=== PATIENT | male | born 1960 | race Two or more races ===

== ENCOUNTER 2019-12-29 08:04 | Outpatient (REF) | payer OTHER, MEDICAID, SELFPAY | END 2019-12-29 08:05 | disposition home or self-care (01) | LOC: HO.LAB 08:04 | PROVIDERS: Visit Provider Internal Medicine | DX: Z20.828 Contact with and (suspected) exposure to other viral communicable diseases (principal) | CPT/HCPCS: C9803; U0003 ==

== ENCOUNTER 2020-02-09 08:56 | Outpatient (REF) | payer OTHER, MEDICAID, SELFPAY | END 2020-02-09 08:57 | disposition home or self-care (01) | LOC: HO.LAB 08:56 | PROVIDERS: Visit Provider Internal Medicine | DX: Z20.822 Contact with and (suspected) exposure to COVID-19 (principal) | CPT/HCPCS: 36415; C9803; U0003 ==

== ENCOUNTER 2020-02-26 07:03 | Outpatient (REF) | payer OTHER, MEDICAID, SELFPAY ==
[2020-02-26 07:58] LABS: MANUAL DIFF FLAG NO
[2020-02-26 08:13] LABS: Basophils Percent Auto 0.6 % (0-2); Eosinophils Absolute Auto 0.6 X10*3/uL (0.0-0.4); Eosinophils Percent Auto 8.8 % (0-4); Hematocrit 42.7 % (42-52); Hemoglobin 13.8 g/dl (14.0-18.0); Imm Gran Abs Auto 0.03 X10*3/uL (0.00-0.03); Imm Gran Pct Auto 0.4 % (0.0-0.4); Lymphocytes Absolute Auto 0.9 X10*3/uL (1.2-4.9); Lymphocytes Percent Auto 12.9 % (20-40); Mean Corpuscular HGB Conc 32.3 g/dl (31.0-36.0); Mean Corpuscular Hemoglobin 30.5 pg (27.0-33.0); Mean Corpuscular Volume 94.3 fL (80-98); Mean Platelet Volume 9.9 fL (9.4-12.4); Monocytes Absolute Auto 0.7 X10*3/uL (0.1-1.2); Monocytes Percent Auto 10.3 % (2-11); Neutrophils Absolute Auto 4.8 X10*3/uL (2.0-8.3); Platelet Count 272 X10*3/uL (160-400); Red Blood Count 4.53 X10*6/uL (4.60-5.80); Red Cell Distribution Width 12.8 % (11.0-16.0); White Blood Count 7.1 X10*3/uL (4.8-10.8)
[2020-02-26 08:38] LABS: Alanine Aminotransferase 14 U/L (0-40); Albumin Level 4.3 g/dL (3.5-5.0); Alkaline Phosphatase 63 U/L (39-117); Anion Gap 13 (12-20); Aspartate Amino Transferase 15 U/L (5-37); Bilirubin Total 0.3 mg/dL (0.0-1.0); Blood Urea Nitrogen 30 mg/dL (9-16); Calcium 9.4 mg/dL (8.4-10.2); Carbon Dioxide 26 mmol/L (22-29); Chloride 105 mmol/L (96-108); Estimated Glomerular Filt Rate 59; Glucose Random 171 mg/dL (60-115); Potassium 4.9 mmol/l (3.3-5.1); Sodium 139 mmol/L (135-145); Total Protein 7.1 g/dL (6.5-8.0)
[2020-02-26 08:42] LABS: Estimated Average Glucose 214 mg/dL; Hemoglobin A1c % 9.1 %
== END 2020-02-26 07:04 | disposition home or self-care (01) ==
LOC: HO.LAB 07:03
PROVIDERS: PCP Internal Medicine; Visit Provider Internal Medicine
DX: I10 Essential (primary) hypertension (principal); E11.9 Type 2 diabetes mellitus without complications
CPT/HCPCS: 36415; 80053; 83036; 85025

== ENCOUNTER 2020-09-16 09:00 | Outpatient (REF) | payer MEDICARE, MEDICAID, SELFPAY ==
[2020-09-16 09:52] LABS: MANUAL DIFF FLAG NO
[2020-09-16 10:01] LABS: Basophils Absolute Auto 0.1 X10*3/uL (0.0-0.2); Basophils Percent Auto 0.7 % (0-2); Eosinophils Absolute Auto 0.9 X10*3/uL (0.0-0.4); Eosinophils Percent Auto 10.6 % (0-4); Hematocrit 42.9 % (42-52); Hemoglobin 14.1 g/dl (14.0-18.0); Imm Gran Abs Auto 0.03 X10*3/uL (0.00-0.03); Imm Gran Pct Auto 0.3 % (0.0-0.4); Lymphocytes Absolute Auto 2.4 X10*3/uL (1.2-4.9); Mean Corpuscular HGB Conc 32.9 g/dl (31.0-36.0); Mean Corpuscular Hemoglobin 30.5 pg (27.0-33.0); Mean Corpuscular Volume 92.9 fL (80-98); Mean Platelet Volume 10.3 fL (9.4-12.4); Monocytes Absolute Auto 0.7 X10*3/uL (0.1-1.2); Monocytes Percent Auto 7.8 % (2-11); Neutrophils Absolute Auto 4.7 X10*3/uL (2.0-8.3); Neutrophils Percent Auto 53.6 % (45-73); Platelet Count 282 X10*3/uL (160-400); Red Blood Count 4.62 X10*6/uL (4.60-5.80); Red Cell Distribution Width 12.9 % (11.0-16.0); White Blood Count 8.8 X10*3/uL (4.8-10.8)
[2020-09-16 10:24] LABS: Estimated Average Glucose 154 mg/dL
[2020-09-16 10:27] LABS: Alanine Aminotransferase 15 U/L (0-40); Albumin Level 4.1 g/dL (3.5-5.0); Alkaline Phosphatase 54 U/L (39-117); Anion Gap 12 (12-20); Aspartate Amino Transferase 18 U/L (5-37); Bilirubin Total 0.4 mg/dL (0.0-1.0); Blood Urea Nitrogen 31 mg/dL (9-16); Carbon Dioxide 23 mmol/L (22-29); Chloride 106 mmol/L (96-108); Estimated Glomerular Filt Rate 56; Glucose Random 109 mg/dL (60-115); Sodium 136 mmol/L (135-145); Total Protein 6.9 g/dL (6.5-8.0)
== END 2020-09-16 09:01 | disposition home or self-care (01) ==
LOC: HO.LAB 09:00
PROVIDERS: PCP Internal Medicine; Visit Provider Internal Medicine
DX: Z01.818 Encounter for other preprocedural examination (principal); E11.9 Type 2 diabetes mellitus without complications; I10 Essential (primary) hypertension
CPT/HCPCS: 36415; 80053; 83036; 85025

== ENCOUNTER 2021-04-05 15:00 | Outpatient (RCR) | payer MEDICARE, MEDICAID, SELFPAY | END 2021-04-05 15:57 | disposition home or self-care (01) | LOC: HO.PT 15:00 | PROVIDERS: PCP Internal Medicine; Visit Provider Orthopaedic Surgery | DX: Z98.890 Other specified postprocedural states (principal) | CPT/HCPCS: 97035; 97110; 97112; 97140; 97162; 97530 ==

== ENCOUNTER 2021-04-06 05:58 | Outpatient (REF) | payer MEDICARE, MEDICAID, SELFPAY ==
[2021-04-06 06:13] LABS: MANUAL DIFF FLAG NO
[2021-04-06 07:19] LABS: Basophils Absolute Auto 0.1 X10*3/uL (0.0-0.2); Basophils Percent Auto 0.5 % (0-2); Eosinophils Percent Auto 11.4 % (0-4); Hematocrit 44.3 % (42.0-52.0); Hemoglobin 14.6 g/dl (14.0-18.0); Imm Gran Abs Auto 0.04 X10*3/uL (0.00-0.03); Imm Gran Pct Auto 0.4 % (0.0-0.4); Lymphocytes Absolute Auto 2.4 X10*3/uL (1.2-4.9); Lymphocytes Percent Auto 26.2 % (20-40); Mean Corpuscular Hemoglobin 30.7 pg (27.0-33.0); Mean Corpuscular Volume 93.3 fL (80.0-98.0); Monocytes Absolute Auto 0.7 X10*3/uL (0.1-1.2); Monocytes Percent Auto 7.7 % (2-11); Neutrophils Absolute Auto 4.9 x10*3/uL (2.0-8.3); Neutrophils Percent Auto 53.8 % (45-73); Platelet Count 281 X10*3/uL (160-400); Red Blood Count 4.75 X10*6/uL (4.60-5.80); Red Cell Distribution Width 13.2 % (11.0-16.0); White Blood Count 9.2 X10*3/uL (4.8-10.8)
[2021-04-06 07:36] LABS: Estimated Average Glucose 148 mg/dL; Hemoglobin A1c % 6.8 %
[2021-04-06 07:46] LABS: Alanine Aminotransferase 13 U/L (0-40); Albumin Level 4.3 g/dL (3.5-5.0); Alkaline Phosphatase 70 U/L (39-117); Anion Gap 12 (12-20); Aspartate Amino Transferase 16 U/L (5-37); Bilirubin Total 0.3 mg/dL (0.0-1.0); Blood Urea Nitrogen 35 mg/dL (9-16); Calcium 10.4 mg/dL (8.4-10.2); Carbon Dioxide 24 mmol/L (22-29); Chloride 108 mmol/L (96-108); Cholesterol 134 mg/dL; Estimated Glomerular Filt Rate 53; Glucose Fasting 135 mg/dL (60-99); HDL Cholesterol 33 mg/dL; LDL Cholesterol Calculated 72 mg/dl; Potassium 5.2 mmol/L (3.3-5.1); Sodium 139 mmol/L (135-145); Total Protein 7.5 g/dL (6.5-8.0); Triglycerides 146 mg/dL
[2021-04-06 08:09] LABS: Prostate Specific Antigen Scr 0.24 ng/mL (<0.05-4.0)
[2021-04-06 08:23] LABS: Appearance Urine CLEAR; Color Urine YELLOW; Glucose Urine UA NEG (NEG); Leukocyte Esterase Urine NEG (NEG); Nitrite Urine NEG (NEG); PH 5.5 (5.0-8.0); Specific Gravity - Urine >= 1.030 (1.005-1.025); Urine Blood NEG (NEG); Urine Ketones NEG (NEG); Urine Protein 2+ MG/DL (NEG-TRACE)
[2021-04-06 08:44] LABS: RBC Urine 0 /HPF (0); Squamous Epithelial Cell Urine TRACE /LPF; WBC Urine 0 /HPF (0-4)
[2021-04-06 08:46] LABS: Creatinine Urine 81.64 mg/dL
[2021-04-06 09:03] LABS: Microalbum/Creatinine Ratio Ur 805.9 ug/mg cr
== END 2021-04-06 05:59 | disposition home or self-care (01) ==
LOC: HO.LAB 05:58
PROVIDERS: PCP Internal Medicine; Visit Provider Internal Medicine
DX: I12.9 Hypertensive chronic kidney disease with stage 1 through stage 4 chronic kidney disease, or unspecified chronic kidney disease (principal); E11.22 Type 2 diabetes mellitus with diabetic chronic kidney disease; E78.00 Pure hypercholesterolemia, unspecified; N40.0 Benign prostatic hyperplasia without lower urinary tract symptoms; N18.9 Chronic kidney disease, unspecified; Z12.5 Encounter for screening for malignant neoplasm of prostate
CPT/HCPCS: 36415; 80053; 80061; 81001; 82043; 83036; 84153; 85025

== ENCOUNTER 2021-05-12 09:53 | Outpatient (REF) | payer OTHER, MEDICAID, SELFPAY ==
--- NOTE | ~2021-05-12 | US_ITS ---
EXAMINATION: US EXTRACRANIAL CAROTID DUPLEX, BILATERAL CLINICAL INFORMATION: Carotid stenosis COMPARISON: Carotid duplex on 07/31/2018 TECHNIQUE: Real-time ultrasound and Doppler techniques (integrating B-mode 2-D vascular images, Doppler spectral analysis and color-flow Doppler imaging) were utilized to interrogate the extracranial carotid arteries, the vertebral arteries and proximal subclavian arteries bilaterally. The degree of stenosis is determined by criteria similar to NASCET. FINDINGS: Right Side: 1. There is calcified atherosclerotic plaque seen in the bifurcation/proximal ICA region. 2. The common carotid artery PSV proximally is 103 cm/s and distally 175 cm/s. 3. The proximal internal carotid artery velocities are 224 cm/s systolic and 49 cm/s diastolic. 4. The proximal external carotid artery PSV is 177 cm/s. 5. The vertebral artery shows antegrade flow. 6. The subclavian artery waveforms are normal. Left Side: 1. There is calcified atherosclerotic plaque seen in the bifurcation/proximal ICA region. 2. The common carotid artery PSV proximally is 120 cm/s and distally 240 cm/s. 3. The proximal internal carotid artery velocities are 159 cm/s systolic and 28 cm/s diastolic. 4. The proximal external carotid artery PSV is 168 cm/s. 5. The vertebral artery shows antegrade flow. 6. The subclavian artery waveforms are normal. US/US carotid duplex BI IMPRESSION: 1. RIGHT: Moderate, hemodynamically significant stenosis of the proximal right internal carotid artery corresponding to a 50-79% stenosis by velocity criteria. 2. LEFT: Moderate, hemodynamically significant stenosis of the proximal left internal carotid artery corresponding to a 50-79% stenosis by velocity criteria. 3. Progression of disease on the left compared to 07/31/2018.
== END 2021-05-12 09:54 | disposition home or self-care (01) ==
LOC: HO.US 09:53
PROVIDERS: Visit Provider Internal Medicine
DX: I65.23 Occlusion and stenosis of bilateral carotid arteries (principal)
CPT/HCPCS: 93880

== ENCOUNTER → 2021-06-28 12:53 | Outpatient (BNVA) | payer OTHER, SELFPAY | PROVIDERS: PCP Internal Medicine; Visit Provider Surgery Vascular Surgery | DX: I65.23 Occlusion and stenosis of bilateral carotid arteries (principal) | CPT/HCPCS: 99202 ==

== ENCOUNTER 2021-07-12 13:58 | Outpatient (REF) | payer OTHER, SELFPAY ==
[2021-07-12 15:03] LABS: Blood Urea Nitrogen 35 mg/dL (9-16); Estimated Glomerular Filt Rate 49
== END 2021-07-12 13:59 | disposition home or self-care (01) ==
LOC: HO.LAB 13:58
PROVIDERS: PCP Internal Medicine; Visit Provider Surgery Vascular Surgery
DX: Z01.810 Encounter for preprocedural cardiovascular examination (principal); I65.23 Occlusion and stenosis of bilateral carotid arteries
CPT/HCPCS: 36415; 82565; 84520

== ENCOUNTER → 2021-07-19 13:15 | Outpatient (BNVA) | payer OTHER, SELFPAY | PROVIDERS: PCP Internal Medicine; Visit Provider Surgery Vascular Surgery | DX: I65.21 Occlusion and stenosis of right carotid artery (principal) | CPT/HCPCS: 99212 ==

== ENCOUNTER → 2021-07-20 13:03 | Outpatient (BNVA) | payer OTHER, SELFPAY | PROVIDERS: PCP Internal Medicine; Referring Provider Surgery Vascular Surgery; Visit Provider Internal Medicine | DX: Z01.810 Encounter for preprocedural cardiovascular examination (principal); I65.21 Occlusion and stenosis of right carotid artery; E11.9 Type 2 diabetes mellitus without complications; I10 Essential (primary) hypertension; E78.5 Hyperlipidemia, unspecified | CPT/HCPCS: 93005; 99202 ==

== ENCOUNTER 2021-07-26 | Outpatient (REF) | payer OTHER, SELFPAY ==
[2021-07-26 11:57] VITALS: BP 141/77; PULSE 84; RESP 16; O2SAT 96; BMI 30.7
--- NOTE | 2021-07-26 12:52 | P.CONAN_ITS ---
HPI - Anesthesia Eval Consult details Narrative: Postive stress. Needs cath per Dr Talha Elizabethyo M for Right Carotid Endarterectomy Cardiac clearance pending ECHO/Stress Chronic left eye irritation d/t welding Critically high Ca reviewed with Dr Meade. OK to proceed with urgent CEA. [facility] Active Problems Active Problems: All Active Problems (Updated 07/26/21 @ 12:35 by Rachel Hernandez, RN) Bilateral carotid artery stenosis (Acute) Right cavernous carotid stenosis (Acute) Preoperative cardiovascular examination (Acute) Carotid stenosis, right (Acute) Type 2 diabetes mellitus with unspecified complications (Acute) Essential hypertension (Acute) Other and unspecified hyperlipidemia (Acute) Past Medical History Medical History Carotid stenosis Diabetes Elevated cholesterol Gout History of CVA (cerebrovascular accident) HTN (hypertension) Left eye symptoms Migraines Peripheral neuropathy Family History Family History Father No problems noted. Mother Heart disease Family history of problems with anesthesia: No Surgical History Surgical History History of ankle surgery Hx of bilateral hip replacements Hx of colonoscopy History of Problems with Anesthesia: No Social History Social History Household Members: Spouse Housing: Apartment Are you a primary wound care rn to a significant other at home: No Do you presently have visiting nurse or other home services: No Alcohol intake: never Patient Tobacco Use Status: Former Tobacco user Quit Date: 2016 Tobacco use type: Cigarette Narrative Narrative: URI 3 weeks ago, mostly resolved, mild cough now 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, welding Meds Allergies Allergy/AdvReac Type Severity Reaction Status Date / Time No Known Allergies Allergy Verified 08/02/21 13:22 Home Medications Medication Instructions Recorded Confirmed Last Taken Type albuterol sulfate 90 mcg/actuation 2 puff PO QID PRN Shortness Of 06/28/21 08/02/21 Unknown History aerosol inhaler Breath Or Wheezing allopurinol 100 mg tablet 100 mg PO DAILY 06/28/21 08/02/21 Unknown History atorvastatin 20 mg tablet 20 mg PO DAILY 06/28/21 08/02/21 Unknown History bromfenac 0.07 % eye drops 1 drp ophthalmic-Left QAM 06/28/21 08/02/21 Unknown History (Prolensa) gabapentin 300 mg capsule 600 mg PO BID 06/28/21 08/02/21 Unknown History glipizide 5 mg tablet 10 mg PO BID 06/28/21 08/02/21 Unknown History hydrochlorothiazide 25 mg tablet 25 mg PO DAILY 06/28/21 08/02/21 Unknown History metformin 500 mg tablet 1,000 mg PO BID 06/28/21 08/02/21 Unknown History sitagliptin 100 mg tablet (Januvia) 100 mg PO DAILY 06/28/21 08/02/21 Unknown History Exam Exam Date and Time: July 26, 2021 125 Height,Weight and Vital Signs: Height 5 ft 6 in Weight 86.183 kg Last Vital Signs Pulse 84 07/26/21 11:57 Resp 16 07/26/21 11:57 BP 141/77 H 07/26/21 11:57 Pulse Ox 96 07/26/21 11:57 O2 Del Method 07/26/21 11:57 Pertinent Lab Results Pertinent Lab Results: Lab Results 07/26/21 07/26/21 07/26/21 Range/Units 13:17 13:25 13:25 WBC 11.0 H (4.8-10.8) X10*3/uL RBC 4.69 (4.60-5.80) X10*6/uL Hgb 14.1 (14.0-18.0) g/dl Hct 43.6 (42.0-52.0) % MCV 93.0 (80.0-98.0) fL MCH 30.1 (27.0-33.0) pg MCHC 32.3 (31.0-36.0) g/dl RDW 13.0 (11.0-16.0) % Plt Count 347 (160-400) X10*3/uL MPV 9.6 (9.4-12.4) fL Absolute Nucleated RBC 0.000 (0.0-0.012) X10*3/uL Nucleated RBC % (auto) 0.0 (0.0-0.2) /100WBC PT 10.8 (9.9-13.0) SEC INR 1.0 (0.9-1.1) APTT 34.3 (24.1-38.0) SEC Sodium (135-145) mmol/L Potassium (3.3-5.1) mmol/L Chloride (96-108) mmol/L Carbon Dioxide (22-29) mmol/L Anion Gap (12-20) BUN (9-16) mg/dL Creatinine (0.5-1.4) mg/dL Estim Creat Clear Calc Estimated GFR Random Glucose (60-115) mg/dL Calcium (8.4-10.2) mg/dL Blood Type A Positive Antibody Screen NEGATIVE 07/26/21 Range/Units 13:25 WBC (4.8-10.8) X10*3/uL RBC (4.60-5.80) X10*6/uL Hgb (14.0-18.0) g/dl Hct (42.0-52.0) % MCV (80.0-98.0) fL MCH (27.0-33.0) pg MCHC (31.0-36.0) g/dl RDW (11.0-16.0) % Plt Count (160-400) X10*3/uL MPV (9.4-12.4) fL Absolute Nucleated RBC (0.0-0.012) X10*3/uL Nucleated RBC % (auto) (0.0-0.2) /100WBC PT (9.9-13.0) SEC INR (0.9-1.1) APTT (24.1-38.0) SEC Sodium 137 (135-145) mmol/L Potassium 5.4 H (3.3-5.1) mmol/L Chloride 105 (96-108) mmol/L Carbon Dioxide 24 (22-29) mmol/L Anion Gap 13 (12-20) BUN 37 H (9-16) mg/dL Creatinine 1.39 (0.5-1.4) mg/dL Estim Creat Clear Calc 55.9 Estimated GFR 52 Random Glucose 78 (60-115) mg/dL Calcium 12.8 H* D (8.4-10.2) mg/dL Blood Type Antibody Screen Narrative Narrative: EKG 07/2021 sinus rhythm at 81/Min; right bundle-branch block pattern; left anterior fascicular block, bifascicular block. US carotid duplex BI 07/2021 IMPRESSION: 1. RIGHT: Moderate, hemodynamically significant stenosis of the proximal right internal carotid artery corresponding to a 50-79% stenosis by velocity criteria. ? 2. LEFT: Moderate, hemodynamically significant stenosis of the proximal left internal carotid artery corresponding to a 50-79% stenosis by velocity criteria. ? 3. Progression of disease on the left compared to 07/31/2018. Airway Mallampati Class: II TM Dist: >3cm Neck ROM: Full Loose/Missing/Broken Teeth: Yes (Missing fillings from molars, missing molars) Heart: RRR Lungs: CTAB Assessment and Plan Assessment Anesthesia Assessment: Anesthesia Plan Discussed and PAT Visit Final Anesthetic Review Family History of Problems with Anesthesia: No History of Problems with Anesthesia: No
[2021-07-26 13:53] LABS: Hematocrit 43.6 % (42.0-52.0); Hemoglobin 14.1 g/dl (14.0-18.0); Mean Corpuscular HGB Conc 32.3 g/dl (31.0-36.0); Mean Corpuscular Hemoglobin 30.1 pg (27.0-33.0); Mean Platelet Volume 9.6 fL (9.4-12.4); Platelet Count 347 X10*3/uL (160-400); Red Blood Count 4.69 X10*6/uL (4.60-5.80)
[2021-07-26 14:05] LABS: Prothrombin Time 10.8 SEC (9.9-13.0)
[2021-07-26 14:07] LABS: Partial Thromboplastin Time 34.3 SEC (24.1-38.0)
[2021-07-26 15:54] LABS: Anion Gap 13 (12-20); Blood Urea Nitrogen 37 mg/dL (9-16); Carbon Dioxide 24 mmol/L (22-29); Chloride 105 mmol/L (96-108); Creatinine Clr Calc Pharmacy 55.9; Estimated Glomerular Filt Rate 52; Glucose Random 78 mg/dL (60-115); Potassium 5.4 mmol/L (3.3-5.1); Sodium 137 mmol/L (135-145)
[2021-07-26 16:07] LABS: Calcium 12.8 mg/dL (8.4-10.2)
== END 2021-07-26 00:01 | disposition home or self-care (01) ==
LOC: HO.PAT
PROVIDERS: Nurse Practitioner; PCP Internal Medicine; Visit Provider Surgery Vascular Surgery
DX: Z01.818 Encounter for other preprocedural examination (principal); I65.21 Occlusion and stenosis of right carotid artery
CPT/HCPCS: 36415; 80048; 85027; 85610; 85730; 86850; 86900; 86901

== ENCOUNTER → 2021-07-28 09:46 | Outpatient (REF) | payer OTHER, SELFPAY ==
--- NOTE | ~2021-07-28 | NM_ITS ---
Exercise Myocardial perfusion study Indication: Preoperative cardiovascular stratification Technique: The patient was brought in for an exercise perfusion study on 07/28/2021. Patient performed exercise as per Erasto protocol and was injected 30 mCi of sestamibi was given intravenously one target HR was achieved. Images were obtained using the SPECT gamma camera interlaced with the gating device. Images were obtained in supine position. Resting perfusion study was performed on 07/29/2021. Patient was administered 30 mCi of sestamibi intravenously at rest. Images were then obtained in supine position. Images obtained with and without CT attenuation. Total DLP 85 mGy-cm. Images were processed with the software and compared side to side in short axis, horizontal long axis and vertical long axis views. Findings: The stress perfusion study showed non attenuated images show moderately reduced uptake in the inferior and severely reduced uptake in the mid and apical inferolateral as well as mildly reduced uptake in the inferoseptal wall of the LV myocardium. Remainder of the LV myocardium is normally perfused. Attenuation corrected images show mildly to moderately reduced uptake in the inferolateral wall of the LV myocardium.. The gated study could not be performed during stress testing due to irregular heart beat. LV cavity is mildly dilated in size. . There is presence of transient ischemic dilation on visual evaluation. Resting study shows nontender images show improved uptake in the inferior wall of the LV myocardium as well as the inferolateral wall of the LV myocardium. Attenuated corrected images also show inferolateral segment.. Gating at rest reveals normal systolic wall motion with ejection fraction at 68%. The findings are consistent with there is evidence of moderate intensity inferolateral ischemia, ischemia cannot be ruled out on this study. NM/NM cardiolite stress test Impression: 1. Inferolateral ischemia with possibility of inferior ischemia as well 2. Gated LVEF is 68% at rest 3. Transient ischemic dilatation present on visually evaluation Stress EKG is positive for ischemia
--- NOTE | 2021-07-28 09:55 | CA_ITS ---
Acquisition Time: 2021-07-28 10:13:19 Total Exercise Time: 00:08:00 Test Indications: PREOP Medications: Protocol: MICHELE Max HR: 136 BPM 86% of Pred: 157 BPM Max BP: 150/080 mmHG Max Work Load: 10.1 METS Exercise stress test with exercise 8 min of Michele protocol, achieving 86% MPHR, 10.1 METs with mild sob, 3/10 mid chest pressure, with isolated PVC, with normotensive response to exercise, without EKG changes of ischemia at peak exercise with upsloiping ST segments, then in recovery there is horizontal ST depressions inferiorly adn V3-V6 which become downsloping depression with slow gradual improvement back to baseline. In recoveyr his chest pressure resolved. Nuclear images pending. Test rev iewed with Dr Zamora. Referred By: Chapito Palencia Overread By: ALISE CORRAL
== END ==
LOC: HO.CARD 09:46
PROVIDERS: PCP Internal Medicine; Visit Provider Internal Medicine
DX: Z01.810 Encounter for preprocedural cardiovascular examination (principal)
CPT/HCPCS: 78452; 93017; A9500

== ENCOUNTER 2021-08-02 14:08 | Outpatient (REF) | payer OTHER, SELFPAY ==
[2021-08-02 14:17] LABS: MANUAL DIFF FLAG NO
[2021-08-02 14:54] LABS: Basophils Absolute Auto 0.1 X10*3/uL (0.0-0.2); Basophils Percent Auto 0.5 % (0-2); Eosinophils Percent Auto 10.1 % (0-4); Hematocrit 39.8 % (42.0-52.0); Hemoglobin 12.8 g/dl (14.0-18.0); Imm Gran Abs Auto 0.05 X10*3/uL (0.00-0.03); Imm Gran Pct Auto 0.5 % (0.0-0.4); Lymphocytes Percent Auto 20.9 % (20-40); Mean Corpuscular HGB Conc 32.2 g/dl (31.0-36.0); Mean Corpuscular Hemoglobin 30.1 pg (27.0-33.0); Mean Corpuscular Volume 93.6 fL (80.0-98.0); Mean Platelet Volume 9.9 fL (9.4-12.4); Monocytes Absolute Auto 0.7 X10*3/uL (0.1-1.2); Monocytes Percent Auto 7.3 % (2-11); Neutrophils Absolute Auto 5.9 x10*3/uL (2.0-8.3); Neutrophils Percent Auto 60.7 % (45-73); Platelet Count 284 X10*3/uL (160-400); Red Blood Count 4.25 X10*6/uL (4.60-5.80); Red Cell Distribution Width 13.1 % (11.0-16.0); White Blood Count 9.7 X10*3/uL (4.8-10.8)
[2021-08-02 15:03] LABS: INTERNATIONAL NORM RATIO 0.9 (0.9-1.1); Prothrombin Time 10.8 SEC (10.0-13.1)
[2021-08-02 15:21] LABS: Anion Gap 11 (12-20); Blood Urea Nitrogen 24 mg/dL (9-16); Calcium 9.2 mg/dL (8.4-10.2); Carbon Dioxide 27 mmol/L (22-29); Chloride 104 mmol/L (96-108); Estimated Glomerular Filt Rate 50; Glucose Random 202 mg/dL (60-115); Potassium 5.4 mmol/L (3.3-5.1); Sodium 137 mmol/L (135-145)
== END 2021-08-02 14:09 | disposition home or self-care (01) ==
LOC: HO.LAB 14:08
PROVIDERS: PCP Internal Medicine; Visit Provider Nurse Practitioner Family
DX: Z01.810 Encounter for preprocedural cardiovascular examination (principal); R94.39 Abnormal result of other cardiovascular function study; R07.89 Other chest pain; I65.23 Occlusion and stenosis of bilateral carotid arteries; I10 Essential (primary) hypertension; E78.5 Hyperlipidemia, unspecified; Z86.73 Personal history of transient ischemic attack (TIA), and cerebral infarction without residual deficits
CPT/HCPCS: 36415; 80048; 85025; 85610; 99212

== ENCOUNTER 2021-08-09 05:54 | Outpatient (REF) | payer OTHER, SELFPAY ==
[2021-08-09 07:43] LABS: Anion Gap 13 (12-20); Blood Urea Nitrogen 32 mg/dL (9-16); Carbon Dioxide 25 mmol/L (22-29); Chloride 106 mmol/L (96-108); Estimated Glomerular Filt Rate 49; Glucose Random 93 mg/dL (60-115); Potassium 4.7 mmol/L (3.3-5.1); Sodium 139 mmol/L (135-145)
== END 2021-08-09 05:55 | disposition home or self-care (01) ==
LOC: HO.LAB 05:54
PROVIDERS: PCP Internal Medicine; Visit Provider Nurse Practitioner Family
DX: I10 Essential (primary) hypertension (principal)
CPT/HCPCS: 36415; 80048

== ENCOUNTER → 2021-08-26 12:41 | Outpatient (BNVA) | payer OTHER, SELFPAY | PROVIDERS: PCP Internal Medicine; Visit Provider Nurse Practitioner Family | DX: Z01.810 Encounter for preprocedural cardiovascular examination (principal); I25.10 Atherosclerotic heart disease of native coronary artery without angina pectoris; R94.39 Abnormal result of other cardiovascular function study; R07.89 Other chest pain; I65.23 Occlusion and stenosis of bilateral carotid arteries; I10 Essential (primary) hypertension; E78.5 Hyperlipidemia, unspecified; Z86.73 Personal history of transient ischemic attack (TIA), and cerebral infarction without residual deficits; Z79.82 Long term (current) use of aspirin; Z79.899 Other long term (current) drug therapy; Z98.890 Other specified postprocedural states | CPT/HCPCS: 99212 ==

== ENCOUNTER → 2021-08-30 15:10 | Outpatient (BNVA) | payer OTHER, SELFPAY | PROVIDERS: PCP Internal Medicine; Visit Provider Surgery Vascular Surgery | DX: I65.21 Occlusion and stenosis of right carotid artery (principal); Z98.890 Other specified postprocedural states | CPT/HCPCS: 99212 ==

== ENCOUNTER 2021-09-05 06:09 | Inpatient (IN) | payer OTHER, SELFPAY ==
[2021-08-31 08:47] VITALS: BMI 30.7
--- NOTE | 2021-09-01 15:06 | HO.ANESPROP2 ---
Documented by User: Deepali Oseguera NP 09/01/21 15:12 HPI - Anesthesia Eval Consult details Narrative: 61yo M for Right Carotid Endarterectomy Cardiac cleared Preop for carotid endarterectomy. May proceed with intermediate cardiac risk. Continue cardiac medications including BB and statin. Aspirin could be held if needed, then restarted as soon as clear by surgeon to do so. Call/ consult cardiology if needed Chronic left eye irritation d/t welding [facility] Active Problems Active Problems: All Active Problems (Updated 08/31/21 @ 08:54 by Rosanna Rao RN) Bilateral carotid artery stenosis (Acute) Right cavernous carotid stenosis (Acute) Preoperative cardiovascular examination (Acute) Carotid stenosis, right (Acute) Type 2 diabetes mellitus with unspecified complications (Acute) Essential hypertension (Acute) Other and unspecified hyperlipidemia (Acute) Abnormal nuclear stress test (Acute) Chest discomfort (Acute) S/P cardiac cath (Acute) CAD (coronary artery disease) (Acute) Past Medical History Medical History (Updated 08/31/21 @ 08:54 by Rosanna Rao RN) Carotid stenosis Diabetes Elevated cholesterol Gout History of CVA (cerebrovascular accident) HTN (hypertension) Left eye symptoms Migraines Peripheral neuropathy Positive cardiac stress test Family History Family History Father No problems noted. Mother Heart disease Family history of problems with anesthesia: No Surgical History Surgical History History of ankle surgery Hx of bilateral hip replacements Hx of colonoscopy History of Problems with Anesthesia: No Social History Social History Household Members: Spouse Housing: Apartment Are you a primary primary health care nurse to a significant other at home: No Do you presently have visiting nurse or other home services: No Alcohol intake: never Patient Tobacco Use Status: Former Tobacco user Quit Date: 2016 Tobacco use type: Cigarette Use of substances other than those prescribed or required for medical reasons: No Have you been hit, kicked, punched, or otherwise hurt by someone within the past year? If so, by whom?: No Are you DNR?: No Advance Directives: No Advance Directives Information Provided: Yes (brochure mailed) Advance Directives on File: No Recently lost weight without trying: No Eating poorly because of decreased appetite: No Nutrition Risks: No Nutritional Risk Poor oral hygiene: No Meds Allergies Allergy/AdvReac Type Severity Reaction Status Date / Time No Known Allergies Allergy Verified 08/30/21 15:18 Home Medications Medication Instructions Recorded Confirmed Last Taken Type albuterol sulfate 90 mcg/actuation 2 puff PO QID PRN Shortness Of 06/28/21 08/31/21 Unknown History aerosol inhaler Breath Or Wheezing allopurinol 100 mg tablet 100 mg PO DAILY 06/28/21 08/31/21 Unknown History bromfenac 0.07 % eye drops 1 drp ophthalmic-Left QAM 06/28/21 08/31/21 Unknown History (Prolensa) gabapentin 300 mg capsule 600 mg PO BID 06/28/21 08/31/21 09/05/21 History glipizide 5 mg tablet 10 mg PO BID 06/28/21 08/31/21 Unknown History hydrochlorothiazide 25 mg tablet 25 mg PO DAILY 06/28/21 08/31/21 Unknown History metformin 500 mg tablet 1,000 mg PO BID 06/28/21 08/31/21 Unknown History sitagliptin 100 mg tablet (Januvia) 100 mg PO DAILY 06/28/21 08/31/21 Unknown History aspirin 81 mg tablet,delayed 81 mg PO DAILY 08/26/21 08/31/21 09/05/21 History release insulin detemir U-100 100 unit/mL 14 unit subcut DAILY 08/30/21 08/31/21 Unknown History (3 mL) subcutaneous pen (Levemir FlexTouch U-100 Insulin) Exam Exam Date and Time: September 01, 2021 1506 Height,Weight and Vital Signs: Height 5 ft 6 in Weight 86.183 kg Pertinent Lab Results Pertinent Lab Results: Laboratory Tests 08/02/21 08/09/21 14:14 06:02 WBC 9.7 Hgb 12.8 L Hct 39.8 L Plt Count 284 Sodium 139 Potassium 4.7 Chloride 106 Carbon Dioxide 25 BUN 32 H Creatinine 1.45 H Narrative Narrative: Cardiac cath 08/12/2021 showing significant stenosis in the OM1 branch, moderate stenosis of the OM 2 branch and mid LAD, mild stenosis of the RCA.? He was managed medically EKG 07/2021 sinus rhythm at 81/Min; right bundle-branch block pattern; left anterior fascicular block, bifascicular block NM cardiolite stress test 07/2021 Impression: ? 1.? Inferolateral ischemia with possibility of inferior ischemia as well 2.? Gated LVEF is 68% at rest 3. Transient ischemic dilatation present on visually evaluation ? Stress EKG is positive for ischemia Airway Mallampati Class: II TM Dist: >3cm Neck ROM: Full Loose/Missing/Broken Teeth: Yes (Missing fillings from molars, missing molars) Heart: RRR Lungs: CTAB Assessment and Plan Assessment Anesthesia Assessment: Anesthesia Plan Discussed (GA and A-line discussed) and PAT Visit (Seen in PAT prior to stress/cath.) Final Anesthetic Review Family History of Problems with Anesthesia: No History of Problems with Anesthesia: No Documented by User: Stevan Tyler MD 09/05/21 09:48 HPI - Anesthesia Eval Consult details Narrative: 61yo M for Right Carotid Endarterectomy Cardiac cleared Preop for carotid endarterectomy. May proceed with intermediate cardiac risk. Continue cardiac medications including BB and statin. Aspirin could be held if needed, then restarted as soon as clear by surgeon to do so. 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 [facility] Past Medical History Medical History (Updated 08/31/21 @ 08:54 by Rosanna Rao RN) Carotid stenosis Diabetes Elevated cholesterol Gout History of CVA (cerebrovascular accident) HTN (hypertension) Left eye symptoms Migraines Peripheral neuropathy Positive cardiac stress test Family History Family History Father No problems noted. Mother Heart disease Surgical History Surgical History History of ankle surgery Hx of bilateral hip replacements Hx of colonoscopy Social History Social History Household Members: Spouse Housing: Apartment Are you a primary primary health care nurse to a significant other at home: No Do you presently have visiting nurse or other home services: No Alcohol intake: never Patient Tobacco Use Status: Former Tobacco user Quit Date: 2016 Tobacco use type: Cigarette Use of substances other than those prescribed or required for medical reasons: No Have you been hit, kicked, punched, or otherwise hurt by someone within the past year? If so, by whom?: No Are you DNR?: No Advance Directives: No Advance Directives Information Provided: Yes (brochure mailed) Advance Directives on File: No Recently lost weight without trying: No Eating poorly because of decreased appetite: No Nutrition Risks: No Nutritional Risk Poor oral hygiene: No Meds Allergies Allergy/AdvReac Type Severity Reaction Status Date / Time No Known Allergies Allergy Verified 08/30/21 15:18 Home Medications Medication Instructions Recorded Confirmed Last Taken Type albuterol sulfate 90 mcg/actuation 2 puff PO QID PRN Shortness Of 06/28/21 08/31/21 Unknown History aerosol inhaler Breath Or Wheezing allopurinol 100 mg tablet 100 mg PO DAILY 06/28/21 08/31/21 Unknown History bromfenac 0.07 % eye drops 1 drp ophthalmic-Left QAM 06/28/21 08/31/21 Unknown History (Prolensa) gabapentin 300 mg capsule 600 mg PO BID 06/28/21 08/31/21 09/05/21 History glipizide 5 mg tablet 10 mg PO BID 06/28/21 08/31/21 Unknown History hydrochlorothiazide 25 mg tablet 25 mg PO DAILY 06/28/21 08/31/21 Unknown History metformin 500 mg tablet 1,000 mg PO BID 06/28/21 08/31/21 Unknown History sitagliptin 100 mg tablet (Januvia) 100 mg PO DAILY 06/28/21 08/31/21 Unknown History aspirin 81 mg tablet,delayed 81 mg PO DAILY 08/26/21 08/31/21 09/05/21 History release insulin detemir U-100 100 unit/mL 14 unit subcut DAILY 08/30/21 08/31/21 Unknown History (3 mL) subcutaneous pen (Levemir FlexTouch U-100 Insulin) Exam Airway Loose/Missing/Broken Teeth: Yes (Missing fillings from molars, chipped teeth , poor dentition globally ) Assessment and Plan Assessment Anesthesia Assessment: Chart Reviewed Final Anesthetic Review NPO: Yes ASA Class: III Final Preanesthetic Review: Meds/Allgs Chart Reviewed, Consent Obtained/Reviewed and Anes Risks/Benef Reviewed Patient Risk: High Procedure Risk: Intermediate Anesthetic Plan Anesthetic Plan: GA Disposition: Inp. Admit - ICU
[2021-09-05] VITALS (28 sets, daily range): BP systolic 117–157; BP diastolic 47–65; PULSE 54–71; RESP 12–18; TEMP 36.1–37.1; O2SAT 92–99
[2021-09-05 06:40] LABS: COVID-19 Test Negative (Negative); IDNOW Serial# 55D5AD1C
[2021-09-05] MEDS: Lactated Ringers 1,000 ML 100 ML IVCONT (06:52)
--- NOTE | 2021-09-05 07:08 | PHA.MEDREC ---
Pharmacy Consult ? Medication Reconciliation Pharmacy has reviewed the medication reconciliation done by Rosanna.
[2021-09-05 07:10] LABS: Hematocrit 40.5 % (42.0-52.0); Hemoglobin 13.3 g/dl (14.0-18.0); Mean Corpuscular HGB Conc 32.8 g/dl (31.0-36.0); Mean Corpuscular Hemoglobin 30.9 pg (27.0-33.0); Mean Platelet Volume 9.7 fL (9.4-12.4); Platelet Count 283 X10*3/uL (160-400); Red Blood Count 4.31 X10*6/uL (4.60-5.80)
[2021-09-05 07:17] LABS: INTERNATIONAL NORM RATIO 0.9 (0.9-1.1); Prothrombin Time 9.8 SEC (10.0-13.1)
[2021-09-05 07:19] LABS: Partial Thromboplastin Time 30.5 SEC (26.0-36.4)
[2021-09-05 07:24] LABS: Anion Gap 13 (12-20); Blood Urea Nitrogen 29 mg/dL (9-16); Calcium 9.1 mg/dL (8.4-10.2); Carbon Dioxide 22 mmol/L (22-29); Chloride 111 mmol/L (96-108); Creatinine Clr Calc Pharmacy 62.2; Estimated Glomerular Filt Rate 58; Glucose Random 131 mg/dL (60-115); Potassium 5.3 mmol/L (3.3-5.1); Sodium 141 mmol/L (135-145)
--- NOTE | 2021-09-05 07:35 | MHC.SHP ---
Pre-Procedural Eval Section A Date of Service: 09/05/21 The patient is an INPATIENT: No Changes since office visit: Yes Patient answered all questions The History & Physical has been completed within 30 days and I have reviewed it.: Yes Section B Chief Complaint: POSTOP Allergies: Allergies Allergy/AdvReac Type Severity Reaction Status Date / Time No Known Allergies Allergy Verified 08/30/21 15:18 Plan I have reviewed the history and physical and performed a pertinent physical examination on my patient. No changes have occurred unless specified.
[2021-09-05 09:48] LABS: Glucose, Whole Blood 115 mg/dL (60-115)
--- NOTE | 2021-09-05 10:28 | P.OP_ITS ---
Operative Note Operative Note Date of Service: 09/05/21 Narrative: Operative note by [facility] Preoperative diagnosis: Right carotid stenosis with stroke Postoperative diagnosis: Same Procedure: Right carotid endarterectomy Surgeon:Srikanth Zaidi M.D. Geological Engineering Teacher: Dr. Stahl Anesthesia: General Specimens: 1 Drains: 1 Estimated blood loss: 100 mL Indications: 61-year-old gentleman with right carotid stenosis and history of stroke presents for right carotid endarterectomy prior to the procedure he underwent cardiac risk stratification with cardiac catheterization. He now presents for right carotid endarterectomy The patient has signed the informed consent after reviewing risks, complications, benefits, and alternatives previously discussed with the patient. The patient was given the opportunity to ask any additional questions or voice any concerns. All questions were answered to the patient's satisfaction. Procedure in detail: Patient was brought to the operating room prior to which a time-out was called for patient identification site verification. Right neck was prepped and draped in standard surgical fashion. Incision was carried out over the anterior border of the sternocleidomastoid. We were a easily able to identify the carotid sheath. Prior to entering we ligated the facial branch the internal jugular vein. Once this was done we were able to easily identify the bifurcation and we subsequently continued I dissection. Around the common carotid we placed a room L tourniquet external and internal carotids were isolated with silastic loops. Once this was accomplished 5000 units of systemic heparin was administered. After 5 minutes of circulation time we clamped the internal common and external carotids in that order. Once this was done 11 blade was used to create an arteriotomy from the common carotid to the internal carotid. Once this was opened we dissected this clear. And we were able to place an 8 [place] Torres shunt. Once in position we confirmed its patency through flow from the side port. We then undertook the endarterectomy. There was an extensive endarterectomy that went proximally and was very friable necrotic atherosclerotic plaque. It was quite thickened and went far distally as well. We had to further our dissection distally. Once this was accomplished we then cleared out all loose debris. It was irrigated out thoroughly. We then anastomosed a xenosure patch with a 6 0 Prolene. This was done in a circumferential manner. Of note we nearly had to use the entire length of the patch. Once this was accomplished we flushed clear. Prior to closure shunt was removed. We then closed off the opening with a 6 0 Prolene. Once this was all done adequate hemostasis was achieved flow was reestablished external common and internal carotid arteries in that order. Once adequate hemostasis was achieved we placed a 7 flat [place] drain. Platysma layer was closed with a 2 0 Polysorb superficial layer with a 3-0 poly Sorb and finally skin with a running 4-0 Monocryl in a subcuticular manner. Once this was all accomplished sterile dressing was applied. Patient awoke neurologically intact and was returned to recovery with stable vitals. This note is constructed using voice recognition software. While every effort has been made to ensure accuracy, [employer] school assistant principal errors may have been included. Thank you for allowing me to participate in the care of your patient. Yours sincerely, Srikanth Zaidi MD, FACS, R.P.V.I.
[2021-09-05] MEDS: Acetaminophen 325 MG TABLET 650 MG PO (11:52)
[2021-09-05] MEDS: oxyCODONE HCl Immed Release 5 MG TABLET PO ×2 (11:52→19:52)
[2021-09-05] MEDS: 0.9 % Sodium Chloride 1,000 ML 80 ML IVCONT (14:52)
[2021-09-05] MEDS: ceFAZolin Sodium/Dextrose,Iso 2 GM/50 ML PIGGYBACK IV (14:54)
[2021-09-05] MEDS: 0.9 % Sodium Chloride Flush 3 ML SYRINGE IVFLUSH (17:03)
--- NOTE | 2021-09-05 17:03 | PM.CCHP ---
History of Present Illness Date of Service: 09/05/21 Attending physician on admission: Srikanth Zaidi Chief Complaint: Right carotid endarterectomy Mr. Alejandre is admitted to the ICU this afternoon after elective right carotid endarterectomy in the OR this morning by Dr. Zaidi. The patient is a 61-year-old male with past medical history of diabetes, hypertension, hyperlipidemia and former tobacco use.? He had a prior right-sided stroke with some residual left-sided weakness.? Workup showed 80% right carotid stenosis. Risk stratification workup included an exercise stress test.? He had some chest pressure with some ST segment depression during recovery, which resolved to baseline.? Exercise nuclear study was positive with inferolateral ischemia and possible inferior ischemia, with an ejection fraction of 68%.? He therefore underwent cardiac catheterization which showed a 70% mid LAD lesion, a 95% mid OM1 lesion, a 70% mid OM2 lesion, and a 40% mid RCA lesion.? No interventions were performed.? The patient has no limiting anginal symptoms.? Normal thermic.? No cranial nerve or peripheral motor deficits.? Minimal blood staining on his right neck dressing.? Normal speech, able to say clear ?E?. Intraop surgical and anesthetic course were unremarkable. ?At the end of surgery, the patient was extubated and taken to PACU.? PACU course was unremarkable and the patient was admitted to ICU for postop monitoring. On my exam, the patient is fully awake and alert, with no complaints.? Heart rate 57, sinus rhythm.? Blood pressure 152/65.? He is breathing easy with sat of 98%. LABORATORY DATA from preop this morning is notable for BUN/creatinine 29/1.2 (baseline about 32/1.4). IMPRESSION:? 61-year-old male with past medical history of DM, HTN, HLD and smoking.? S/P uncomplicated right carotid endarterectomy.? Admitted to ICU for postop vascular, hemodynamic, and respiratory monitoring. Now doing well.? Follow-up per Dr. Zaidi. [facility] Past Medical History Medical History Carotid stenosis Diabetes Elevated cholesterol Gout History of CVA (cerebrovascular accident) HTN (hypertension) Left eye symptoms Migraines Peripheral neuropathy Positive cardiac stress test Family History Family History Father No problems noted. Mother Heart disease Surgical History Surgical History History of ankle surgery Hx of bilateral hip replacements Hx of colonoscopy Social History Social History Household Members: Spouse Housing: Other Housing Other:: mobil home Are you a primary career technical supervisor to a significant other at home: No Do you presently have visiting nurse or other home services: No 75 years or older and lives alone: No Alcohol intake: never Patient Tobacco Use Status: Former Tobacco user Quit Date: 6 years ago Tobacco use type: Cigarette Cigarette Packs Per Day: 3 Cigarettes Per Day: 60.0 Years Smoked: 45 e-Cigarette/Vaping Use: Former Use Second Hand Smoke Exposure: Yes Substance Use Type: Marijuana Meds Allergies Allergy/AdvReac Type Severity Reaction Status Date / Time No Known Allergies Allergy Verified 09/05/21 16:52 Active Medications: Current Medications Acetaminophen (Acetaminophen 325 Mg Tablet) 650 mg PO Q6H PRN PRN Reason: Pain, Mild (Pain Scale 1-3) Last Admin: 09/05/21 11:52 Dose: 650 mg Allopurinol (Allopurinol 100 Mg Tablet) 100 mg PO DAILY [facility] Amlodipine Besylate (Amlodipine Besylate 5 Mg Tablet) 5 mg PO DAILY [facility]; Protocol Aspirin (Aspirin Enteric Coated 81 Mg Tablet.Dr) 81 mg PO DAILY [facility] Atorvastatin Calcium (Atorvastatin Calcium 40 Mg Tablet) 40 mg PO BEDTIME [facility] Fentanyl (Fentanyl Citrate/Pf 100 Mcg/2 Ml Vial) 25 mcg IVPUSH Q5M PRN; Protocol PRN Reason: Pain, Moderate (Pain Scale 4-6 Gabapentin (Gabapentin 300 Mg Capsule) 600 mg PO BID [facility] Glipizide (Glipizide 10 Mg Tablet) 10 mg PO BID [facility] Hydrochlorothiazide (Hydrochlorothiazide 25 Mg Tablet) 25 mg PO DAILY [facility]; Protocol Hydromorphone HCl (Hydromorphone Hcl 0.5 Mg/0.5 Ml Syringe) 0.25 mg IVPUSH Q5M PRN; Protocol PRN Reason: Pain, Severe (Pain Scale 7-10) Lactated Ringer's (Lr) 1,000 mls @ 100 mls/hr IVCONT .Q10H LISA Last Admin: 09/05/21 06:52 Dose: 100 mls/hr Sodium Chloride (Ns) 1,000 mls @ 80 mls/hr IVCONT .[id number] [facility] Last Admin: 09/05/21 16:55 Dose: Not Given Lisinopril (Lisinopril 5 Mg Tablet) 5 mg PO DAILY [facility]; Protocol Metformin HCl (Metformin Hcl 1,000 Mg Tablet) 1,000 mg PO BID [facility] Metoprolol Succinate (Metoprolol Succinate Er 25 Mg Tab.Er.24h) 25 mg PO DAILY [facility]; Protocol Morphine Sulfate (Morphine Sulfate 2 Mg/Ml Cartridge) 2 mg IVPUSH Q4H PRN; Protocol PRN Reason: Pain, Severe (Pain Scale 7-10) Ondansetron HCl (Ondansetron Hcl 4 Mg/2 Ml Vial) 4 mg IVPUSH ONCE PRN PRN Reason: Nausea and Vomiting Ondansetron HCl (Ondansetron Hcl 4 Mg/2 Ml Vial) 4 mg IVPUSH Q8H PRN PRN Reason: Nausea and Vomiting Oxycodone HCl (Oxycodone Hcl Immed Release 5 Mg Tablet) 5 mg PO Q4H PRN PRN Reason: Pain, Moderate (Pain Scale 4-6 Last Admin: 09/05/21 11:52 Dose: 5 mg Sitagliptin Phosphate (Sitagliptin Phosphate 100 Mg Tablet) 100 mg PO DAILY [facility] Sodium Chloride (0.9 % Sodium Chloride Flush 3 Ml Syringe) 3 ml IVFLUSH QSHIFT [facility] Home Medications Medication Instructions Recorded Confirmed Last Taken Type albuterol sulfate 90 mcg/actuation 2 puff PO QID PRN Shortness Of 06/28/21 08/31/21 Unknown History aerosol inhaler Breath Or Wheezing allopurinol 100 mg tablet 100 mg PO DAILY 06/28/21 08/31/21 Unknown History bromfenac 0.07 % eye drops 1 drp ophthalmic-Left QAM 06/28/21 08/31/21 Unknown History (Prolensa) gabapentin 300 mg capsule 600 mg PO BID 06/28/21 08/31/21 09/05/21 History glipizide 5 mg tablet 10 mg PO BID 06/28/21 08/31/21 Unknown History hydrochlorothiazide 25 mg tablet 25 mg PO DAILY 06/28/21 08/31/21 Unknown History metformin 500 mg tablet 1,000 mg PO BID 06/28/21 08/31/21 Unknown History sitagliptin 100 mg tablet (Januvia) 100 mg PO DAILY 06/28/21 08/31/21 Unknown History aspirin 81 mg tablet,delayed 81 mg PO DAILY 08/26/21 08/31/21 09/05/21 History release insulin detemir U-100 100 unit/mL 14 unit subcut DAILY 08/30/21 08/31/21 Unknown History (3 mL) subcutaneous pen (Levemir FlexTouch U-100 Insulin) Physical Exam Vital Signs: Vital Signs: Last Vital Signs Temp 98.8 F 09/05/21 16:00 Pulse 60 09/05/21 16:00 Resp 17 09/05/21 16:00 BP 138/55 L 09/05/21 16:00 Pulse Ox 98 09/05/21 16:00 O2 Del Method 09/05/21 16:00 O2 Flow Rate 2 09/05/21 16:00 BMI result Body Mass Index 30.7 Results Labs CBC and Chem 7: 09/05/21 06:56 09/05/21 06:56 Labs: Laboratory Results - last 24 hr 09/05/21 09/05/21 09/05/21 06:14 06:47 06:56 MCV 94.0 MCH 30.9 MCHC 32.8 RDW 13.0 Plt Count 283 MPV 9.7 Absolute Nucleated RBC 0.000 Nucleated RBC % (auto) 0.0 PT INR APTT Anion Gap Estim Creat Clear Calc Estimated GFR POC Glucose 115 Random Glucose Calcium COVID-19 (MIRIAM) Negative COVID-19 Clin Com See Note Blood Type Antibody Screen 09/05/21 09/05/21 09/05/21 06:56 06:56 06:56 MCV MCH MCHC RDW Plt Count MPV Absolute Nucleated RBC Nucleated RBC % (auto) PT 9.8 L INR 0.9 APTT 30.5 Anion Gap 13 Estim Creat Clear Calc 62.2 Estimated GFR 58 POC Glucose Random Glucose 131 H D Calcium 9.1 COVID-19 (MIRIAM) COVID-19 Clin Com Blood Type A Positive Antibody Screen NEGATIVE
[2021-09-05] MEDS: Morphine Sulfate 2 MG/ML CARTRIDGE IVPUSH (17:10)
--- NOTE | 2021-09-05 18:59 | PC.NURSE ---
1700-updated and discussed medications with dr. freeman in regards to blood pressure. Dr was going to review medications.
[2021-09-05] MEDS: Atorvastatin Calcium 40 MG TABLET PO (21:00)
[2021-09-05] MEDS: metFORMIN HCl 1,000 MG TABLET 1000 MG PO (21:00)
[2021-09-05] MEDS: Gabapentin 300 MG CAPSULE 600 MG PO (21:00)
[2021-09-05] MEDS: glipiZIDE 10 MG TABLET PO (21:00)
[2021-09-06] VITALS (13 sets, daily range): BP systolic 142–162; BP diastolic 61–82; PULSE 54–73; RESP 11–19; TEMP 36.6; O2SAT 93–100; BMI 33.3
[2021-09-06] MEDS: 0.9 % Sodium Chloride Flush 3 ML SYRINGE IVFLUSH ×2 (00:35→08:08)
[2021-09-06] MEDS: Lactated Ringers 1,000 ML 100 ML IVCONT (02:00)
[2021-09-06] MEDS: 0.9 % Sodium Chloride 1,000 ML 80 ML IVCONT (02:14)
[2021-09-06] MEDS: oxyCODONE HCl Immed Release 5 MG TABLET PO (05:03)
[2021-09-06 05:48] LABS: MANUAL DIFF FLAG NO
[2021-09-06 05:50] LABS: Basophils Percent Auto 0.2 % (0-2); Eosinophils Absolute Auto 0.2 X10*3/uL (0.0-0.4); Eosinophils Percent Auto 1.2 % (0-4); Hematocrit 36.3 % (42.0-52.0); Hemoglobin 11.9 g/dl (14.0-18.0); Imm Gran Abs Auto 0.07 X10*3/uL (0.00-0.03); Imm Gran Pct Auto 0.5 % (0.0-0.4); Lymphocytes Absolute Auto 2.1 X10*3/uL (1.2-4.9); Lymphocytes Percent Auto 14.4 % (20-40); Mean Corpuscular HGB Conc 32.8 g/dl (31.0-36.0); Mean Corpuscular Hemoglobin 30.7 pg (27.0-33.0); Mean Corpuscular Volume 93.6 fL (80.0-98.0); Mean Platelet Volume 9.9 fL (9.4-12.4); Monocytes Absolute Auto 1.1 X10*3/uL (0.1-1.2); Monocytes Percent Auto 7.5 % (2-11); Neutrophils Absolute Auto 11.1 x10*3/uL (2.0-8.3); Neutrophils Percent Auto 76.2 % (45-73); Platelet Count 287 X10*3/uL (160-400); Red Blood Count 3.88 X10*6/uL (4.60-5.80); Red Cell Distribution Width 13.2 % (11.0-16.0); White Blood Count 14.6 X10*3/uL (4.8-10.8)
[2021-09-06 06:12] LABS: Anion Gap 12 (12-20); Blood Urea Nitrogen 21 mg/dL (9-16); Calcium 8.3 mg/dL (8.4-10.2); Carbon Dioxide 20 mmol/L (22-29); Chloride 110 mmol/L (96-108); Creatinine Clr Calc Pharmacy 91.5; Estimated Glomerular Filt Rate > 60; Glucose Random 98 mg/dL (60-115); Potassium 4.8 mmol/L (3.3-5.1); Sodium 137 mmol/L (135-145)
[2021-09-06] MEDS: Morphine Sulfate 2 MG/ML CARTRIDGE IVPUSH (06:27)
--- NOTE | 2021-09-06 07:50 | PC.NURSE ---
0730-art line removed per order. catheter intact, and pressure held for 5 min. No bleeding noted.
[2021-09-06 07:53] LABS: Glucose, Whole Blood 91 mg/dL (60-115)
--- NOTE | 2021-09-06 07:58 | PC.NURSE ---
0755-loaiza cath removed per order.
[2021-09-06] MEDS: Gabapentin 300 MG CAPSULE 600 MG PO (08:07)
[2021-09-06] MEDS: SITagliptin Phosphate 100 MG TABLET PO (08:07)
[2021-09-06] MEDS: lisinopriL 5 MG TABLET PO (08:07)
[2021-09-06] MEDS: Aspirin Enteric Coated 81 MG TABLET.DR PO (08:07)
[2021-09-06] MEDS: Metoprolol Succinate ER 25 MG TAB.ER.24H PO (08:08)
[2021-09-06] MEDS: allopurinoL 100 MG TABLET PO (08:08)
[2021-09-06] MEDS: hydroCHLOROthiazide 25 MG TABLET PO (08:08)
[2021-09-06] MEDS: amLODIPine Besylate 5 MG TABLET PO (08:08)
[2021-09-06] MEDS: glipiZIDE 10 MG TABLET PO (08:08)
[2021-09-06] MEDS: metFORMIN HCl 1,000 MG TABLET 1000 MG PO (08:08)
--- NOTE | 2021-09-06 10:02 | HO.POSTANES ---
Post Anesthesia Evaluation Post Anesthesia Evaluation Vital Signs: Vital Signs Temp Pulse Resp BP Pulse Ox O2 Del Method O2 Flow Rate 09/06/21 08:07 14 09/06/21 08:06 Room Air 09/06/21 09:00 73 16 149/64 H 96 Nasal Cannula 2 09/06/21 08:00 67 16 93 Nasal Cannula 3 09/06/21 07:00 60 15 150/61 H 100 Nasal Cannula 2 09/06/21 06:00 56 11 L 159/66 H 98 Room Air 09/06/21 04:57 97.8 F 58 15 143/62 H 100 Room Air 09/06/21 03:53 54 15 159/66 H 99 Room Air 09/06/21 03:00 61 14 157/69 H 100 Room Air 09/06/21 02:00 54 13 150/82 H 99 Room Air 09/06/21 00:59 68 13 162/74 H 100 Room Air 09/05/21 23:55 97.7 F 57 14 122/50 L 97 Room Air 09/05/21 23:00 60 13 125/50 L 98 Room Air Anesthesia: General Endotracheal-GETA Mental Status: Awake Pain Control: Satisfactory Nausea/Vomiting: None Hydration: Adequate Anesthesia-Related Issues: No Anes. Related Issues
--- NOTE | 2021-09-06 11:50 | MHC.CM.PN ---
Met with pt to discuss d/c planning needs; pt is independent with all care needs, works, drives and has no DME or services. HCP is at home listing his and son: copy requested. Vax booster: No services anticipated: pt's spouse to transport home.
--- NOTE | 2021-09-06 11:54 | PM.DS ---
DS: Providers Provider Date of Service: 09/06/21 Date of admission: 09/05/21 06:09 Primary care physician: Domo Molina MD DS: Diagnosis Discharge Diagnosis (1) Carotid stenosis, right: Status: Acute DS: Summary Hospital Course Hospital Course: 61-year-old gentleman with a prior history of right carotid stenosis and stroke. He had undergone preoperative cardiac risk stratification including cardiac catheterization. He now presented for elective carotid endarterectomy. He underwent right carotid endarterectomy on 09/05/2021. He had no events or issues postoperatively. He was observed in our ICU overnight. Postop day 1 his A-line, Escalera, and JEFFREY drain were removed. Blood pressure appear to be stable and was subsequently discharged home. Time Spent with Patient Time attestation: Total time spent providing and/or coordinating discharge services: Discharge coordination time: Greater than 30 minutes Quality: Safe Use of Opioids Does Pt have an Active Cancer Diagnosis on the Problem List?: No Quality: Stroke Does the patient have a stroke diagnosis?: No Physical Exam Vital Signs: Vital Signs: Last Vital Signs Temp 97.8 F 09/06/21 04:57 Pulse 65 09/06/21 11:00 Resp 13 09/06/21 11:00 BP 147/66 H 09/06/21 11:00 Pulse Ox 96 09/06/21 11:00 O2 Del Method 09/06/21 11:00 O2 Flow Rate 2 09/06/21 11:00 BMI result Body Mass Index 33.3 Const: General: cooperative, healthy appearing and no acute distress Orientation/consciousness: oriented to person, oriented to place and oriented to time HEENT: Head: Yes normal to inspection Neck: Other: Right neck incision healing well. Minimal hematoma Carotids: no bruits Chest: Chest palpation & inspection: normal inspection of the chest Resp: Effort & Inspection: normal respiratory effort and able to speak in complete sentences Auscultation: clear to auscultation bilaterally Cardio: Rate: regular rate Heart sounds: S1 normal heart sound present and S2 normal heart sound present GI: Inspection: Yes normal to inspection Skin: General skin exam: no rashes or lesions noted Wounds: no wounds Neuro: General: oriented to person, oriented to place, oriented to time and CN's II-XI intact bilaterally Extrem: General: Yes normal to inspection, Yes full ROM and Yes no clubbing, cyanosis or edema Psych: Appearance: grossly normal and well kempt Speech and movement: Normal speech and movement present Affect: normal affect DS: Data Data Completed and Pending Pending studies at discharge: Pending at discharge 09/05/21 09:07 Surgical [PTH] Routine Labs on day of discharge: Laboratory Results - last 24 hr 09/06/21 09/06/21 09/06/21 05:21 05:36 07:49 WBC 14.6 H RBC 3.88 L Hgb 11.9 L Hct 36.3 L MCV 93.6 MCH 30.7 MCHC 32.8 RDW 13.2 Plt Count 287 MPV 9.9 Immature Gran % (Auto) 0.5 H Neut % (Auto) 76.2 H Lymph % (Auto) 14.4 L [place] % (Auto) 7.5 Eos % (Auto) 1.2 Baso % (Auto) 0.2 Lymph # (Auto) 2.1 [place] # (Auto) 1.1 Eos # (Auto) 0.2 Baso # (Auto) 0.0 Abs Immat Gran (auto) 0.07 H Absolute Neuts (auto) 11.1 H Absolute Nucleated RBC 0.000 Nucleated RBC % (auto) 0.0 Sodium 137 Potassium 4.8 Chloride 110 H Carbon Dioxide 20 L Anion Gap 12 BUN 21 H Creatinine 0.85 Estim Creat Clear Calc 91.5 Estimated GFR > 60 POC Glucose 91 Random Glucose 98 Calcium 8.3 L D Discharge Plan Discharge Patient Disposition: Home, Self-Care Discharge Diagnosis: Status post right carotid endarterectomy Referrals: Domo Molina MD [Primary Care Provider] - 1 Week Discharge Medications: New oxycodone-acetaminophen [Percocet] 5-325 mg tablet 1 tab PO Q8H PRN (Reason: pain) Qty: 10 0RF Rx Instructions: Partial Fill upon patient request. Continued amlodipine 5 mg tablet 5 mg PO DAILY Qty: 30 5RF lisinopril 5 mg tablet 5 mg PO DAILY Qty: 90 3RF aspirin 81 mg tablet,delayed release (DR/EC) 81 mg PO DAILY atorvastatin 40 mg tablet 40 mg PO BEDTIME Qty: 90 1RF metoprolol succinate 25 mg tablet extended release 24 hr 25 mg PO DAILY Qty: 90 1RF Levemir FlexTouch U-100 Insuln 100 unit/mL (3 mL) insulin pen 14 unit subcut DAILY glipizide 5 mg tablet 10 mg PO BID metformin 500 mg tablet 1,000 mg PO BID gabapentin 300 mg capsule 600 mg PO BID allopurinol 100 mg tablet 100 mg PO DAILY Prolensa 0.07 % drops 1 drp ophthalmic-Left QAM albuterol sulfate 90 mcg/actuation HFA aerosol inhaler 2 puff PO QID PRN (Reason: Shortness Of Breath Or Wheezing) Januvia 100 mg tablet 100 mg PO DAILY hydrochlorothiazide 25 mg tablet 25 mg PO DAILY Discharge Orders: Discharge Order (Routine); Ordered 09/06/21 Ordered By: Srikanth Zaidi Diet: Advance to usual diet Activity on Discharge: As tolerated Stand Alone Forms: Patient Portal Discharge page Care Plan Goals: return to prior function. Surveillance follow-up of carotids Health Concerns: carotid stenosis Plan of Treatment: surveillance follow-up of carotids Assessment: status post carotid surgery
--- NOTE | 2021-09-06 12:40 | PC.NURSE ---
3283-Dr. Zaidi removed surgical drsg and JEFFREY drain. Pt tolerated well. 2x2 applied over where Jeffrey site
--- NOTE | 2021-09-06 12:52 | PC.NURSE ---
1245-IV x2 removed. catheters intact. site asymptomatic. pt tolerated well
--- NOTE | 2021-09-06 12:57 | PC.NURSE ---
1250-discharge information discussed with patient. instructions given to patient and questions answered.
--- NOTE | 2021-09-06 13:10 | PC.NURSE ---
1306-pt discharged via wheelchair. pt's daughter at hospital to potato picker pt
== END 2021-09-06 13:12 | disposition home or self-care (01) | DRG 39 ==
LOC: HO.SSSA 14:45 → HO.EDOVER 14:49 → HO.ICU 14:51
PROVIDERS: Admitting Provider Surgery Vascular Surgery; PCP Internal Medicine; Visit Provider Surgery Vascular Surgery
PROC: 03CM0ZZ Extirpation of Matter from Right External Carotid Artery, Open Approach (ICD-10-PCS; CPT 35301; principal; 2021-09-05 07:30)
DX: I65.21 Occlusion and stenosis of right carotid artery (principal); M10.9 Gout, unspecified; E11.9 Type 2 diabetes mellitus without complications; G43.909 Migraine, unspecified, not intractable, without status migrainosus; Z86.73 Personal history of transient ischemic attack (TIA), and cerebral infarction without residual deficits; Z96.643 Presence of artificial hip joint, bilateral; Z87.891 Personal history of nicotine dependence; Z79.82 Long term (current) use of aspirin; Z79.4 Long term (current) use of insulin; Z79.84 Long term (current) use of oral hypoglycemic drugs; Z79.899 Other long term (current) drug therapy
CPT/HCPCS: 36415; 80048; 82947; 85025; 85027; 85610; 85730; 86850; 86900; 86901; 87635; 88304; 88311; C1768; J0690; J1170; J2250; J2270; J2370; J2405; J2795; J3010

== ENCOUNTER → 2021-09-20 10:13 | Outpatient (BNVA) | payer OTHER, SELFPAY | PROVIDERS: PCP Internal Medicine; Visit Provider Surgery Vascular Surgery | DX: I65.21 Occlusion and stenosis of right carotid artery (principal); I25.10 Atherosclerotic heart disease of native coronary artery without angina pectoris; Z98.890 Other specified postprocedural states | CPT/HCPCS: 99212 ==

== ENCOUNTER 2021-12-15 09:53 | Outpatient (REF) | payer OTHER, SELFPAY ==
--- NOTE | ~2021-12-15 | US_ITS ---
EXAMINATION: US EXTRACRANIAL CAROTID DUPLEX, BILATERAL CLINICAL INFORMATION: Right carotid stenosis COMPARISON: 05/12/2021 TECHNIQUE: Real-time ultrasound and Doppler techniques (integrating B-mode 2-D vascular images, Doppler spectral analysis and color-flow Doppler imaging) were utilized to interrogate the extracranial carotid arteries, the vertebral arteries and proximal subclavian arteries bilaterally. The degree of stenosis is determined by criteria similar to NASCET. FINDINGS: Right Side: 1. There is mild atherosclerotic plaque seen in the bifurcation/proximal ICA region. 2. The common carotid artery PSV proximally is 119 cm/s and distally 146 cm/s. 3. The proximal internal carotid artery velocities are 85 cm/s systolic and 9 cm/s diastolic. These velocities have normalized when compared to the prior study when they were previously 224/49 cm/s. 4. The proximal external carotid artery PSV is 138 cm/s. 5. The vertebral artery shows antegrade flow. 6. The subclavian artery waveforms are normal. Left Side: 1. There is mild atherosclerotic plaque seen in the bifurcation/proximal ICA region. 2. The common carotid artery appears to contain echogenic thrombus. The PSV proximally is 126 cm/s and distally 322 cm/s. 3. The proximal internal carotid artery velocities are 135 cm/s systolic and 29 cm/s diastolic. Velocities have normalized since the prior study when they were 159/28 cm/s 4. The proximal external carotid artery PSV is 218 cm/s. 5. The vertebral artery shows antegrade flow. 6. The subclavian artery waveforms are normal. US/US carotid duplex BI IMPRESSION: 1. RIGHT: Minimal, non-hemodynamically significant stenosis of the proximal right internal carotid artery corresponding to a 0-49% stenosis by velocity criteria. This appears improved since prior. 2. LEFT: Thrombus is present in the left common carotid artery with increased velocities consistent with stenosis in this region. There is no evidence of a hemodynamically significant left ICA stenosis with a 0-49% stenosis present here by velocity criteria. The ICA findings appear improved since the prior study. This critical result was discussed with Dr. Terri Stahl at 12:15 PM on the day of the exam and it was ascertained that the content and urgency of the report was understood at the time of direct communication.
== END 2021-12-15 09:54 | disposition home or self-care (01) ==
LOC: HO.US 09:53
PROVIDERS: Visit Provider Surgery Vascular Surgery
DX: I65.21 Occlusion and stenosis of right carotid artery (principal)
CPT/HCPCS: 93880

== ENCOUNTER 2021-12-21 08:00 | Outpatient (REF) | payer OTHER, MEDICAID, SELFPAY ==
--- NOTE | ~2021-12-21 | CT_ITS ---
EXAMINATION: CT ANGIOGRAM NECK CLINICAL INFORMATION: Bilateral carotid artery stenosis. COMPARISON: Carotid ultrasound from 12/15/2021. TECHNIQUE: Initial noncontrast binder stripper hand imaging of the neck was performed. Test bolus sequences followed by intravenous administration 70 mL of Omnipaque 350. Helical imaging was performed in the axial plane from the aortic arch to the skull base. The data was processed at the medical technologist generalist's workstation for generation of MIP sequences. Angled MIPs and volume rendered reformatted images were also generated at an offline 3D workstation. Stenoses are assessed in accordance with NASCET criteria unless otherwise indicated. This CT examination was performed using dose optimization techniques as appropriate, variously including the following: *Automated exposure control. *Adjustment of mA and/or kV according to patient size (this includes techniques or standardized protocols for targeted exams where dose is matched to indication/reason for exam; i.e. extremities or head). *Use of iterative reconstruction technique. DLP: 468 mGy-cm FINDINGS: CT Neck: The thyroid gland and remaining cervical soft tissues are within normal limits. Congenital fusion of the C2-C3 vertebrae. Straightening of the normal cervical lordosis. Moderate degenerative disc disease from C3-C7. Moderate mucosal thickening of the paranasal sinuses. Chronic appearing depression of the left lamina papyracea. Multifocal odontogenic enamel erosions. Periapical lucencies associated with the maxillary right sided premolars/molars and and mandibular left-sided canine. CT Upper Chest: Mild right apical pleural scarring. Otherwise, the visualized lung apices and upper mediastinum are within normal limits. Neck CTA: Aortic Arch: Normal contour and caliber with moderate calcific atherosclerotic disease. Classic 3 vessel branching pattern of the aortic arch. Great Vessel Origins: No significant stenosis of the branch origins. Eccentric lipid rich atheromatous disease causes less than 50% stenosis of the proximal left subclavian artery. Right Common Carotid Artery: Circumferential lipid rich atheromatous disease leads to 40% stenosis of the mid right common carotid artery. No additional focal stenosis or occlusion. Cervical Right Internal Carotid Artery: Mild calcific atherosclerotic disease of the carotid bulb and proximal internal carotid artery without flow-limiting stenosis. Left Common Carotid Artery: Eccentric lipid rich atheromatous disease leads leads to 70% stenosis of the mid left common carotid artery. No additional focal stenosis or occlusion. Cervical Left Internal Carotid Artery: Heavy calcific atherosclerotic disease of the carotid bulb and proximal internal carotid artery causing less than 50% stenosis. Cervical Right Vertebral Artery: Co-dominant. Calcific atherosclerotic disease causes mild stenosis of the origin. Otherwise, normal opacification without focal stenosis or occlusion. Cervical Left Vertebral Artery: Co-dominant. Normal opacification without focal stenosis or occlusion. CT/CT angio neck IMPRESSION: 1. Eccentric lipid rich atheromatous disease leads to 70% stenosis of the mid left common carotid artery. Heavy calcific atherosclerotic disease of the left carotid bulb and proximal left ICA causes less than 50% stenosis. 2. Concentric lipid rich atheromatous disease leads to 40% stenosis of the mid right common carotid artery. 3. Calcific atherosclerotic disease causes less than 50% stenosis of the proximal left subclavian artery. 4. Moderate multilevel degenerative spondyloarthropathy of the cervical spine. 5. Moderate multifocal odontogenic disease.
[2021-12-21] MEDS: iohexoL 350 MG/ML 100 ML INFUS..BTL IV (08:54)
[2021-12-21 13:47] LABS: Creatinine POC 1.1 mg/dL (0.5-1.4); GFR POC > 60
== END 2021-12-21 08:01 | disposition home or self-care (01) ==
LOC: HO.CT 08:00
PROVIDERS: Visit Provider Surgery Vascular Surgery
DX: I65.23 Occlusion and stenosis of bilateral carotid arteries (principal)
CPT/HCPCS: 70498; 82565; Q9967

== ENCOUNTER → 2021-12-22 14:41 | Outpatient (BNVA) | payer OTHER, SELFPAY | PROVIDERS: PCP Internal Medicine; Visit Provider Surgery Vascular Surgery | DX: I65.21 Occlusion and stenosis of right carotid artery (principal); E11.42 Type 2 diabetes mellitus with diabetic polyneuropathy; Z87.891 Personal history of nicotine dependence; Z77.22 Contact with and (suspected) exposure to environmental tobacco smoke (acute) (chronic); Z79.82 Long term (current) use of aspirin; Z79.899 Other long term (current) drug therapy | CPT/HCPCS: 99212 ==

== ENCOUNTER 2022-02-04 16:53 | Inpatient (IN) | payer OTHER, MEDICAID, SELFPAY ==
--- NOTE | ~2022-02-04 | CT_ITS ---
EXAMINATION: CT CHEST WITHOUT CONTRAST CLINICAL INFORMATION: Pneumonia COMPARISON: Chest x-ray 02/04/2022 TECHNIQUE: Multidetector volumetric CT imaging of the chest was done. Axial MIP volume rendering provided. Sagittal and coronal reformatted images were obtained. This CT examination was performed using dose optimization techniques as appropriate, variously including the following: *Automated exposure control *Adjustment of mA and/or kV according to patient size (this includes techniques or standardized protocols for targeted exams where dose is matched to indication/reason for exam; i.e. extremities or head) *Use of iterative reconstruction technique DLP: 296 mGy-cm FINDINGS: SOLAR MAINTENANCE TECHNICIAN: Well-inflated lungs. LUNGS: The lungs are expanded with patchy airspace opacity seen in the right upper lobe left upper lobe bilateral lower lobes consistent multi lobar infiltrates MEDIASTINUM: The thyroid lobes are symmetric and normal. The central trachea and bronchi are widely patent. The heart size and the great vessels are normal caliber. There is no pericardial effusion. There is a small hiatal hernia. A benign-appearing precarinal lymph node is seen measuring 7 mm. CORONARY ARTERY CALCIFICATION: There is mild coronary artery calcifications. PLEURA: There is no pleural effusion. No pleural mass or thickening. AXILLA: No abnormal axillary lymph nodes. The chest wall is unremarkable. UPPER ABDOMEN: Visualized liver, spleen, pancreas and bilateral adrenal glands are unremarkable. OSSEOUS STRUCTURES: No aggressive lytic or sclerotic process seen. There is moderate ventral spondylosis mid and lower dorsal spine. CT/CT chest wo IV con IMPRESSION: 1. Multi lobar bilateral infiltrates. 2. Reactive mediastinal lymph nodes. 3. Small hiatal hernia. Fleischner guidelines were followed.
--- NOTE | ~2022-02-04 | XR_ITS ---
EXAMINATION: XR chest 2V CLINICAL INFORMATION: Shortness of breath COMPARISON: 2013 TECHNIQUE: XR chest 2V Lungs and Kassandra: Newly developed mild interstitial opacification right upper lobe and left parahilar region concerning for interstitial pneumonitis, no dense lobar consolidation lobar pneumonia. Pleura: Normal. Costophrenic angles are sharp. No pneumothorax. Heart: The heart is normal in size. Mediastinum: The mediastinum is within normal limits.. Bones: Skeletal structures included are normal for patient's age. XR/XR chest 2V IMPRESSION: Newly developed mild interstitial opacification right upper lobe and left parahilar region concerning for interstitial pneumonitis. No dense lobar consolidation or pleural effusion.
[2022-02-04 17:07] VITALS: BP 146/75; PULSE 110; RESP 18; TEMP 37.7; O2SAT 94; BMI 31.6
--- NOTE | 2022-02-04 17:07 | ED.GENADULT ---
HPI - General Adult General Chief complaint: Dyspnea Stated complaint: Diff breathing Time Seen by Provider: 02/04/22 18:47 Source: patient Mode of arrival: ambulatory Limitations: no limitations Related Data Home Medications Medication Instructions Recorded Confirmed albuterol sulfate 90 mcg/actuation 2 puff PO QID PRN Shortness Of 06/28/21 02/05/22 aerosol inhaler Breath Or Wheezing bromfenac 0.07 % eye drops 1 drp ophthalmic (eye) DAILY 06/28/21 02/05/22 (Prolensa) gabapentin 300 mg capsule 300 mg PO QID 06/28/21 02/05/22 hydrochlorothiazide 25 mg tablet 25 mg PO DAILY 06/28/21 02/05/22 metformin 500 mg tablet 1,000 mg PO BID 06/28/21 02/05/22 sitagliptin phosphate 100 mg 100 mg PO DAILY 06/28/21 02/05/22 tablet (Januvia) insulin detemir U-100 100 unit/mL 14 unit subcut BEDTIME 08/30/21 02/05/22 (3 mL) subcutaneous pen (Levemir FlexTouch U-100 Insulin) atorvastatin 20 mg tablet 20 mg PO BEDTIME 12/22/21 02/05/22 cholecalciferol (vitamin D3) 50 50 mcg PO DAILY 02/05/22 02/05/22 mcg (2,000 unit) tablet (Vitamin D3) glipizide 10 mg tablet 10 mg PO BID 02/05/22 02/05/22 Previous Rx's Medication Instructions Recorded amlodipine 5 mg tablet 5 mg PO DAILY #30 tabs 08/03/21 metoprolol succinate 25 mg 25 mg PO DAILY #90 tabs 08/26/21 tablet,extended release 24 hr lisinopril 5 mg tablet 5 mg PO DAILY #90 tabs 08/31/21 Allergies Allergy/AdvReac Type Severity Reaction Status Date / Time No Known Allergies Allergy Verified 02/04/22 17:07 [facility] Past Medical History Medical History Carotid stenosis Diabetes Elevated cholesterol Gout History of CVA (cerebrovascular accident) HTN (hypertension) Left eye symptoms Migraines Peripheral neuropathy Positive cardiac stress test Surgical History H/O endarterectomy History of ankle surgery Hx of bilateral hip replacements Hx of colonoscopy Family History Family History Father No problems noted. Mother Heart disease Social History Social History Household Members: Spouse Housing: Other Housing Other:: mobil home Are you a primary foster care therapist to a significant other at home: No Do you presently have visiting nurse or other home services: No Alcohol intake: never Patient Tobacco Use Status: Former Tobacco user Quit Date: 6 years ago Tobacco use type: Cigarette Cigarette Packs Per Day: 3 Cigarettes Per Day: 60.0 Years Smoked: 45 Smoked in Last 30 Days: No e-Cigarette/Vaping Use: Former Use Second Hand Smoke Exposure: Yes Substance Use Type: Marijuana Advance Directives: No Advance Directives Information Provided: Yes service: No Current occupational status: employed Physical Exam ED Vital Signs: Vital Signs - 24 hr 02/04/22 17:07 Temperature 99.9 F Pulse Rate 110 H Respiratory Rate 18 Blood Pressure 146/75 H Pulse Oximetry 94 Oxygen Delivery Method Room Air BMI result Body Mass Index 31.6 Course Course Course Narrative: RME performed by Alie Munoz PA-C. Patient is a 61 year old male presenting to the emergency department with shortness of breath. Patient states that everyone around him was sick with the flu. Patient states that he went to an urgent care and was sent into the ER for low oxygen . Labs, COVID/Influenza/RSV and a chest XR ordered. Patinet placed back in the waiting room pending results and room availability. Patient was seen and admitted by Dr. Covarrubias who created and signed his own note. Medications Administered Generic Name Dose Route Start Last Admin Trade Name Freq PRN Reason Stop Dose Admin Acetaminophen 650 mg 02/04/22 20:37 02/05/22 13:06 Acetaminophen 325 Mg Tablet PO 650 mg Q6H PRN Administration Pain, Mild (Pain Scale 1-3) Doxycycline Monohydrate 100 mg 02/05/22 09:00 02/05/22 09:24 Doxycycline Monohydrate 100 Mg Capsule PO 100 mg Q12H LSIA Administration Enoxaparin Sodium 40 mg 02/04/22 22:00 02/04/22 23:19 Enoxaparin Sodium 40 Mg/0.4 Ml Syringe SUBCUT 40 mg Q24H LISA Administration Gabapentin 300 mg 02/05/22 13:00 02/05/22 13:01 Gabapentin 300 Mg Capsule PO 300 mg QID LISA Administration Sodium Chloride 1,000 mls @ 125 mls/hr 02/05/22 09:00 02/05/22 09:24 Ns IVCONT 125 mls/hr .Q8H LISA Administration Insulin Human Lispro 0 unit 02/05/22 07:30 02/05/22 13:41 Insulin Lispro 100 Unit/Ml 3 Ml Vial SUBCUT 2 unit QIDACHS LISA Administration Protocol Prednisone 40 mg 02/05/22 11:05 02/05/22 13:01 Prednisone 20 Mg Tablet PO 02/09/22 09:01 40 mg DAILY LISA Administration Sodium Chloride 3 ml 02/05/22 00:00 02/05/22 13:45 0.9 % Sodium Chloride Flush 3 Ml Syringe IVFLUSH Not Given QSHIFT LISA Discontinued Medications Generic Name Dose Route Start Last Admin Trade Name Freq PRN Reason Stop Dose Admin Sodium Chloride 1,000 mls @ 999 mls/hr 02/04/22 18:59 02/04/22 22:59 Ns IV 02/04/22 19:59 Infused .Q1H1M ONE Infusion Ceftriaxone Sodium 1 gm/ 50 mls @ 100 mls/hr 02/04/22 18:59 02/04/22 20:33 Sodium Chloride IV 02/04/22 19:28 Infused ONCE ONE Infusion Azithromycin 500 mg/ Sodium 250 mls @ 125 mls/hr 02/04/22 18:59 02/04/22 22:59 Chloride IV 02/04/22 20:58 Infused ONCE ONE Infusion Lactated Ringer's 1,000 mls @ 100 mls/hr 02/04/22 20:45 02/05/22 10:08 Lr IVCONT Infused .Q10H LISA Infusion Magnesium Sulfate 2 gm in 50 mls @ 25 mls/hr 02/04/22 22:16 02/05/22 00:15 Magnesium Sulfate/H2o IV 02/05/22 00:15 Infused ONCE ONE Infusion Medical Decision Making Lab Data Result Diagrams: 02/05/22 06:29 02/05/22 06:29 Labs: Lab Results 02/04/22 02/04/22 02/04/22 Range/Units 17:22 17:22 17:22 WBC 20.2 H (4.8-10.8) X10*3/uL RBC 4.33 L (4.60-5.80) X10*6/uL Hgb 13.2 L (14.0-18.0) g/dl Hct 40.4 L (42.0-52.0) % MCV 93.3 (80.0-98.0) fL MCH 30.5 (27.0-33.0) pg MCHC 32.7 (31.0-36.0) g/dl RDW 12.7 (11.0-16.0) % Plt Count 301 (160-400) X10*3/uL MPV 9.3 L (9.4-12.4) fL Immature Gran % (Auto) 1.1 H (0.0-0.4) % Neut % (Auto) 86.5 H (45-73) % Lymph % (Auto) 5.1 L (20-40) % [place] % (Auto) 7.1 (2-11) % Eos % (Auto) 0.0 (0-4) % Baso % (Auto) 0.2 (0-2) % Lymph # (Auto) 1.0 L (1.2-4.9) X10*3/uL [place] # (Auto) 1.4 H (0.1-1.2) X10*3/uL Eos # (Auto) 0.0 (0.0-0.4) X10*3/uL Baso # (Auto) 0.1 (0.0-0.2) X10*3/uL Abs Immat Gran (auto) 0.22 H (0.00-0.03) X10*3/uL Absolute Neuts (auto) 17.5 H (2.0-8.3) x10*3/uL Absolute Nucleated RBC 0.000 (0.0-0.012) X10*3/uL Nucleated RBC % (auto) 0.0 (0.0-0.2) /100WBC Sodium 133 L (135-145) mmol/L Potassium 4.6 (3.3-5.1) mmol/L Chloride 100 (96-108) mmol/L Carbon Dioxide 21 L (22-29) mmol/L Anion Gap 17 (12-20) BUN 41 H (9-16) mg/dL Creatinine 2.48 H (0.5-1.4) mg/dL Estim Creat Clear Calc 30.7 Estimated GFR 26 Random Glucose 276 H (60-115) mg/dL Lactic Acid (0.5-2.0) mmol/L Calcium 8.6 (8.4-10.2) mg/dL Magnesium 1.5 L (1.6-2.6) mg/dL Total Bilirubin 0.8 (0.0-1.0) mg/dL AST 16 (5-37) U/L ALT 15 (0-40) U/L Alkaline Phosphatase 65 (39-117) U/L Total Protein 7.2 (6.5-8.0) g/dL Albumin 3.9 (3.5-5.0) g/dL Influenza Type A (PCR) POSITIVE A (Negative) Influenza Type B (PCR) NEGATIVE (Negative) RSV RNA Qual (PCR) NEGATIVE (Negative) SARS-CoV-2 RNA (RT-PCR) NEGATIVE (Negative) 02/04/22 Range/Units 19:19 WBC (4.8-10.8) X10*3/uL RBC (4.60-5.80) X10*6/uL Hgb (14.0-18.0) g/dl Hct (42.0-52.0) % MCV (80.0-98.0) fL MCH (27.0-33.0) pg MCHC (31.0-36.0) g/dl RDW (11.0-16.0) % Plt Count (160-400) X10*3/uL MPV (9.4-12.4) fL Immature Gran % (Auto) (0.0-0.4) % Neut % (Auto) (45-73) % Lymph % (Auto) (20-40) % [place] % (Auto) (2-11) % Eos % (Auto) (0-4) % Baso % (Auto) (0-2) % Lymph # (Auto) (1.2-4.9) X10*3/uL [place] # (Auto) (0.1-1.2) X10*3/uL Eos # (Auto) (0.0-0.4) X10*3/uL Baso # (Auto) (0.0-0.2) X10*3/uL Abs Immat Gran (auto) (0.00-0.03) X10*3/uL Absolute Neuts (auto) (2.0-8.3) x10*3/uL Absolute Nucleated RBC (0.0-0.012) X10*3/uL Nucleated RBC % (auto) (0.0-0.2) /100WBC Sodium (135-145) mmol/L Potassium (3.3-5.1) mmol/L Chloride (96-108) mmol/L Carbon Dioxide (22-29) mmol/L Anion Gap (12-20) BUN (9-16) mg/dL Creatinine (0.5-1.4) mg/dL Estim Creat Clear Calc Estimated GFR Random Glucose (60-115) mg/dL Lactic Acid 2.0 (0.5-2.0) mmol/L Calcium (8.4-10.2) mg/dL Magnesium (1.6-2.6) mg/dL Total Bilirubin (0.0-1.0) mg/dL AST (5-37) U/L ALT (0-40) U/L Alkaline Phosphatase (39-117) U/L Total Protein (6.5-8.0) g/dL Albumin (3.5-5.0) g/dL Influenza Type A (PCR) (Negative) Influenza Type B (PCR) (Negative) RSV RNA Qual (PCR) (Negative) SARS-CoV-2 RNA (RT-PCR) (Negative) Discharge Plan Discharge Clinical Impression: Influenza A, Pneumonia Patient Disposition: Admitted As Inpatient
[2022-02-04 17:28] LABS: MANUAL DIFF FLAG NO
[2022-02-04 17:29] LABS: Basophils Absolute Auto 0.1 X10*3/uL (0.0-0.2); Basophils Percent Auto 0.2 % (0-2); Hematocrit 40.4 % (42.0-52.0); Hemoglobin 13.2 g/dl (14.0-18.0); Imm Gran Abs Auto 0.22 X10*3/uL (0.00-0.03); Imm Gran Pct Auto 1.1 % (0.0-0.4); Lymphocytes Percent Auto 5.1 % (20-40); Mean Corpuscular HGB Conc 32.7 g/dl (31.0-36.0); Mean Corpuscular Hemoglobin 30.5 pg (27.0-33.0); Mean Corpuscular Volume 93.3 fL (80.0-98.0); Mean Platelet Volume 9.3 fL (9.4-12.4); Monocytes Absolute Auto 1.4 X10*3/uL (0.1-1.2); Monocytes Percent Auto 7.1 % (2-11); Neutrophils Absolute Auto 17.5 x10*3/uL (2.0-8.3); Neutrophils Percent Auto 86.5 % (45-73); Platelet Count 301 X10*3/uL (160-400); Red Blood Count 4.33 X10*6/uL (4.60-5.80); Red Cell Distribution Width 12.7 % (11.0-16.0); White Blood Count 20.2 X10*3/uL (4.8-10.8)
[2022-02-04 17:45] LABS: Alanine Aminotransferase 15 U/L (0-40); Albumin Level 3.9 g/dL (3.5-5.0); Alkaline Phosphatase 65 U/L (39-117); Anion Gap 17 (12-20); Aspartate Amino Transferase 16 U/L (5-37); Bilirubin Total 0.8 mg/dL (0.0-1.0); Blood Urea Nitrogen 41 mg/dL (9-16); Calcium 8.6 mg/dL (8.4-10.2); Carbon Dioxide 21 mmol/L (22-29); Chloride 100 mmol/L (96-108); Creatinine Clr Calc Pharmacy 30.7; Estimated Glomerular Filt Rate 26; Glucose Random 276 mg/dL (60-115); Magnesium 1.5 mg/dL (1.6-2.6); Potassium 4.6 mmol/L (3.3-5.1); Sodium 133 mmol/L (135-145); Total Protein 7.2 g/dL (6.5-8.0)
[2022-02-04 18:04] LABS: Influenza A PCR POSITIVE (Negative); Influenza B PCR NEGATIVE (Negative); Resp Syncy Virus RNA Qual PCR NEGATIVE (Negative); SARS COV2 PCR INHOUSE NEGATIVE (Negative)
--- NOTE | 2022-02-04 19:01 | ED.URI ---
HPI - URI/Sore Throat General Chief Complaint: Dyspnea Stated Complaint: Diff breathing Time Seen by Provider: 02/04/22 18:47 Source: patient Mode of arrival: ambulatory Limitations: no limitations History of Present Illness HPI Narrative: Patient is 61 years old diabetic, hypertension came for cold symptoms cough congestion for last 3- 4 days. Patient's mother had influenza a last week and since then patient has been having cold symptoms which are getting worse now coughing lot of mucopurulent phlegm body aches especially for last 2 days feels short of breath and tired was saturating 89% at room air improved to 94% on 4 L Related Data Home Medications Medication Instructions Recorded Confirmed albuterol sulfate 90 mcg/actuation 2 puff PO QID PRN Shortness Of 06/28/21 09/05/21 aerosol inhaler Breath Or Wheezing allopurinol 100 mg tablet 100 mg PO DAILY 06/28/21 09/05/21 bromfenac 0.07 % eye drops 1 drp ophthalmic-Left QAM 06/28/21 09/05/21 (Prolensa) gabapentin 300 mg capsule 600 mg PO BID 06/28/21 09/05/21 glipizide 5 mg tablet 10 mg PO BID 06/28/21 09/05/21 hydrochlorothiazide 25 mg tablet 25 mg PO DAILY 06/28/21 08/31/21 metformin 500 mg tablet 1,000 mg PO BID 06/28/21 08/31/21 sitagliptin phosphate 100 mg 100 mg PO DAILY 06/28/21 08/31/21 tablet (Januvia) aspirin 81 mg tablet,delayed 81 mg PO DAILY 08/26/21 09/05/21 release insulin detemir U-100 100 unit/mL 14 unit subcut DAILY 08/30/21 08/31/21 (3 mL) subcutaneous pen (Levemir FlexTouch U-100 Insulin) atorvastatin 20 mg tablet 20 mg PO DAILY 12/22/21 Previous Rx's Medication Instructions Recorded amlodipine 5 mg tablet 5 mg PO DAILY #30 tabs 08/03/21 atorvastatin 40 mg tablet 40 mg PO BEDTIME #90 tabs 08/26/21 metoprolol succinate 25 mg 25 mg PO DAILY #90 tabs 08/26/21 tablet,extended release 24 hr lisinopril 5 mg tablet 5 mg PO DAILY #90 tabs 08/31/21 Allergies Allergy/AdvReac Type Severity Reaction Status Date / Time No Known Allergies Allergy Verified 02/04/22 17:07 Review of Systems Review of Systems: Yes all other systems are reviewed and are negative [facility] Past Medical History Medical History Carotid stenosis Diabetes Elevated cholesterol Gout History of CVA (cerebrovascular accident) HTN (hypertension) Left eye symptoms Migraines Peripheral neuropathy Positive cardiac stress test Surgical History H/O endarterectomy History of ankle surgery Hx of bilateral hip replacements Hx of colonoscopy Family History Family History Father No problems noted. Mother Heart disease Social History Social History Household Members: Spouse Housing: Other Housing Other:: mobil home Are you a primary healthcare insurance sales agent to a significant other at home: No Do you presently have visiting nurse or other home services: No Alcohol intake: never Patient Tobacco Use Status: Former Tobacco user Quit Date: 6 years ago Tobacco use type: Cigarette Cigarette Packs Per Day: 3 Cigarettes Per Day: 60.0 Years Smoked: 45 e-Cigarette/Vaping Use: Former Use Second Hand Smoke Exposure: Yes Substance Use Type: Marijuana Advance Directives: No Advance Directives Information Provided: Yes service: No Current occupational status: employed Physical Exam Vital Signs: Vital Signs: Last Vital Signs Temp 104.6 F H 02/04/22 23:24 Pulse 107 H 02/04/22 23:24 Resp 20 02/04/22 23:24 BP 117/63 02/04/22 23:24 Pulse Ox 91 L 02/04/22 23:24 O2 Del Method 02/04/22 23:24 O2 Flow Rate 4 02/04/22 23:24 BMI result Body Mass Index 31.6 Appearance: Alert. Oriented X3. No acute distress. Eyes: PERRLA, No Nystagmus ENT: Pharynx normal. Oral Mucosa moist Neck: Normal inspection. Neck supple. CVS: Normal heart rate and rhythm. Pulses normal. Respiratory: No respiratory distress. Equal air entry bilateral, bilateral crackles especially more on the right side lower lobes Abdomen: Soft and nontender. Bowel sounds are present, no mass palpable, no CVA tenderness Skin: Skin warm and dry. Normal skin color. Normal skin turgor. Extremities: No lower extremity edema. No calf tenderness Neuro: Oriented X 3. No motor deficit. No sensory deficit.No cerebellar signs , cranial nerves II-XII intact Medications Administered Generic Name Dose Route Start Last Admin Trade Name Freq PRN Reason Stop Dose Admin Acetaminophen 650 mg 02/04/22 20:37 02/04/22 22:50 Acetaminophen 325 Mg Tablet PO 650 mg Q6H PRN Administration Pain, Mild (Pain Scale 1-3) Enoxaparin Sodium 40 mg 02/04/22 22:00 02/04/22 23:19 Enoxaparin Sodium 40 Mg/0.4 Ml Syringe SUBCUT 40 mg Q24H LISA Administration Lactated Ringer's 1,000 mls @ 100 mls/hr 02/04/22 20:45 02/04/22 22:50 Lr IVCONT 100 mls/hr .Q10H LISA Administration Discontinued Medications Generic Name Dose Route Start Last Admin Trade Name Freq PRN Reason Stop Dose Admin Sodium Chloride 1,000 mls @ 999 mls/hr 02/04/22 18:59 02/04/22 22:59 Ns IV 02/04/22 19:59 Infused .Q1H1M ONE Infusion Ceftriaxone Sodium 1 gm/ 50 mls @ 100 mls/hr 02/04/22 18:59 02/04/22 20:33 Sodium Chloride IV 02/04/22 19:28 Infused ONCE ONE Infusion Azithromycin 500 mg/ Sodium 250 mls @ 125 mls/hr 02/04/22 18:59 02/04/22 22:59 Chloride IV 02/04/22 20:58 Infused ONCE ONE Infusion Magnesium Sulfate 2 gm in 50 mls @ 25 mls/hr 02/04/22 22:16 02/04/22 23:19 Magnesium Sulfate/H2o IV 02/05/22 00:15 25 mls/hr ONCE ONE Administration Medical Decision Making Medical Decision Making [facility] Narrative: 1900: Patient with influenza a lab workup showed SHELLEY with elevated creatinine to 2.48 and leukocytosis WBC of 20.2 K. will give patient IV hydration IV antibiotics check lactic acid, blood c/s will admit Patient meets the criteria for sepsis not in septic shock was given IV fluids and antibiotics focused exam for sepsis was done at 2230 Consult Healthcare Provider Management of the patient was discussed with: Hospitalist Lab Data MDM Lab Attestation statement: I reviewed the patient's lab results. Result Diagrams: 02/04/22 17:22 02/04/22 17:22 Labs: Lab Results 02/04/22 02/04/22 02/04/22 Range/Units 17:22 17:22 17:22 WBC 20.2 H (4.8-10.8) X10*3/uL RBC 4.33 L (4.60-5.80) X10*6/uL Hgb 13.2 L (14.0-18.0) g/dl Hct 40.4 L (42.0-52.0) % MCV 93.3 (80.0-98.0) fL MCH 30.5 (27.0-33.0) pg MCHC 32.7 (31.0-36.0) g/dl RDW 12.7 (11.0-16.0) % Plt Count 301 (160-400) X10*3/uL MPV 9.3 L (9.4-12.4) fL Immature Gran % (Auto) 1.1 H (0.0-0.4) % Neut % (Auto) 86.5 H (45-73) % Lymph % (Auto) 5.1 L (20-40) % [place] % (Auto) 7.1 (2-11) % Eos % (Auto) 0.0 (0-4) % Baso % (Auto) 0.2 (0-2) % Lymph # (Auto) 1.0 L (1.2-4.9) X10*3/uL [place] # (Auto) 1.4 H (0.1-1.2) X10*3/uL Eos # (Auto) 0.0 (0.0-0.4) X10*3/uL Baso # (Auto) 0.1 (0.0-0.2) X10*3/uL Abs Immat Gran (auto) 0.22 H (0.00-0.03) X10*3/uL Absolute Neuts (auto) 17.5 H (2.0-8.3) x10*3/uL Absolute Nucleated RBC 0.000 (0.0-0.012) X10*3/uL Nucleated RBC % (auto) 0.0 (0.0-0.2) /100WBC Sodium 133 L (135-145) mmol/L Potassium 4.6 (3.3-5.1) mmol/L Chloride 100 (96-108) mmol/L Carbon Dioxide 21 L (22-29) mmol/L Anion Gap 17 (12-20) BUN 41 H (9-16) mg/dL Creatinine 2.48 H (0.5-1.4) mg/dL Estim Creat Clear Calc 30.7 Estimated GFR 26 Random Glucose 276 H (60-115) mg/dL Lactic Acid (0.5-2.0) mmol/L Calcium 8.6 (8.4-10.2) mg/dL Magnesium 1.5 L (1.6-2.6) mg/dL Total Bilirubin 0.8 (0.0-1.0) mg/dL AST 16 (5-37) U/L ALT 15 (0-40) U/L Alkaline Phosphatase 65 (39-117) U/L Total Protein 7.2 (6.5-8.0) g/dL Albumin 3.9 (3.5-5.0) g/dL Influenza Type A (PCR) POSITIVE A (Negative) Influenza Type B (PCR) NEGATIVE (Negative) RSV RNA Qual (PCR) NEGATIVE (Negative) SARS-CoV-2 RNA (RT-PCR) NEGATIVE (Negative) 02/04/22 Range/Units 19:19 WBC (4.8-10.8) X10*3/uL RBC (4.60-5.80) X10*6/uL Hgb (14.0-18.0) g/dl Hct (42.0-52.0) % MCV (80.0-98.0) fL MCH (27.0-33.0) pg MCHC (31.0-36.0) g/dl RDW (11.0-16.0) % Plt Count (160-400) X10*3/uL MPV (9.4-12.4) fL Immature Gran % (Auto) (0.0-0.4) % Neut % (Auto) (45-73) % Lymph % (Auto) (20-40) % [place] % (Auto) (2-11) % Eos % (Auto) (0-4) % Baso % (Auto) (0-2) % Lymph # (Auto) (1.2-4.9) X10*3/uL [place] # (Auto) (0.1-1.2) X10*3/uL Eos # (Auto) (0.0-0.4) X10*3/uL Baso # (Auto) (0.0-0.2) X10*3/uL Abs Immat Gran (auto) (0.00-0.03) X10*3/uL Absolute Neuts (auto) (2.0-8.3) x10*3/uL Absolute Nucleated RBC (0.0-0.012) X10*3/uL Nucleated RBC % (auto) (0.0-0.2) /100WBC Sodium (135-145) mmol/L Potassium (3.3-5.1) mmol/L Chloride (96-108) mmol/L Carbon Dioxide (22-29) mmol/L Anion Gap (12-20) BUN (9-16) mg/dL Creatinine (0.5-1.4) mg/dL Estim Creat Clear Calc Estimated GFR Random Glucose (60-115) mg/dL Lactic Acid 2.0 (0.5-2.0) mmol/L Calcium (8.4-10.2) mg/dL Magnesium (1.6-2.6) mg/dL Total Bilirubin (0.0-1.0) mg/dL AST (5-37) U/L ALT (0-40) U/L Alkaline Phosphatase (39-117) U/L Total Protein (6.5-8.0) g/dL Albumin (3.5-5.0) g/dL Influenza Type A (PCR) (Negative) Influenza Type B (PCR) (Negative) RSV RNA Qual (PCR) (Negative) SARS-CoV-2 RNA (RT-PCR) (Negative) Discharge Plan Discharge Clinical Impression: Influenza A, Pneumonia Patient Disposition: Admitted As Inpatient
[2022-02-04] MEDS: 0.9 % Sodium Chloride 1,000 ML 999 ML IV (19:50)
[2022-02-04] MEDS: cefTRIAXone sodium 1 GM in 0.9 % Sodium Chloride 50 ML IV (19:50)
[2022-02-04] MEDS: Azithromycin 500 MG in 0.9 % Sodium Chloride 250 ML 125 MG IV (20:22)
--- NOTE | 2022-02-04 20:40 | P.HPHOSP_ITS ---
History of Present Illness Date of Service: 02/04/22 Chief Complaint: dehydrated 61-year-old male with past medical history of diabetes, history of right carotid endarterectomy, hypertension, migraines, peripheral neuropathy, presents to the hospital with complaints of poor oral intake, productive cough, fatigue,chills, generalized body aches, for the past 1 week. Patient denies any nausea vomiting, no diarrhea constipation, no urinary symptoms and no lower extremity edema. No recent sick contacts. On arrival to the ED patient hemodynamically stable with a temp of 99.9 degrees, heart rate of 110, satting 94% on room air Labs are significant for WBC count of 20.2, hemoglobin 13, left shift, creatin ine of 2.48 with a baseline around 0.8, Mag of 1.5, influenza a positive Chest x-ray reviewed shows newly developed mild interstitial opacification in the right upper lobe and left perihilar region concerning for interstitial pneumonitis Review of Systems Review of Systems: Yes all other systems are reviewed and are negative [facility] Medical History (Updated 02/04/22 @ 22:22 by Lisa Jeffries MD) Carotid stenosis Diabetes Elevated cholesterol Gout History of CVA (cerebrovascular accident) HTN (hypertension) Left eye symptoms Migraines Peripheral neuropathy Positive cardiac stress test Family History Father No problems noted. Mother Heart disease Surgical History (Updated 02/04/22 @ 22:19 by Lisa Jeffries MD) H/O endarterectomy History of ankle surgery Hx of bilateral hip replacements Hx of colonoscopy Social History Household Members: Spouse Housing: Other Housing Other:: mobil home Are you a primary career development associate to a significant other at home: No Do you presently have visiting nurse or other home services: No Alcohol intake: never Patient Tobacco Use Status: Former Tobacco user Quit Date: 6 years ago Tobacco use type: Cigarette Cigarette Packs Per Day: 3 Cigarettes Per Day: 60.0 Years Smoked: 45 e-Cigarette/Vaping Use: Former Use Second Hand Smoke Exposure: Yes Substance Use Type: Marijuana Advance Directives: No Advance Directives Information Provided: Yes service: No Current occupational status: employed Meds Allergies Allergy/AdvReac Type Severity Reaction Status Date / Time No Known Allergies Allergy Verified 02/04/22 17:07 Active Medications: Current Medications Azithromycin 500 mg/ Sodium (Chloride) 250 mls @ 125 mls/hr IV ONCE ONE Stop: 02/04/22 20:58 Last Admin: 02/04/22 20:22 Dose: 125 mls/hr Home Medications Medication Instructions Recorded Confirmed Last Taken Type albuterol sulfate 90 mcg/actuation 2 puff PO QID PRN Shortness Of 06/28/21 09/05/21 Unknown History aerosol inhaler Breath Or Wheezing allopurinol 100 mg tablet 100 mg PO DAILY 06/28/21 09/05/21 Unknown History bromfenac 0.07 % eye drops 1 drp ophthalmic-Left QAM 06/28/21 09/05/21 Unknown History (Prolensa) gabapentin 300 mg capsule 600 mg PO BID 06/28/21 09/05/21 09/05/21 History glipizide 5 mg tablet 10 mg PO BID 06/28/21 09/05/21 Unknown History hydrochlorothiazide 25 mg tablet 25 mg PO DAILY 06/28/21 08/31/21 Unknown History metformin 500 mg tablet 1,000 mg PO BID 06/28/21 08/31/21 Unknown History sitagliptin phosphate 100 mg 100 mg PO DAILY 06/28/21 08/31/21 Unknown History tablet (Januvia) aspirin 81 mg tablet,delayed 81 mg PO DAILY 08/26/21 09/05/21 09/05/21 History release insulin detemir U-100 100 unit/mL 14 unit subcut DAILY 08/30/21 08/31/21 Unknown History (3 mL) subcutaneous pen (Levemir FlexTouch U-100 Insulin) atorvastatin 20 mg tablet 20 mg PO DAILY 12/22/21 Unknown History Physical Exam Vital Signs and Narrative: Vital Signs: Last Vital Signs Temp 99.9 F 02/04/22 17:07 Pulse 110 H 02/04/22 17:07 Resp 18 02/04/22 17:07 BP 146/75 H 02/04/22 17:07 Pulse Ox 94 02/04/22 17:07 O2 Del Method 02/04/22 17:07 BMI result Body Mass Index 31.6 Const: General: cooperative and no acute distress Orientation/consciousness: patient oriented x3 Eyes: General: appearance normal, both eyes and all related structures Resp: Other: diminished breath sounds Effort & Inspection: normal respiratory effort Cardio: Rate: regular rate Rhythm: regular rhythm GI: Palpation (GI): Soft to palpation Auscultation: normal bowel sounds Skin: General skin exam: no rashes or lesions noted Neuro: General: patient oriented x3 Cognition (Neuro): normal cognition Extrem: General: Yes normal to inspection and Yes no pedal edema Results Labs CBC and Chem 7: 02/04/22 17:22 02/04/22 17:22 Labs: Laboratory Results - last 24 hr 02/04/22 02/04/22 02/04/22 17:22 17:22 17:22 MCV 93.3 MCH 30.5 MCHC 32.7 RDW 12.7 Plt Count 301 MPV 9.3 L Immature Gran % (Auto) 1.1 H Neut % (Auto) 86.5 H Lymph % (Auto) 5.1 L [place] % (Auto) 7.1 Eos % (Auto) 0.0 Baso % (Auto) 0.2 Lymph # (Auto) 1.0 L [place] # (Auto) 1.4 H Eos # (Auto) 0.0 Baso # (Auto) 0.1 Abs Immat Gran (auto) 0.22 H Absolute Neuts (auto) 17.5 H Absolute Nucleated RBC 0.000 Nucleated RBC % (auto) 0.0 Anion Gap 17 Estim Creat Clear Calc 30.7 Estimated GFR 26 Random Glucose 276 H Lactic Acid Calcium 8.6 Magnesium 1.5 L Total Bilirubin 0.8 AST 16 ALT 15 Alkaline Phosphatase 65 Total Protein 7.2 Albumin 3.9 Influenza Type A (PCR) POSITIVE A Influenza Type B (PCR) NEGATIVE RSV RNA Qual (PCR) NEGATIVE SARS-CoV-2 RNA (RT-PCR) NEGATIVE 02/04/22 19:19 MCV MCH MCHC RDW Plt Count MPV Immature Gran % (Auto) Neut % (Auto) Lymph % (Auto) [place] % (Auto) Eos % (Auto) Baso % (Auto) Lymph # (Auto) [place] # (Auto) Eos # (Auto) Baso # (Auto) Abs Immat Gran (auto) Absolute Neuts (auto) Absolute Nucleated RBC Nucleated RBC % (auto) Anion Gap Estim Creat Clear Calc Estimated GFR Random Glucose Lactic Acid 2.0 Calcium Magnesium Total Bilirubin AST ALT Alkaline Phosphatase Total Protein Albumin Influenza Type A (PCR) Influenza Type B (PCR) RSV RNA Qual (PCR) SARS-CoV-2 RNA (RT-PCR) Imaging Radiologist's Impressions: Impressions Chest X-Ray 02/04/22 17:36 IMPRESSION: Newly developed mild interstitial opacification right upper lobe and left parahilar region concerning for interstitial pneumonitis. No dense lobar consolidation or pleural effusion. Assessment and Plan (1) Influenza A: Status: Acute (2) Pneumonia: Status: Acute (3) SHELLEY (acute kidney injury): Status: Acute (4) Sepsis: Status: Acute Plan 61-year-old male with past medical history of hypertension, diabetes presents to the hospital positive for the flu found to have pneumonia # sepsis - secondary to pneumonia - leukocytosis, febrile, tachycardic - normal lactic acid - IV antibiotic - follow cultures - IV fluids # pneumonia - likely bacterial this point given duration of symptoms for 1 wk - has evidence of leukocytosis, low-grade fever, tachycardia - will treat with IV antibiotics - follow cultures # influenza a - with underlying pneumonia - will treat with Tamiflu - monitor symptoms # SHELLEY - secondary to dehydration - IV fluids - follow BMP # diabetes - low-dose sliding scale insulin - diabetic diet # hypertension - stable - continue antihypertensives DVT prophylaxis: Lovenox # given pneumonia Time Spent With Patient Time: Total time managing care of this patient today ____ minutes. Quality Stroke Does the patient have a stroke diagnosis?: No VTE Prior VTE?: No VTE Risk Level:: Medical - moderate - high VTE Device Contraindication: Treatment Not Indicated VTE Drug Contraindication: N/A - Med Ordered
--- NOTE | 2022-02-04 22:11 | PC.NURSE ---
pt fell asleep with arm bend, occluding IVF infusion, reminded pt to keep arm straight. Line patent, infusing without issue.
[2022-02-04 22:30] VITALS: BP 139/62; PULSE 110; RESP 18; TEMP 38.4; O2SAT 89
[2022-02-04] MEDS: Lactated Ringers 1,000 ML 100 ML IVCONT (22:50)
[2022-02-04] MEDS: Acetaminophen 325 MG TABLET 650 MG PO (22:50)
--- NOTE | 2022-02-04 22:57 | PC.NURSE ---
called to room by windows migration technician, pt Spo2 now 88%on RA, febrile at 101. pt does not endorse CP/SOB reviewed with hospitALIST, placed pt on 2L o2 via NC, APAP given per MAR, LR infusing.
--- NOTE | 2022-02-04 23:05 | PC.NURSE ---
report given to POLO Miller, moved to ED20 spo2 92% on 2L via NC
[2022-02-04] MEDS: Enoxaparin Sodium 40 MG/0.4 ML SYRINGE SUBCUT (23:19)
[2022-02-04] MEDS: Magnesium Sulfate/H2O 2 GM/50 ML PIGGYBACK IV (23:19)
[2022-02-04 23:24] VITALS: BP 117/63; PULSE 107; PULSE 108; RESP 20; RESP 25; TEMP 40.3; O2SAT 91; BMI 31.6
[2022-02-05] VITALS (8 sets, daily range): BP systolic 93–150; BP diastolic 56–75; PULSE 84–99; RESP 16–32; TEMP 37–38.6; O2SAT 92–95
[2022-02-05 07:20] LABS: Anion Gap 14 (12-20); Blood Urea Nitrogen 45 mg/dL (9-16); Calcium 7.9 mg/dL (8.4-10.2); Carbon Dioxide 19 mmol/L (22-29); Chloride 103 mmol/L (96-108); Creatinine Clr Calc Pharmacy 39.5; Estimated Glomerular Filt Rate 35; Glucose Random 174 mg/dL (60-115); Magnesium 1.8 mg/dL (1.6-2.6); Potassium 4.4 mmol/L (3.3-5.1); Sodium 132 mmol/L (135-145)
[2022-02-05 07:26] LABS: Hematocrit 36.5 % (42.0-52.0); Mean Corpuscular HGB Conc 32.9 g/dl (31.0-36.0); Mean Corpuscular Hemoglobin 30.5 pg (27.0-33.0); Mean Corpuscular Volume 92.6 fL (80.0-98.0); Mean Platelet Volume 9.8 fL (9.4-12.4); Platelet Count 261 X10*3/uL (160-400); Red Blood Count 3.94 X10*6/uL (4.60-5.80); Red Cell Distribution Width 12.7 % (11.0-16.0); White Blood Count 20.8 X10*3/uL (4.8-10.8)
[2022-02-05 07:38] LABS: Band Neutrophils Percent 6 % (3-5); Lymphocytes Absolute Manual 0.8 X10*3/uL (1.2-4.9); Lymphocytes Percent Manual 4 % (20-40); Monocytes Absolute Manual 2.1 X10*3/uL (0.1-1.2); Monocytes Percent Manual 10 % (2-11); Neutrophils Absolute Manual 17.9 X10*3/uL (2.0-8.3); Neutrophils Percent Manual 80 % (45-73)
[2022-02-05 07:39] LABS: Glucose, Whole Blood 203 mg/dL (60-115)
[2022-02-05 07:39] LABS: Platelet Estimate NORMAL (NORMAL); Platelet Morphology Comment NORMAL; RBC Morphology NORMAL
[2022-02-05] MEDS: Insulin Lispro 100 UNIT/ML 3 ML VIAL SUBCUT ×4 (07:45→21:01)
[2022-02-05 09:15] LABS: C Reactive Protein 37.67 mg/dL (< or = 0.50)
[2022-02-05] MEDS: Doxycycline Monohydrate 100 MG CAPSULE PO ×2 (09:24→19:43)
[2022-02-05] MEDS: 0.9 % Sodium Chloride 1,000 ML 125 ML IVCONT ×3 (09:24→23:26)
[2022-02-05 09:38] LABS: Procalcitonin 5.51 ng/mL
--- NOTE | 2022-02-05 09:39 | PHA.MEDREC ---
Pharmacy Consult ? Medication Reconciliation Pharmacy has completed the medication reconciliation Patient gets levemir 14 unit bedtime insulin from [facility]. .
--- NOTE | 2022-02-05 10:21 | PC.NURSE ---
Pt denies any pain at this time, 94% at 4L. LR changed to Normal Saline.
--- NOTE | 2022-02-05 12:47 | HO.PM.IMPN ---
Subjective Subjective Date of Service: 02/05/22 Interval History: dyspnea + cough, no fever no chest pain Review of Systems Review of Systems: Yes all other systems are reviewed and are negative Physical Exam Vital Signs: Vital Signs: Last Vital Signs Temp 99.1 F 02/05/22 09:27 Pulse 97 02/05/22 09:27 Resp 32 H 02/05/22 09:27 BP 130/68 02/05/22 09:27 Pulse Ox 94 02/05/22 09:27 O2 Del Method 02/05/22 09:27 O2 Flow Rate 4 02/05/22 09:27 Oxygen Flow Rate 2 02/05/22 02:18 BMI result Body Mass Index 31.6 Gen: moderate resp distress HEENT: sclera anicteric, moist mucus membranes Neck: supple Lungs: scattered inspiratory crackles + expiratory wheezes Heart: regular rate and rhythm, no murmurs Abd: soft, non-tender, non-distended Ext: no edema Skin: warm/well-perfused Neuro: alert and oriented x3, no focal findings Psych: appropriate affect Objective Data Active Medications Acetaminophen (Acetaminophen 325 Mg Tablet) 650 mg PO Q6H PRN PRN Reason: Pain, Mild (Pain Scale 1-3) Last Admin: 02/04/22 22:50 Dose: 650 mg Documented By: WES Albuterol Sulfate (Albuterol Sulfate 90 Mcg 8 Gm Inhaler) 2 puff INHALE QID PRN PRN Reason: Shortness Of Breath Or Wheezing Amlodipine Besylate (Amlodipine Besylate 5 Mg Tablet) 5 mg PO DAILY [facility]; Protocol Atorvastatin Calcium (Atorvastatin Calcium 20 Mg Tablet) 20 mg PO BEDTIME [facility] Dextrose (Dextrose 50 % 25 Gm/50 Ml Syringe) 25 gm IVPUSH Q15M PRN; Protocol PRN Reason: per Hypoglycemia Standing Ord. Docusate Sodium (Docusate Sodium 100 Mg Capsule) 100 mg PO DAILY PRN PRN Reason: Constipation Doxycycline Monohydrate (Doxycycline Monohydrate 100 Mg Capsule) 100 mg PO Q12H [facility] Last Admin: 02/05/22 09:24 Dose: 100 mg Documented By: SHADY Enoxaparin Sodium (Enoxaparin Sodium 40 Mg/0.4 Ml Syringe) 40 mg SUBCUT Q24H [facility] Last Admin: 02/04/22 23:19 Dose: 40 mg Documented By: VISHNU Gabapentin (Gabapentin 300 Mg Capsule) 300 mg PO QID [facility] Glucose (Glucose Gel 15 Gm Gel..Gram.) 15 gm PO Q15M PRN; Protocol PRN Reason: per Hypoglycemia Standing Ord. Hydrochlorothiazide (Hydrochlorothiazide 25 Mg Tablet) 25 mg PO DAILY [facility]; Protocol Ceftriaxone Sodium 1 gm/ (Sodium Chloride) 50 mls @ 100 mls/hr IV Q24H [facility] Sodium Chloride (Ns) 1,000 mls @ 125 mls/hr IVCONT .Q8H [facility] Last Admin: 02/05/22 09:24 Dose: 125 mls/hr Documented By: SHADY Insulin Glargine (Insulin Glargine,Hum.Rec.Anlog 100 Unit/Ml 10 Ml Vial) 10 unit SUBCUT BEDTIME [facility] Insulin Human Lispro (Insulin Lispro 100 Unit/Ml 3 Ml Vial) 0 unit SUBCUT QIDACHS [facility]; Protocol Last Admin: 02/05/22 07:45 Dose: 4 unit Documented By: SINCERE Lisinopril (Lisinopril 5 Mg Tablet) 5 mg PO DAILY [facility]; Protocol Metoprolol Succinate (Metoprolol Succinate Er 25 Mg Tab.Er.24h) 25 mg PO DAILY [facility]; Protocol Non-Formulary Medication (Bromfenac [Prolensa]) 1 drop EYE-BOTH DAILY [facility] Ondansetron HCl (Ondansetron Hcl 4 Mg/2 Ml Vial) 4 mg IVPUSH Q8H PRN PRN Reason: Nausea and Vomiting Prednisone (Prednisone 20 Mg Tablet) 40 mg PO DAILY [facility] Stop: 02/09/22 09:01 Sodium Chloride (0.9 % Sodium Chloride Flush 3 Ml Syringe) 3 ml IVFLUSH QSHIFT [facility] Last Admin: 02/05/22 07:30 Dose: Not Given Documented By: SINCERE Non-Admin Reason: IV Running Vitamin D (Cholecalciferol (Vitamin D3) 25 Mcg Tablet) 50 mcg PO DAILY [facility] Labs CBC & Chem 7: 02/05/22 06:29 02/05/22 06:29 Labs: Laboratory Results - last 24 hr 02/04/22 02/04/22 02/04/22 17:22 17:22 17:22 MCV 93.3 MCH 30.5 MCHC 32.7 RDW 12.7 Plt Count 301 MPV 9.3 L Immature Gran % (Auto) 1.1 H Neut % (Auto) 86.5 H Lymph % (Auto) 5.1 L [place] % (Auto) 7.1 Eos % (Auto) 0.0 Baso % (Auto) 0.2 Lymph # (Auto) 1.0 L [place] # (Auto) 1.4 H Eos # (Auto) 0.0 Baso # (Auto) 0.1 Abs Immat Gran (auto) 0.22 H Absolute Neuts (auto) 17.5 H Absolute Nucleated RBC 0.000 Nucleated RBC % (auto) 0.0 Neutrophils % (Manual) Band Neutrophils % Lymphocytes % (Manual) Monocytes % (Manual) Abs Neuts (Manual) Lymphocytes # (Manual) Monocytes # (Manual) Platelet Estimate Plt Morphology Comment RBC Morphology Anion Gap 17 Estim Creat Clear Calc 30.7 Estimated GFR 26 POC Glucose Random Glucose 276 H Lactic Acid Calcium 8.6 Magnesium 1.5 L Total Bilirubin 0.8 AST 16 ALT 15 Alkaline Phosphatase 65 C-Reactive Protein Total Protein 7.2 Albumin 3.9 Procalcitonin Influenza Type A (PCR) POSITIVE A Influenza Type B (PCR) NEGATIVE RSV RNA Qual (PCR) NEGATIVE SARS-CoV-2 RNA (RT-PCR) NEGATIVE 02/04/22 02/05/22 02/05/22 19:19 06:29 06:29 MCV 92.6 MCH 30.5 MCHC 32.9 RDW 12.7 Plt Count 261 MPV 9.8 Immature Gran % (Auto) Cancelled Neut % (Auto) Cancelled Lymph % (Auto) Cancelled [place] % (Auto) Cancelled Eos % (Auto) Cancelled Baso % (Auto) Cancelled Lymph # (Auto) Cancelled [place] # (Auto) Cancelled Eos # (Auto) Cancelled Baso # (Auto) Cancelled Abs Immat Gran (auto) Cancelled Absolute Neuts (auto) Cancelled Absolute Nucleated RBC 0.000 Nucleated RBC % (auto) 0.0 Neutrophils % (Manual) 80 H Band Neutrophils % 6 H Lymphocytes % (Manual) 4 L Monocytes % (Manual) 10 Abs Neuts (Manual) 17.9 H Lymphocytes # (Manual) 0.8 L Monocytes # (Manual) 2.1 H Platelet Estimate NORMAL Plt Morphology Comment NORMAL RBC Morphology NORMAL Anion Gap 14 Estim Creat Clear Calc 39.5 Estimated GFR 35 POC Glucose Random Glucose 174 H Lactic Acid 2.0 Calcium 7.9 L D Magnesium 1.8 Total Bilirubin AST ALT Alkaline Phosphatase C-Reactive Protein 37.67 H Total Protein Albumin Procalcitonin Influenza Type A (PCR) Influenza Type B (PCR) RSV RNA Qual (PCR) SARS-CoV-2 RNA (RT-PCR) 02/05/22 02/05/22 06:29 07:34 MCV MCH MCHC RDW Plt Count MPV Immature Gran % (Auto) Neut % (Auto) Lymph % (Auto) [place] % (Auto) Eos % (Auto) Baso % (Auto) Lymph # (Auto) [place] # (Auto) Eos # (Auto) Baso # (Auto) Abs Immat Gran (auto) Absolute Neuts (auto) Absolute Nucleated RBC Nucleated RBC % (auto) Neutrophils % (Manual) Band Neutrophils % Lymphocytes % (Manual) Monocytes % (Manual) Abs Neuts (Manual) Lymphocytes # (Manual) Monocytes # (Manual) Platelet Estimate Plt Morphology Comment RBC Morphology Anion Gap Estim Creat Clear Calc Estimated GFR POC Glucose 203 H Random Glucose Lactic Acid Calcium Magnesium Total Bilirubin AST ALT Alkaline Phosphatase C-Reactive Protein Total Protein Albumin Procalcitonin 5.51 Influenza Type A (PCR) Influenza Type B (PCR) RSV RNA Qual (PCR) SARS-CoV-2 RNA (RT-PCR) Assessment and Plan (1) Sepsis: Status: Acute [facility] hospital d#2 61yo M with HTN, DM2, and asthma presenting with sepsis and hypoxia due to influenza with likely post-influenza bacterial PNA with SHELLEY # pneumonia - doxycycline + ceftriaxone d#2, trend PCT, follow BCx, check Legionella + pneumococcal antigens, CT chest pending # influenza A - oseltamivir d#2 # mild intermittent asthma with acute exac - prednisone d#1, prn albuterol # SHELLEY - likely prerenal, continue IV fluids, avoid nephrotoxins, hold lisinopril + HCTZ, recheck BMP in AM # AHRF - wean O2 as tolerated- on 4L via NC # HTN - continue metoprolol succinate, hold lisinopril + HCTZ # DM2 - hold MTF, give basal-bolus insulin # neuropathy - gabapentin # VTE ppx: LMWH # dispo: TBD In my clinical judgment, the patient requires continued inpatient hospitalization for the following reasons: hypoxia, IV ABX Time Spent With Patient Time: Total time managing care of this patient today _35___ minutes. Quality Stroke Does the patient have a stroke diagnosis?: No VTE Prior VTE?: No VTE Risk Level:: Medical - moderate - high VTE Device Contraindication: Treatment Not Indicated VTE Drug Contraindication: N/A - Med Ordered
[2022-02-05] MEDS: predniSONE 20 MG TABLET 40 MG PO (13:01)
[2022-02-05] MEDS: Gabapentin 300 MG CAPSULE PO ×3 (13:01→19:44)
[2022-02-05] MEDS: Acetaminophen 325 MG TABLET 650 MG PO (13:06)
[2022-02-05 13:41] LABS: Glucose, Whole Blood 172 mg/dL (60-115)
--- NOTE | 2022-02-05 13:43 | PC.NURSE ---
Pt medicated with tylenol for fever, eating lunch at this time
[2022-02-05 17:59] LABS: Glucose, Whole Blood 339 mg/dL (60-115)
[2022-02-05] MEDS: cefTRIAXone sodium 1 GM in 0.9 % Sodium Chloride 50 ML IV (19:38)
[2022-02-05] MEDS: Atorvastatin Calcium 20 MG TABLET PO (19:44)
[2022-02-05] MEDS: 0.9 % Sodium Chloride Flush 3 ML SYRINGE IVFLUSH (19:46)
[2022-02-05 20:38] LABS: Glucose, Whole Blood 373 mg/dL (60-115)
[2022-02-05] MEDS: Enoxaparin Sodium 40 MG/0.4 ML SYRINGE SUBCUT (20:59)
[2022-02-05] MEDS: Insulin Glargine,Hum.rec.anlog 100 UNIT/ML 10 ML VIAL 10 UNIT SUBCUT (21:01)
[2022-02-06 03:51] VITALS: BP 154/69; PULSE 87; RESP 17; TEMP 36.9; O2SAT 95
[2022-02-06 06:15] LABS: Hematocrit 33.3 % (42.0-52.0); Hemoglobin 11.2 g/dl (14.0-18.0); Mean Corpuscular HGB Conc 33.6 g/dl (31.0-36.0); Mean Corpuscular Hemoglobin 31.2 pg (27.0-33.0); Mean Corpuscular Volume 92.8 fL (80.0-98.0); Platelet Count 276 X10*3/uL (160-400); Red Blood Count 3.59 X10*6/uL (4.60-5.80); Red Cell Distribution Width 12.5 % (11.0-16.0); White Blood Count 24.5 X10*3/uL (4.8-10.8)
[2022-02-06] MEDS: 0.9 % Sodium Chloride 1,000 ML 125 ML IVCONT (06:24)
[2022-02-06 06:43] LABS: Anion Gap 16 (12-20); Blood Urea Nitrogen 42 mg/dL (9-16); Calcium 7.5 mg/dL (8.4-10.2); Carbon Dioxide 17 mmol/L (22-29); Chloride 104 mmol/L (96-108); Creatinine Clr Calc Pharmacy 56.9; Estimated Glomerular Filt Rate 54; Potassium 4.3 mmol/L (3.3-5.1); Sodium 133 mmol/L (135-145)
[2022-02-06 06:48] LABS: Glucose Random 353 mg/dL (60-115)
[2022-02-06 07:32] LABS: Glucose, Whole Blood 313 mg/dL (60-115)
[2022-02-06 08:00] VITALS: BP 129/75; PULSE 94; RESP 18; TEMP 37.1; O2SAT 94
[2022-02-06] MEDS: Gabapentin 300 MG CAPSULE PO ×4 (08:08→20:15)
[2022-02-06] MEDS: predniSONE 20 MG TABLET 40 MG PO (08:08)
[2022-02-06] MEDS: amLODIPine Besylate 5 MG TABLET PO (08:08)
[2022-02-06] MEDS: Doxycycline Monohydrate 100 MG CAPSULE PO ×2 (08:08→20:14)
[2022-02-06] MEDS: Cholecalciferol (Vitamin D3) 25 MCG TABLET 50 MCG PO (08:09)
[2022-02-06] MEDS: Insulin Lispro 100 UNIT/ML 3 ML VIAL SUBCUT ×4 (08:09→20:15)
[2022-02-06] MEDS: Metoprolol Succinate ER 25 MG TAB.ER.24H PO (08:09)
[2022-02-06] MEDS: Lactated Ringers 1,000 ML 125 ML IVCONT ×3 (08:10→23:32)
[2022-02-06] MEDS: 0.9 % Sodium Chloride Flush 3 ML SYRINGE IVFLUSH (08:10)
--- NOTE | 2022-02-06 09:37 | P.PNIM_ITS ---
Subjective Subjective Date of Service: 02/06/22 Interval History: febrile to 101.5 yesterday afternoon; no fever since dyspnea/cough slightly improved feels tired and c/o myalgias no chest pain Review of Systems Review of Systems: Yes all other systems are reviewed and are negative Physical Exam Vital Signs: Vital Signs: Last Vital Signs Temp 98.7 F 02/06/22 08:00 Pulse 94 02/06/22 08:00 Resp 18 02/06/22 08:00 BP 129/75 02/06/22 08:00 Pulse Ox 94 02/06/22 08:00 O2 Del Method 02/06/22 08:00 O2 Flow Rate 3 02/06/22 08:00 Oxygen Flow Rate 2 02/05/22 02:18 BMI result Body Mass Index 31.6 Gen: NAD HEENT: sclera anicteric, moist mucus membranes Neck: supple Lungs: scattered inspiratory crackles Heart: regular rate and rhythm, no murmurs Abd: soft, non-tender, non-distended Ext: no edema Skin: warm/well-perfused Neuro: alert and oriented x3, no focal findings Psych: appropriate affect Objective Data Active Medications Acetaminophen (Acetaminophen 325 Mg Tablet) 650 mg PO Q6H PRN PRN Reason: Pain, Mild (Pain Scale 1-3) Last Admin: 02/05/22 13:06 Dose: 650 mg Documented By: SHADY Albuterol Sulfate (Albuterol Sulfate 90 Mcg 8 Gm Inhaler) 2 puff INHALE QID PRN PRN Reason: Shortness Of Breath Or Wheezing Amlodipine Besylate (Amlodipine Besylate 5 Mg Tablet) 5 mg PO DAILY [facility]; Protocol Last Admin: 02/06/22 08:08 Dose: 5 mg Documented By: SHANTEL Atorvastatin Calcium (Atorvastatin Calcium 20 Mg Tablet) 20 mg PO BEDTIME [facility] Last Admin: 02/05/22 19:44 Dose: 20 mg Documented By: JEDRINJostin Dextrose (Dextrose 50 % 25 Gm/50 Ml Syringe) 25 gm IVPUSH Q15M PRN; Protocol PRN Reason: per Hypoglycemia Standing Ord. Docusate Sodium (Docusate Sodium 100 Mg Capsule) 100 mg PO DAILY PRN PRN Reason: Constipation Doxycycline Monohydrate (Doxycycline Monohydrate 100 Mg Capsule) 100 mg PO Q12H [facility] Last Admin: 02/06/22 08:08 Dose: 100 mg Documented By: SHANTEL Enoxaparin Sodium (Enoxaparin Sodium 40 Mg/0.4 Ml Syringe) 40 mg SUBCUT Q24H [facility] Last Admin: 02/05/22 20:59 Dose: 40 mg Documented By: HAILEE Gabapentin (Gabapentin 300 Mg Capsule) 300 mg PO QID [facility] Last Admin: 02/06/22 08:08 Dose: 300 mg Documented By: SHANTEL Glucose (Glucose Gel 15 Gm Gel..Gram.) 15 gm PO Q15M PRN; Protocol PRN Reason: per Hypoglycemia Standing Ord. Ceftriaxone Sodium 1 gm/ (Sodium Chloride) 50 mls @ 100 mls/hr IV Q24H [facility] Last Infusion: 02/05/22 20:14 Dose: 0 mls/hr Documented By: HAILEE Lactated Ringer's (Lr) 1,000 mls @ 125 mls/hr IVCONT .Q8H [facility] Last Admin: 02/06/22 08:10 Dose: 125 mls/hr Documented By: SHANTEL Insulin Glargine (Insulin Glargine,Hum.Rec.Anlog 100 Unit/Ml 10 Ml Vial) 14 unit SUBCUT BEDTIME [facility] Insulin Human Lispro (Insulin Lispro 100 Unit/Ml 3 Ml Vial) 0 unit SUBCUT QIDACHS [facility]; Protocol Last Admin: 02/06/22 08:09 Dose: 10 unit Documented By: SHANTEL Metoprolol Succinate (Metoprolol Succinate Er 25 Mg Tab.Er.24h) 25 mg PO DAILY [facility]; Protocol Last Admin: 02/06/22 08:09 Dose: 25 mg Documented By: SHANTEL Non-Formulary Medication (Bromfenac [Prolensa]) 1 drop EYE-BOTH DAILY [facility] Ondansetron HCl (Ondansetron Hcl 4 Mg/2 Ml Vial) 4 mg IVPUSH Q8H PRN PRN Reason: Nausea and Vomiting Prednisone (Prednisone 20 Mg Tablet) 40 mg PO DAILY [facility] Stop: 02/09/22 09:01 Last Admin: 02/06/22 08:08 Dose: 40 mg Documented By: SHANTEL Sodium Chloride (0.9 % Sodium Chloride Flush 3 Ml Syringe) 3 ml IVFLUSH QSHIFT [facility] Last Admin: 01/02/23 08:10 Dose: 3 ml Documented By: SHANTEL Vitamin D (Cholecalciferol (Vitamin D3) 25 Mcg Tablet) 50 mcg PO DAILY [facility] Last Admin: 02/06/22 08:09 Dose: 50 mcg Documented By: SHANTEL Labs CBC & Chem 7: 02/06/22 05:27 02/06/22 05:27 Labs: Laboratory Results - last 24 hr 02/05/22 02/05/22 02/05/22 06:29 13:37 17:55 MCV MCH MCHC RDW Plt Count MPV Absolute Nucleated RBC Nucleated RBC % (auto) Anion Gap Estim Creat Clear Calc Estimated GFR POC Glucose 172 H 339 H Random Glucose Calcium Magnesium Procalcitonin 5.51 02/05/22 02/06/22 02/06/22 19:29 05:27 05:27 MCV 92.8 MCH 31.2 MCHC 33.6 RDW 12.5 Plt Count 276 MPV 10.0 Absolute Nucleated RBC 0.000 Nucleated RBC % (auto) 0.0 Anion Gap 16 Estim Creat Clear Calc 56.9 Estimated GFR 54 POC Glucose 373 H* Random Glucose 353 H* Calcium 7.5 L Magnesium 2.0 Procalcitonin 02/06/22 07:22 MCV MCH MCHC RDW Plt Count MPV Absolute Nucleated RBC Nucleated RBC % (auto) Anion Gap Estim Creat Clear Calc Estimated GFR POC Glucose 313 H Random Glucose Calcium Magnesium Procalcitonin Microbiology Microbiology Results: Microbiology 02/04/22 19:19 Blood Culture - Preliminary Blood - Venous No growth after 24 hours. 02/04/22 19:19 Blood Culture - Preliminary Blood - Venous No growth after 24 hours. Assessment and Plan (1) Sepsis: Status: Acute [facility] hospital d#3 61yo M with HTN, DM2, and asthma presenting with sepsis and hypoxia due to influenza with likely post-influenza bacterial PNA with SHELLEY # pneumonia - doxycycline + ceftriaxone d#3, trend PCT, follow BCx, check Legionella + pneumococcal antigens + MRSA swab, CT chest pending # influenza A - oseltamivir d#3/5 # mild intermittent asthma with acute exac - prednisone d#2/5, prn albuterol # SHELLEY - likely prerenal, continue IV fluids, avoid nephrotoxins, hold lisinopril + HCTZ; improving; recheck BMP in AM and may restart lisinopril tomorrow # AHRF - wean O2 as tolerated- 4L->3L via NC # HTN - continue metoprolol succinate, hold lisinopril + HCTZ # DM2 with hyperglycemia - hold MTF, give basal-bolus insulin- increase doses today # neuropathy - gabapentin # VTE ppx: LMWH # dispo: TBD In my clinical judgment, the patient requires continued inpatient hospitalization for the following reasons: hypoxia, IV ABX Time Spent With Patient Time: Total time managing care of this patient today _35___ minutes. Quality Stroke Does the patient have a stroke diagnosis?: No VTE Prior VTE?: No VTE Risk Level:: Medical - moderate - high VTE Device Contraindication: Treatment Not Indicated VTE Drug Contraindication: N/A - Med Ordered
--- NOTE | 2022-02-06 09:38 | MHC.CM.PN ---
IMM 02/06/22 DELIVERED AND PLACED IN CHART, EMR REVIEWED, PT ADMITTED W/FLU/PNA, PT REPORTS HE LIVES WITH , IS INDEP W/ALL CARE, REPORTS DIABETIC SUPPLIES AND INSULIN AND REPORTS HE TAKES 14UNITS OF LONG ACTING AT BEDTIME. DME AND NO HOME SERVICES. PT VERIFIES PCP IS NISHA MARTIN, JAZIEL X3 AND HCP VERIFIED MANOJ CRUM [phone], COPY REQUESTED. ANTIC D/C HOME NO SERVICES ONCE MEDICALLY CLEARED, PT WILL ARRANGE TRANSPORT
[2022-02-06 11:40] LABS: Glucose, Whole Blood 280 mg/dL (60-115)
[2022-02-06 12:36] LABS: MRSA Nasal PCR POSITIVE (Negative); SA Nasal PCR POSITIVE (Negative)
[2022-02-06 15:26] VITALS: BP 156/72; PULSE 81; RESP 18; TEMP 37.1; O2SAT 95
[2022-02-06 15:33] LABS: Glucose, Whole Blood 408 mg/dL (60-115)
[2022-02-06] MEDS: cefTRIAXone sodium 1 GM in 0.9 % Sodium Chloride 50 ML IV (18:26)
[2022-02-06 19:28] VITALS: BP 179/81; PULSE 78; RESP 18; TEMP 36.8; O2SAT 96
[2022-02-06 19:36] LABS: Glucose, Whole Blood 368 mg/dL (60-115)
[2022-02-06] MEDS: Atorvastatin Calcium 20 MG TABLET PO (20:14)
[2022-02-06] MEDS: Insulin Glargine,Hum.rec.anlog 100 UNIT/ML 10 ML VIAL 18 UNIT SUBCUT (20:16)
[2022-02-06] MEDS: Enoxaparin Sodium 40 MG/0.4 ML SYRINGE SUBCUT (23:30)
[2022-02-07 04:00] VITALS: BP 171/77; PULSE 80; RESP 15; TEMP 37; O2SAT 95
[2022-02-07 06:19] LABS: Hematocrit 33.4 % (42.0-52.0); Hemoglobin 11.2 g/dl (14.0-18.0); Mean Corpuscular HGB Conc 33.5 g/dl (31.0-36.0); Mean Corpuscular Hemoglobin 30.7 pg (27.0-33.0); Mean Corpuscular Volume 91.5 fL (80.0-98.0); Platelet Count 315 X10*3/uL (160-400); Red Blood Count 3.65 X10*6/uL (4.60-5.80); Red Cell Distribution Width 12.6 % (11.0-16.0); White Blood Count 25.3 X10*3/uL (4.8-10.8)
[2022-02-07 06:26] LABS: Anion Gap 13 (12-20); Blood Urea Nitrogen 27 mg/dL (9-16); Calcium 8.6 mg/dL (8.4-10.2); Carbon Dioxide 22 mmol/L (22-29); Chloride 107 mmol/L (96-108); Creatinine Clr Calc Pharmacy 87.7; Estimated Glomerular Filt Rate > 60; Glucose Random 191 mg/dL (60-115); Potassium 4.3 mmol/L (3.3-5.1); Sodium 138 mmol/L (135-145)
[2022-02-07 06:44] LABS: Procalcitonin 1.85 ng/mL
[2022-02-07 07:35] LABS: Glucose, Whole Blood 236 mg/dL (60-115)
[2022-02-07 08:00] VITALS: BP 178/82; PULSE 89; RESP 18; TEMP 37.4; O2SAT 95
[2022-02-07 08:09] LABS: Estimated Average Glucose 154 mg/dL
[2022-02-07] MEDS: Metoprolol Succinate ER 25 MG TAB.ER.24H PO (08:40)
[2022-02-07] MEDS: Cholecalciferol (Vitamin D3) 25 MCG TABLET 50 MCG PO (08:41)
[2022-02-07] MEDS: predniSONE 20 MG TABLET 40 MG PO (08:41)
[2022-02-07] MEDS: Gabapentin 300 MG CAPSULE PO ×4 (08:41→21:10)
[2022-02-07] MEDS: Doxycycline Monohydrate 100 MG CAPSULE PO ×2 (08:41→21:10)
[2022-02-07] MEDS: amLODIPine Besylate 5 MG TABLET PO (08:42)
[2022-02-07] MEDS: 0.9 % Sodium Chloride Flush 3 ML SYRINGE IVFLUSH ×2 (08:42→21:11)
[2022-02-07] MEDS: Insulin Lispro 100 UNIT/ML 3 ML VIAL SUBCUT ×4 (08:42→21:11)
[2022-02-07] MEDS: Lactated Ringers 1,000 ML 125 ML IVCONT (08:42)
[2022-02-07] MEDS: lisinopriL 5 MG TABLET PO (09:30)
[2022-02-07 11:28] LABS: Glucose, Whole Blood 215 mg/dL (60-115)
--- NOTE | 2022-02-07 11:53 | P.PNIM_ITS ---
Subjective Subjective Date of Service: 02/07/22 Interval History: fever resolved dyspnea/cough improved Review of Systems Review of Systems: Yes all other systems are reviewed and are negative Physical Exam Vital Signs: Vital Signs: Last Vital Signs Temp 99.3 F 02/07/22 08:00 Pulse 89 02/07/22 08:00 Resp 18 02/07/22 08:00 BP 178/82 H 02/07/22 08:00 Pulse Ox 95 02/07/22 08:00 O2 Del Method 02/07/22 08:00 O2 Flow Rate 3 02/07/22 08:00 Oxygen Flow Rate 2 02/05/22 02:18 BMI result Body Mass Index 31.6 Gen: in no acute distress HEENT: sclera anicteric, moist mucus membranes Neck: supple Lungs: diminished bilaterally Heart: regular rate and rhythm, no murmurs Abd: soft, non-tender, non-distended Ext: no edema Skin: warm/well-perfused Neuro: alert and oriented x3, no focal findings Psych: appropriate affect Objective Data Active Medications Acetaminophen (Acetaminophen 325 Mg Tablet) 650 mg PO Q6H PRN PRN Reason: Pain, Mild (Pain Scale 1-3) Last Admin: 02/05/22 13:06 Dose: 650 mg Documented By: SHADY Albuterol Sulfate (Albuterol Sulfate 90 Mcg 8 Gm Inhaler) 2 puff INHALE QID PRN PRN Reason: Shortness Of Breath Or Wheezing Amlodipine Besylate (Amlodipine Besylate 5 Mg Tablet) 5 mg PO DAILY [facility]; Protocol Last Admin: 02/07/22 08:42 Dose: 5 mg Documented By: DARIO Atorvastatin Calcium (Atorvastatin Calcium 20 Mg Tablet) 20 mg PO BEDTIME [facility] Last Admin: 02/06/22 20:14 Dose: 20 mg Documented By: MAMI Dextrose (Dextrose 50 % 25 Gm/50 Ml Syringe) 25 gm IVPUSH Q15M PRN; Protocol PRN Reason: per Hypoglycemia Standing Ord. Docusate Sodium (Docusate Sodium 100 Mg Capsule) 100 mg PO DAILY PRN PRN Reason: Constipation Doxycycline Monohydrate (Doxycycline Monohydrate 100 Mg Capsule) 100 mg PO Q12H [facility] Last Admin: 02/07/22 08:41 Dose: 100 mg Documented By: DARIO Enoxaparin Sodium (Enoxaparin Sodium 40 Mg/0.4 Ml Syringe) 40 mg SUBCUT Q24H [facility] Last Admin: 02/06/22 23:30 Dose: 40 mg Documented By: MAMI Gabapentin (Gabapentin 300 Mg Capsule) 300 mg PO QID [facility] Last Admin: 02/07/22 08:41 Dose: 300 mg Documented By: DARIO Glucose (Glucose Gel 15 Gm Gel..Gram.) 15 gm PO Q15M PRN; Protocol PRN Reason: per Hypoglycemia Standing Ord. Ceftriaxone Sodium 1 gm/ (Sodium Chloride) 50 mls @ 100 mls/hr IV Q24H [facility] Last Infusion: 02/06/22 19:15 Dose: 0 mls/hr Documented By: MAMI Insulin Glargine (Insulin Glargine,Hum.Rec.Anlog 100 Unit/Ml 10 Ml Vial) 18 unit SUBCUT BEDTIME [facility] Last Admin: 02/06/22 20:16 Dose: 18 unit Documented By: MAMI Insulin Human Lispro (Insulin Lispro 100 Unit/Ml 3 Ml Vial) 0 unit SUBCUT QIDACHS [facility]; Protocol Last Admin: 02/07/22 08:42 Dose: 7 unit Documented By: DARIO Lisinopril (Lisinopril 5 Mg Tablet) 5 mg PO DAILY [facility]; Protocol Last Admin: 02/07/22 09:30 Dose: 5 mg Documented By: DARIO Metoprolol Succinate (Metoprolol Succinate Er 25 Mg Tab.Er.24h) 25 mg PO DAILY [facility]; Protocol Last Admin: 02/07/22 08:40 Dose: 25 mg Documented By: DARIO Non-Formulary Medication (Bromfenac [Prolensa]) 1 drop EYE-BOTH DAILY [facility] Ondansetron HCl (Ondansetron Hcl 4 Mg/2 Ml Vial) 4 mg IVPUSH Q8H PRN PRN Reason: Nausea and Vomiting Prednisone (Prednisone 20 Mg Tablet) 40 mg PO DAILY [facility] Stop: 02/09/22 09:01 Last Admin: 02/07/22 08:41 Dose: 40 mg Documented By: DARIO Sodium Chloride (0.9 % Sodium Chloride Flush 3 Ml Syringe) 3 ml IVFLUSH QSHIFT [facility] Last Admin: 02/07/22 08:42 Dose: 3 ml Documented By: DARIO Vitamin D (Cholecalciferol (Vitamin D3) 25 Mcg Tablet) 50 mcg PO DAILY [facility] Last Admin: 02/07/22 08:41 Dose: 50 mcg Documented By: DARIO Labs CBC & Chem 7: 02/07/22 05:22 02/07/22 05:22 Labs: Laboratory Results - last 24 hr 02/06/22 02/06/22 02/06/22 10:50 15:29 19:32 MCV MCH MCHC RDW Plt Count MPV Absolute Nucleated RBC Nucleated RBC % (auto) Anion Gap Estim Creat Clear Calc Estimated GFR POC Glucose 408 H* 368 H* Random Glucose Estimat Average Glucose Hemoglobin A1c % Calcium Procalcitonin Nasal Screen MRSA (PCR) POSITIVE A Nasal S. aureus Screen POSITIVE A Nasal MRSA/S.aureus Interp SEE NOTE 02/07/22 02/07/22 02/07/22 05:22 05:22 05:22 MCV 91.5 MCH 30.7 MCHC 33.5 RDW 12.6 Plt Count 315 MPV 10.0 Absolute Nucleated RBC 0.000 Nucleated RBC % (auto) 0.0 Anion Gap 13 Estim Creat Clear Calc 87.7 Estimated GFR > 60 POC Glucose Random Glucose 191 H Estimat Average Glucose Hemoglobin A1c % Calcium 8.6 D Procalcitonin 1.85 Nasal Screen MRSA (PCR) Nasal S. aureus Screen Nasal MRSA/S.aureus Interp 02/07/22 02/07/22 02/07/22 05:22 07:10 11:13 MCV MCH MCHC RDW Plt Count MPV Absolute Nucleated RBC Nucleated RBC % (auto) Anion Gap Estim Creat Clear Calc Estimated GFR POC Glucose 236 H 215 H Random Glucose Estimat Average Glucose 154 Hemoglobin A1c % 7.0 Calcium Procalcitonin Nasal Screen MRSA (PCR) Nasal S. aureus Screen Nasal MRSA/S.aureus Interp Microbiology Microbiology Results: Microbiology 02/04/22 19:19 Blood Culture - Preliminary Blood - Venous No growth after 48 hours. 02/04/22 19:19 Blood Culture - Preliminary Blood - Venous No growth after 48 hours. Assessment and Plan (1) Sepsis: Status: Acute Plan hospital d#4 61yo M with HTN, DM2, and asthma presenting with sepsis and hypoxia due to influenza with likely post-influenza bacterial PNA with SHELLEY # pneumonia - doxycycline + ceftriaxone d#4, PCT decreasing, BCx negative, Legionella + pneumococcal antigens pending, MRSA swab positive but clinically improving without MRSA coverage # influenza A - oseltamivir d#4/ # mild intermittent asthma with acute exac - prednisone d#3, prn albuterol # SHELLEY - prerenal, resolved with IV hydration, restart lisinopril today # AHRF - wean O2 as tolerated- 4L->2.5L via NC # HTN - continue metoprolol succinate + lisinopril # DM2 with hyperglycemia, A1c 7 - hold MTF, give basal-bolus insulin- increase dose further # neuropathy - gabapentin # VTE ppx: LMWH # dispo: PT eval tomorrow In my clinical judgment, the patient requires continued inpatient hospitalization for the following reasons: hypoxia, IV ABX Time Spent With Patient Time: Total time managing care of this patient today _40___ minutes. Quality Stroke Does the patient have a stroke diagnosis?: No VTE Prior VTE?: No VTE Risk Level:: Medical - moderate - high VTE Device Contraindication: Treatment Not Indicated VTE Drug Contraindication: N/A - Med Ordered
[2022-02-07 15:39] VITALS: BP 161/74; PULSE 76; RESP 18; TEMP 36.8; O2SAT 96
[2022-02-07 15:55] LABS: Glucose, Whole Blood 335 mg/dL (60-115)
[2022-02-07] MEDS: cefTRIAXone sodium 1 GM in 0.9 % Sodium Chloride 50 ML IV (18:12)
[2022-02-07 19:21] VITALS: BP 163/75; PULSE 77; RESP 18; TEMP 36.9; O2SAT 93
[2022-02-07 19:28] LABS: Glucose, Whole Blood 298 mg/dL (60-115)
[2022-02-07] MEDS: Enoxaparin Sodium 40 MG/0.4 ML SYRINGE SUBCUT (21:10)
[2022-02-07] MEDS: Atorvastatin Calcium 20 MG TABLET PO (21:10)
[2022-02-07] MEDS: Insulin Glargine,Hum.rec.anlog 100 UNIT/ML 10 ML VIAL 18 UNIT SUBCUT (21:11)
[2022-02-08 04:00] VITALS: BP 154/72; PULSE 77; RESP 17; TEMP 37; O2SAT 93
[2022-02-08 07:34] LABS: Glucose, Whole Blood 154 mg/dL (60-115)
[2022-02-08 07:40] VITALS: BP 168/76; PULSE 84; RESP 20; TEMP 37.8; O2SAT 93
[2022-02-08] MEDS: Cholecalciferol (Vitamin D3) 25 MCG TABLET 50 MCG PO (07:52)
[2022-02-08] MEDS: amLODIPine Besylate 5 MG TABLET PO (07:53)
[2022-02-08] MEDS: lisinopriL 5 MG TABLET PO (07:53)
[2022-02-08] MEDS: predniSONE 20 MG TABLET 40 MG PO (07:53)
[2022-02-08] MEDS: Insulin Lispro 100 UNIT/ML 3 ML VIAL SUBCUT ×2 (07:53→11:52)
[2022-02-08] MEDS: Acetaminophen 325 MG TABLET 650 MG PO (07:54)
[2022-02-08] MEDS: Gabapentin 300 MG CAPSULE PO ×2 (07:54→11:52)
[2022-02-08] MEDS: 0.9 % Sodium Chloride Flush 3 ML SYRINGE IVFLUSH (07:54)
[2022-02-08] MEDS: Metoprolol Succinate ER 25 MG TAB.ER.24H PO (07:54)
[2022-02-08] MEDS: Doxycycline Monohydrate 100 MG CAPSULE PO (07:54)
[2022-02-08 08:35] VITALS: PULSE 94; PULSE 96; O2SAT 94
[2022-02-08 10:59] LABS: Glucose, Whole Blood 265 mg/dL (60-115)
--- NOTE | 2022-02-08 13:17 | MHC.CM.PN ---
EMR REVIEWED, PER HOSPITALIST ANTIC PT WILL BE DISCHARGED HOME NO SERVICES TODAY, PT WILL CALL FAMILY FOR TRANSPORT.
--- NOTE | 2022-02-08 14:13 | PM.DS ---
DS: Providers Provider Date of Service: 02/08/22 Date of admission: 02/04/22 20:37 Date of discharge: 02/08/22 Primary care physician: Domo Molina MD DS: Diagnosis Discharge Diagnosis (1) Sepsis: Status: Acute (2) SHELLEY (acute kidney injury): Status: Acute (3) Influenza A: Status: Acute (4) Pneumonia: Status: Acute (5) Acute respiratory failure with hypoxia: Status: Acute DS: Summary Hospital Course Hospital Course: from admission History and Physical by hospitalist Lisa Jeffries MD, 02/04/22: 61-year-old male? with past medical history of diabetes, history of right carotid? endarterectomy, hypertension, migraines, peripheral neuropathy, presents to the hospital with complaints of poor oral intake, productive cough, fatigue,chills, generalized body aches, for the past 1 week.? Patient denies any nausea vomiting, no diarrhea constipation, no urinary symptoms and no lower extremity edema.? No recent sick contacts.? On arrival to the ED patient hemodynamically stable with a temp of 99.9 degrees, heart rate of 110, satting 94% on room air Labs are significant for WBC count of 20.2, hemoglobin 13, left shift, creatinine of? 2.48 with a baseline around 0.8, Mag of 1.5, influenza a positive Chest x-ray reviewed shows newly developed mild interstitial opacification in the right upper lobe and left perihilar? region concerning for interstitial pneumonitis This 61yo M with HTN, DM2, and asthma was admitted with sepsis and hypoxia due to influenza with post-influenza bacterial PNA and SHELLEY. He was placed on supplemental oxygen and weaned to room air. He was treated with doxycycline and ceftriaxone. Blood cultures were negative. MRSA swab positive but the patient clinically improved without anti-MRSA coverage. He was given 5 days of oseltamivir. He was also treated with prednisone. Prerenal SHELLEY resolved with IV fluid hydration. He was discharged home with 3 more days of antibiotic treatment with doxycycline and cefuroxime. Time Spent with Patient Time attestation: Total time managing care of this patient today _41___ minutes. Discharge coordination time: Greater than 30 minutes Quality: Safe Use of Opioids Does Pt have an Active Cancer Diagnosis on the Problem List?: No Quality: Stroke Does the patient have a stroke diagnosis?: No Physical Exam Vital Signs: Vital Signs: Last Vital Signs Temp 100.1 F 02/08/22 07:40 Pulse 84 02/08/22 07:40 Resp 20 02/08/22 07:40 BP 168/76 H 02/08/22 07:40 Pulse Ox 93 02/08/22 07:40 O2 Del Method 02/08/22 07:40 O2 Flow Rate 3 02/07/22 15:39 Oxygen Flow Rate 2 02/05/22 02:18 BMI result Body Mass Index 31.6 Gen: in no acute distress HEENT: sclera anicteric, moist mucus membranes Neck: supple Lungs: clear to auscultation bilaterally Heart: regular rate and rhythm, no murmurs Abd: soft, non-tender, non-distended Ext: no edema Skin: warm/well-perfused Neuro: alert and oriented x3, no focal findings Psych: appropriate affect DS: Data Data Completed and Pending Completed studies during hospitalization [Text1]: Laboratory Results WBC 25.3 X10*3/uL (4.8-10.8) H 02/07/22 05:22 RBC 3.65 X10*6/uL (4.60-5.80) L 02/07/22 05:22 Hgb 11.2 g/dl (14.0-18.0) L 02/07/22 05:22 Hct 33.4 % (42.0-52.0) L 02/07/22 05:22 MCV 91.5 fL (80.0-98.0) 02/07/22 05:22 MCH 30.7 pg (27.0-33.0) 02/07/22 05:22 MCHC 33.5 g/dl (31.0-36.0) 02/07/22 05:22 RDW 12.6 % (11.0-16.0) 02/07/22 05:22 Plt Count 315 X10*3/uL (160-400) 02/07/22 05:22 MPV 10.0 fL (9.4-12.4) 02/07/22 05:22 Immature Gran % (Auto) Cancelled 02/05/22 06:29 Neut % (Auto) Cancelled 02/05/22 06:29 Lymph % (Auto) Cancelled 02/05/22 06:29 Major % (Auto) Cancelled 02/05/22 06:29 Eos % (Auto) Cancelled 02/05/22 06:29 Baso % (Auto) Cancelled 02/05/22 06:29 Lymph # (Auto) Cancelled 02/05/22 06:29 Major # (Auto) Cancelled 02/05/22 06:29 Eos # (Auto) Cancelled 02/05/22 06:29 Baso # (Auto) Cancelled 02/05/22 06:29 Abs Immat Gran (auto) Cancelled 02/05/22 06:29 Absolute Neuts (auto) Cancelled 02/05/22 06:29 Absolute Nucleated RBC 0.000 X10*3/uL (0.0-0.012) 02/07/22 05:22 Nucleated RBC % (auto) 0.0 /100WBC (0.0-0.2) 02/07/22 05:22 Neutrophils % (Manual) 80 % (45-73) H 02/05/22 06:29 Band Neutrophils % 6 % (3-5) H 02/05/22 06:29 Lymphocytes % (Manual) 4 % (20-40) L 02/05/22 06:29 Monocytes % (Manual) 10 % (2-11) 02/05/22 06:29 Abs Neuts (Manual) 17.9 X10*3/uL (2.0-8.3) H 02/05/22 06:29 Lymphocytes # (Manual) 0.8 X10*3/uL (1.2-4.9) L 02/05/22 06:29 Monocytes # (Manual) 2.1 X10*3/uL (0.1-1.2) H 02/05/22 06:29 Platelet Estimate NORMAL (NORMAL) 02/05/22 06:29 Plt Morphology Comment NORMAL 02/05/22 06:29 RBC Morphology NORMAL 02/05/22 06:29 Sodium 138 mmol/L (135-145) 02/07/22 05:22 Potassium 4.3 mmol/L (3.3-5.1) 02/07/22 05:22 Chloride 107 mmol/L (96-108) 02/07/22 05:22 Carbon Dioxide 22 mmol/L (22-29) 02/07/22 05:22 Anion Gap 13 (12-20) 02/07/22 05:22 BUN 27 mg/dL (9-16) H 02/07/22 05:22 Creatinine 0.87 mg/dL (0.5-1.4) 02/07/22 05:22 Estim Creat Clear Calc 87.7 02/07/22 05:22 Estimated GFR > 60 02/07/22 05:22 POC Glucose 265 mg/dL (60-115) H 02/08/22 10:56 Random Glucose 191 mg/dL (60-115) H 02/07/22 05:22 Estimat Average Glucose 154 mg/dL 02/07/22 05:22 Hemoglobin A1c % 7.0 % 02/07/22 05:22 Lactic Acid 2.0 mmol/L (0.5-2.0) 02/04/22 19:19 Calcium 8.6 mg/dL (8.4-10.2) D 02/07/22 05:22 Magnesium 2.0 mg/dL (1.6-2.6) 02/06/22 05:27 Total Bilirubin 0.8 mg/dL (0.0-1.0) 02/04/22 17:22 AST 16 U/L (5-37) 02/04/22 17:22 ALT 15 U/L (0-40) 02/04/22 17:22 Alkaline Phosphatase 65 U/L (39-117) 02/04/22 17:22 C-Reactive Protein 37.67 mg/dL (< or = 0.50) H 02/05/22 06:29 Total Protein 7.2 g/dL (6.5-8.0) 02/04/22 17:22 Albumin 3.9 g/dL (3.5-5.0) 02/04/22 17:22 Procalcitonin 1.85 ng/mL 02/07/22 05:22 Nasal Screen MRSA (PCR) POSITIVE (Negative) A 02/06/22 10:50 Nasal S. aureus Screen POSITIVE (Negative) A 02/06/22 10:50 Nasal MRSA/S.aureus Interp SEE NOTE 02/06/22 10:50 Influenza Type A (PCR) POSITIVE (Negative) A 02/04/22 17:22 Influenza Type B (PCR) NEGATIVE (Negative) 02/04/22 17:22 RSV RNA Qual (PCR) NEGATIVE (Negative) 12/31/22 17:22 SARS-CoV-2 RNA (RT-PCR) NEGATIVE (Negative) 02/04/22 17:22 Impressions Chest X-Ray 02/04/22 17:36 IMPRESSION: Newly developed mild interstitial opacification right upper lobe and left parahilar region concerning for interstitial pneumonitis. No dense lobar consolidation or pleural effusion. Labs on day of discharge: Laboratory Results - last 24 hr 02/07/22 02/07/22 02/08/22 15:46 19:24 07:25 POC Glucose 335 H 298 H 154 H 02/08/22 10:56 POC Glucose 265 H Preliminary micro results at discharge 02/04/22 19:19 Blood Culture - Preliminary Blood - Venous No growth after 48 hours. 02/04/22 19:19 Blood Culture - Preliminary Blood - Venous No growth after 48 hours. Discharge Plan Discharge Anticipated Discharge Date/Time: 02/08/22 14:10 Patient Disposition: Home, Self-Care Discharge Diagnosis: hypoxia due to influenza with bacterial pneumonia, acute kidney injury Referrals: Domo Molina MD [Primary Care Provider] - 1 Week Discharge Medications: New prednisone 20 mg Tablet 40 mg PO DAILY Qty: 2 0RF doxycycline monohydrate 100 mg Capsule 100 mg PO Q12H Qty: 6 0RF cefuroxime axetil 500 mg tablet 500 mg PO BID Qty: 6 0RF Continued amlodipine 5 mg tablet 5 mg PO DAILY Qty: 30 5RF lisinopril 5 mg tablet 5 mg PO DAILY Qty: 90 3RF glipizide 10 mg Tablet 10 mg PO BID cholecalciferol (vitamin D3) [Vitamin D3] 50 mcg (2,000 unit) Tablet 50 mcg PO DAILY metoprolol succinate 25 mg tablet extended release 24 hr 25 mg PO DAILY Qty: 90 1RF Levemir FlexTouch U-100 Insuln 100 unit/mL (3 mL) insulin pen 14 unit subcut BEDTIME metformin 500 mg tablet 1,000 mg PO BID gabapentin 300 mg capsule 300 mg PO QID Prolensa 0.07 % drops 1 drp ophthalmic (eye) DAILY Rx Instructions: instill in both eyes albuterol sulfate 90 mcg/actuation HFA aerosol inhaler 2 puff PO QID PRN (Reason: Shortness Of Breath Or Wheezing) Januvia 100 mg tablet 100 mg PO DAILY hydrochlorothiazide 25 mg tablet 25 mg PO DAILY atorvastatin 20 mg tablet 20 mg PO BEDTIME Discharge Orders: Discharge Order (Routine); Ordered 02/08/22 Ordered By: Fadia Stokes Diet: Diabetic diet Activity on Discharge: As tolerated Stand Alone Forms: Patient Portal Discharge page Care Plan Goals: recovery from pneumonia and influenza Health Concerns: hypoxia due to influenza with bacterial pneumonia, acute kidney injury Plan of Treatment: prednisone 40 mg once daily on 02/09/22, then stop doxycycline 100 mg twice daily PLUS cefuroxime 500 mg twice daily for 3 more days SHELLEY resolved Please follow up with your primary care doctor within 1 week. Return to the hospital if you experience recurrent or worsening symptoms. Assessment: See Discharge Summary.
[2022-02-11 05:49] LABS: Legionella Ag Urine Not Detected (Not Detected)
[2022-02-12 10:13] LABS: Strep Pneumo Ag urine Not Detected (Not Detected)
== END 2022-02-08 15:40 | disposition home or self-care (01) | DRG 871 ==
LOC: HO.ED 21:14 → HO.EDOVER 21:15 → HO.S3 02-05 17:53
PROVIDERS: Physician Assistant Medical; Admitting Provider Internal Medicine; Emergency Provider Internal Medicine; PCP Internal Medicine; Visit Provider Family Medicine
DX: A41.9 Sepsis, unspecified organism (principal); J10.08 Influenza due to other identified influenza virus with other specified pneumonia; J96.01 Acute respiratory failure with hypoxia; J15.9 Unspecified bacterial pneumonia; N17.9 Acute kidney failure, unspecified; J45.21 Mild intermittent asthma with (acute) exacerbation; I69.398 Other sequelae of cerebral infarction; R20.0 Anesthesia of skin; M10.9 Gout, unspecified; E78.00 Pure hypercholesterolemia, unspecified; E11.65 Type 2 diabetes mellitus with hyperglycemia; E86.0 Dehydration; E11.42 Type 2 diabetes mellitus with diabetic polyneuropathy; G43.909 Migraine, unspecified, not intractable, without status migrainosus; Z87.891 Personal history of nicotine dependence; Z79.4 Long term (current) use of insulin; Z79.84 Long term (current) use of oral hypoglycemic drugs; Z79.899 Other long term (current) drug therapy
CPT/HCPCS: 0241U; 36415; 71046; 71250; 80048; 80053; 82947; 83036; 83605; 83735; 84145; 85007; 85025; 85027; 86140; 87040; 87449; 87640; 87641; 87899; 97161; 99285; J0456; J0696; J1650; J3475

== ENCOUNTER 2022-04-25 12:55 | Outpatient (REF) | payer OTHER, SELFPAY ==
--- NOTE | ~2022-04-25 | US_ITS ---
EXAMINATION: US EXTRACRANIAL CAROTID DUPLEX, BILATERAL CLINICAL INFORMATION: CVA. COMPARISON: 12/15/2021. TECHNIQUE: Real-time ultrasound and Doppler techniques (integrating B-mode 2-D vascular images, Doppler spectral analysis and color-flow Doppler imaging) were utilized to interrogate the extracranial carotid arteries, the vertebral arteries and proximal subclavian arteries bilaterally. The degree of stenosis is determined by criteria similar to NASCET. FINDINGS: RIGHT SIDE: 1. There is mild atherosclerotic plaque seen in the bifurcation/proximal ICA region. 2. The common carotid artery PSV proximally is 127 cm/s and distally 149 cm/s. 3. The proximal internal carotid artery velocities are 82 cm/s systolic and 19 cm/s diastolic. 4. The proximal external carotid artery PSV is 137 cm/s. 5. The vertebral artery shows antegrade flow. 6. The subclavian artery waveforms are normal. LEFT SIDE: 1. There is [id number] atherosclerotic plaque seen in the bifurcation/proximal ICA region. 2. The common carotid artery PSV proximally is 158 cm/s and distally 307 cm/s. 3. The proximal internal carotid artery velocities are 120 cm/s systolic and 26 cm/s diastolic. 4. The proximal external carotid artery PSV is 181 cm/s. 5. The vertebral artery shows antegrade flow. 6. The subclavian artery waveforms are normal. US/US carotid duplex BI IMPRESSION: 1. RIGHT: Minimal, non-hemodynamically significant stenosis of the proximal right internal carotid artery corresponding to a 0-49% stenosis by velocity criteria. No interval change in the classic disease since the prior study of 12/15/2021. 2. LEFT: There is a greater than 50% diameter reduction seen in the mid left common carotid artery with a peak systolic velocity of 325 cm/s. Moderate, hemodynamically significant stenosis of the proximal right internal carotid artery corresponding to a 50-79% stenosis by velocity criteria. Compared to the prior study from 12/15/2021, these findings are unchanged.
== END 2022-04-25 12:56 | disposition home or self-care (01) ==
LOC: HO.US 12:55
PROVIDERS: Visit Provider Surgery Vascular Surgery
DX: I65.23 Occlusion and stenosis of bilateral carotid arteries (principal)
CPT/HCPCS: 93880

== ENCOUNTER → 2022-06-06 12:49 | Outpatient (BNVA) | payer OTHER, SELFPAY | PROVIDERS: PCP Internal Medicine; Visit Provider Surgery Vascular Surgery | DX: I65.21 Occlusion and stenosis of right carotid artery (principal); I83.11 Varicose veins of right lower extremity with inflammation; E11.42 Type 2 diabetes mellitus with diabetic polyneuropathy; Z87.891 Personal history of nicotine dependence; Z79.82 Long term (current) use of aspirin; Z79.899 Other long term (current) drug therapy | CPT/HCPCS: 99212 ==

== ENCOUNTER 2022-06-14 12:35 | Outpatient (REF) | payer OTHER, SELFPAY ==
--- NOTE | ~2022-06-14 | US_ITS ---
EXAMINATION: US LOWER EXTREMITY VENOUS (REFLUX EXAM), BILATERAL CLINICAL INDICATION: Bilateral lower extremity venous insufficiency, varicose veins COMPARISON: None. TECHNIQUE: Color flow triplex imaging and compression Doppler was performed to evaluate both the deep and the superficial systems bilaterally. To evaluate the superficial system, the examination was performed in the upright position. Color-flow Doppler ultrasound and compression ultrasound were utilized. In addition, maneuvers were utilized to demonstrate reflux. FINDINGS: 1. DEEP VENOUS ULTRASOUND OF THE RIGHT LOWER EXTREMITY: Common Femoral Vein: Compressible, normal respiratory variation and augmented flow. Femoral Vein: Compressible, normal color flow and augmentation. Popliteal Vein: Compressible, normal augmentation. Deep Reflux: There is no evidence of reflux in the deep system in either the common femoral vein or the popliteal vein. There is no evidence of a Dunn's cyst. 2. SUPERFICIAL ULTRASOUND WITH DOPPLER OF RIGHT LOWER EXTREMITY: GREAT SAPHENOUS VEIN: Saphenofemoral Junction: 0.5 cm; Reflux: 0 ms Proximal Thigh: 0.6 cm; Reflux: 0 ms Mid Thigh: 0.4 cm; Reflux: 0 ms Above Knee: 0.4 cm; Reflux: 0 ms At Knee: 0.4 cm; Reflux: 1408 ms Below Knee: 0.4 cm; Reflux: 0 ms Mid Calf: 0.3 cm; Reflux: 0 ms Ankle: 0.3 cm; Reflux: 0 ms DUPLICATED MEDIAL GREAT SAPHENOUS VEIN: Diameter: None Imaged Reflux: NA DUPLICATED LATERAL GREAT SAPHENOUS VEIN: Diameter: None Imaged Reflux: NA SMALL SAPHENOUS VEIN: Proximal: 0.4 cm; Reflux: 0 ms Distal: 0.2 cm; Reflux: 0 ms VEIN OF GIACOMINI: None Imaged. PERFORATORS: Location: Proximal calf Size: 0.2 cm Reflux: NA VARICOSITIES: Location: Multiple thigh varicosities Size: 0.3-0.4 cm Reflux: [id number] 3. DEEP VENOUS ULTRASOUND OF THE LEFT LOWER EXTREMITY: Common Femoral Vein: Compressible, normal respiratory variation and augmented flow. Femoral Vein: Compressible, normal color flow and augmentation. Popliteal Vein: Compressible, normal augmentation. Deep Reflux: There is no evidence of reflux in the deep system in either the common femoral vein or the popliteal vein. There is no evidence of a Dunn's cyst. 4. SUPERFICIAL ULTRASOUND WITH DOPPLER OF LEFT LOWER EXTREMITY: GREAT SAPHENOUS VEIN: Saphenofemoral Junction: 0.5 cm; Reflux: 0 ms Proximal Thigh: 0.4 cm; Reflux: 0 ms Mid Thigh: 0.4 cm; Reflux: 0 ms Above Knee: 0.3 cm; Reflux: 0 ms At Knee: 0.3 cm; Reflux: 0 ms Below Knee: 0.2 cm; Reflux: 552 ms Mid Calf: 0.3 cm; Reflux: 0 ms Ankle: 0.3 cm; Reflux: 0 ms DUPLICATED MEDIAL GREAT SAPHENOUS VEIN: Diameter: None Imaged Reflux: NA DUPLICATED LATERAL GREAT SAPHENOUS VEIN: Diameter: None Imaged Reflux: NA SMALL SAPHENOUS VEIN: Proximal: 0.3 cm; Reflux: 0 ms Distal: 0.2 cm; Reflux: 0 ms VEIN OF GIACOMINI: None Imaged. PERFORATORS: Location: [place] Size: 0.2 cm Reflux: NA VARICOSITIES: Location: None Imaged Size: NA Reflux: NA US/US venous duplex LE BI IMPRESSION: 1. Right great saphenous venous insufficiency at the level of the knee. 2. Left great saphenous venous insufficiency below the knee. 3. Right lower extremity varicosities.
== END 2022-06-14 12:36 | disposition home or self-care (01) ==
LOC: HO.US 12:35
PROVIDERS: PCP Internal Medicine; Visit Provider Surgery Vascular Surgery
DX: I83.11 Varicose veins of right lower extremity with inflammation (principal)
CPT/HCPCS: 93970

== ENCOUNTER → 2022-07-11 14:28 | Outpatient (BNVA) | payer OTHER, MEDICAID, SELFPAY | PROVIDERS: PCP Internal Medicine; Visit Provider Surgery Vascular Surgery | DX: I83.11 Varicose veins of right lower extremity with inflammation (principal) | CPT/HCPCS: 99212 ==

== ENCOUNTER 2022-08-18 10:11 | Outpatient (AMB) | payer OTHER, SELFPAY ==
--- NOTE | 2022-08-18 10:20 | MHC.OFFVIS ---
Intake Intake Visit Reasons: Right LE Micro Intake Note: Patient is here for a right leg micro Allergies No Known Allergies Allergy (Verified 08/18/22 10:20) PFSH Medical History Carotid stenosis Diabetes Elevated cholesterol Gout History of CVA (cerebrovascular accident) HTN (hypertension) Left eye symptoms Migraines Peripheral neuropathy Positive cardiac stress test Surgical History H/O endarterectomy History of ankle surgery Hx of bilateral hip replacements Hx of colonoscopy Family History Father No problems noted. Mother Heart disease Social History Household Members: Spouse Housing: Other Housing Other:: mobile home Are you a primary health careers instructor to a significant other at home: No Do you presently have visiting nurse or other home services: No 75 years or older and lives alone: No Alcohol intake: never Patient Tobacco Use Status: Former Tobacco user Quit Date: 6 years ago Tobacco use type: Cigarette Cigarette Packs Per Day: 3 Cigarettes Per Day: 60.0 Years Smoked: 45 e-Cigarette/Vaping Use: Former Use Second Hand Smoke Exposure: Yes Substance Use Type: Marijuana service: No Current occupational status: employed Office Procedures Vascular Office Procedure Details Details: Diagnosis: Right Leg varicose veins with inflammation Procedure: Right leg Microphlebectomy Anesthesia: Local Infiltration 10 cc, Tumescent: 0 cc. Varicose veins were marked in the standing position on the right leg and the patient was then placed in the prone position. The right lower extremity was prepared and draped to allow knee flexion in the sterile field. The patient had large superficial varicose veins with significant symptoms of pain. It was therefore determined to perform microphlebectomies of the clusters of varicose veins. The patient had bulging varicose veins which were previously marked in the standing position. A small stab incision was made longitudinally directly overlying the varicose vein in the calf and the varicose vein was grasped with a hemostat aided by a vein hook. It was then dissected as far proximally and distally as possible and avulsed. A total of 22 stab incisions were made and the procedure of stab phlebectomies was repeated 22 times. Hemostasis was checked and stab incision sites were closed with steri-strips and sterile dressing was given with gauze and krilex wrap followed by an lynda bandage. There were no complications and blood loss was minimal. Post-Op instructions were given and a follow-up appointment was recommended. 13611 - Stab Phlebectomy >20 All charges added?: Procedure code (CPT) selection complete Coding Level of Care Code Procedure Only Diagnoses CPT Codes Details - Vascular 6: 58230 - Stab Phlebectomy >20 ([id number])
== END 2022-08-18 11:01 | disposition home or self-care (01) ==
PROVIDERS: PCP Internal Medicine; Visit Provider Surgery Vascular Surgery
DX: I83.11 Varicose veins of right lower extremity with inflammation (principal)
CPT/HCPCS: 37766

== ENCOUNTER → 2022-08-18 10:11 | Outpatient (BNVA) | payer OTHER, SELFPAY | PROVIDERS: PCP Internal Medicine; Visit Provider Surgery Vascular Surgery | DX: I83.11 Varicose veins of right lower extremity with inflammation (principal) | CPT/HCPCS: 37766 ==

== ENCOUNTER 2022-08-24 06:50 | Outpatient (REF) | payer OTHER, SELFPAY ==
[2022-08-24 07:02] LABS: MANUAL DIFF FLAG NO
[2022-08-24 09:12] LABS: Basophils Absolute Auto 0.1 X10*3/uL (0.0-0.2); Basophils Percent Auto 0.6 % (0-2); Eosinophils Percent Auto 10.5 % (0-4); Hematocrit 40.2 % (42.0-52.0); Imm Gran Abs Auto 0.06 X10*3/uL (0.00-0.03); Imm Gran Pct Auto 0.6 % (0.0-0.4); Lymphocytes Absolute Auto 2.2 X10*3/uL (1.2-4.9); Lymphocytes Percent Auto 22.9 % (20-40); Mean Corpuscular HGB Conc 32.3 g/dl (31.0-36.0); Mean Corpuscular Hemoglobin 30.7 pg (27.0-33.0); Mean Platelet Volume 9.9 fL (9.4-12.4); Monocytes Absolute Auto 0.8 X10*3/uL (0.1-1.2); Monocytes Percent Auto 8.7 % (2-11); Neutrophils Absolute Auto 5.4 x10*3/uL (2.0-8.3); Neutrophils Percent Auto 56.7 % (45-73); Platelet Count 272 X10*3/uL (160-400); Red Blood Count 4.23 X10*6/uL (4.60-5.80); Red Cell Distribution Width 13.2 % (11.0-16.0); White Blood Count 9.5 X10*3/uL (4.8-10.8)
[2022-08-24 10:05] LABS: Alanine Aminotransferase 16 U/L (0-40); Alkaline Phosphatase 55 U/L (39-117); Anion Gap 13 (12-20); Aspartate Amino Transferase 17 U/L (5-37); Bilirubin Total 0.2 mg/dL (0.0-1.0); Blood Urea Nitrogen 34 mg/dL (9-16); Carbon Dioxide 24 mmol/L (22-29); Chloride 106 mmol/L (96-108); Cholesterol 135 mg/dL; Estimated Glomerular Filt Rate > 60; Glucose Fasting 151 mg/dL (60-99); HDL Cholesterol 26 mg/dL; LDL Cholesterol Calculated 41 mg/dl; Potassium 4.6 mmol/L (3.3-5.1); Sodium 138 mmol/L (135-145); Total Protein 7.2 g/dL (6.5-8.0); Triglycerides 344 mg/dL
[2022-08-24 10:30] LABS: Prostate Specific Antigen 0.19 ng/mL (<0.05-4.0)
[2022-08-24 10:54] LABS: Estimated Average Glucose 146 mg/dL; Hemoglobin A1C 165.1931 umol/L; Hemoglobin A1c % 6.7 %
[2022-08-24 11:47] LABS: Creatinine Urine 63.67 mg/dL; Microalbum/Creatinine Ratio Ur 826.1 ug/mg cr
== END 2022-08-24 06:51 | disposition home or self-care (01) ==
LOC: HO.LAB 06:50
PROVIDERS: PCP Internal Medicine; Visit Provider Internal Medicine
DX: Z12.5 Encounter for screening for malignant neoplasm of prostate (principal); I10 Essential (primary) hypertension; E78.00 Pure hypercholesterolemia, unspecified; E11.9 Type 2 diabetes mellitus without complications; R35.1 Nocturia; Z86.73 Personal history of transient ischemic attack (TIA), and cerebral infarction without residual deficits
CPT/HCPCS: 36415; 80053; 80061; 82043; 83036; 84153; 85025

== ENCOUNTER 2022-12-01 07:06 | Outpatient (REF) | payer OTHER, SELFPAY ==
[2022-12-01 08:34] LABS: Estimated Average Glucose 137 mg/dL; Hemoglobin A1c % 6.4 % (<6.0)
[2022-12-01 08:50] LABS: Alanine Aminotransferase 12 U/L (0-40); Albumin Level 4.2 g/dL (3.5-5.0); Alkaline Phosphatase 45 U/L (39-117); Anion Gap 13 (12-20); Aspartate Amino Transferase 19 U/L (5-37); Bilirubin Total 0.3 mg/dL (0.0-1.0); Blood Urea Nitrogen 35 mg/dL (9-16); Carbon Dioxide 24 mmol/L (22-29); Chloride 108 mmol/L (96-108); Cholesterol 123 mg/dL (<200); Estimated Glomerular Filt Rate 48; Glucose Fasting 67 mg/dL (60-99); HDL Cholesterol 33 mg/dL (>40); LDL Cholesterol Calculated 65 mg/dL (<100); Potassium 4.7 mmol/L (3.3-5.1); Sodium 140 mmol/L (135-145); Total Protein 7.4 g/dL (6.5-8.0); Triglycerides 127 mg/dL (<150)
== END 2022-12-01 07:07 | disposition home or self-care (01) ==
LOC: HO.LAB 07:06
PROVIDERS: PCP Internal Medicine; Visit Provider Internal Medicine
DX: E11.9 Type 2 diabetes mellitus without complications (principal); E78.5 Hyperlipidemia, unspecified; N18.9 Chronic kidney disease, unspecified
CPT/HCPCS: 36415; 80053; 80061; 83036

== ENCOUNTER 2023-01-11 12:26 | Outpatient (AMB) | payer OTHER, SELFPAY ==
--- NOTE | 2023-01-11 12:54 | MHC.OFFVIS ---
Intake Intake Visit Reasons: New Pt - Left Hip Pain - HX of SALUD Intake Note: Curtis is a 62 year old male who presnets today as a new patient, to re-establish care for the left hip. He reports that he is having bilateral lower back pain. Hx of Left SALUD 07/25/2016 & Right SALUD 03/14/2016 Allergies No Known Allergies Allergy (Verified 01/11/23 13:01) HPI New Pt - Left Hip Pain - HX of SALUD HPI Details Curtis is a 62 year old man who presents with complaints of low back pain. He complains of pain in his lower back which radiates into his hips. He complains of a burning pain that radiates down his left leg. He denies any numbness or tingling, and denies any groin pain. He says his pain is preventing him from sleeping properly at night. He is concerned that something may have shifted in his hip, and he wants to make sure there is nothing wrong. He has a hx of Left SALUD 07/25/16 & Right SALUD 03/14/16. [facility] Medical History (Updated 01/13/23 @ 10:36 by aKm Franco MD) Positive cardiac stress test Left eye symptoms Gout Peripheral neuropathy Carotid stenosis History of CVA (cerebrovascular accident) Migraines Diabetes Elevated cholesterol HTN (hypertension) Surgical History (Updated 01/13/23 @ 10:36 by Kam Franco MD) History of right hip replacement (03/14/16) History of left hip replacement (07/25/16) H/O endarterectomy Hx of colonoscopy History of ankle surgery Family History Father No problems noted. Mother Heart disease Social History Household Members: Spouse Housing: Other Housing Other:: mobile home Are you a primary occasional caregiver to a significant other at home: No Do you presently have visiting nurse or other home services: No 75 years or older and lives alone: No Alcohol intake: never Patient Tobacco Use Status: Former Tobacco user Quit Date: 6 years ago Tobacco use type: Cigarette Cigarette Packs Per Day: 3 Cigarettes Per Day: 60.0 Years Smoked: 45 e-Cigarette/Vaping Use: Former Use Second Hand Smoke Exposure: Yes Substance Use Type: Marijuana service: No Current occupational status: employed Review of Systems Const All systems reviewed & are unremarkable except as noted in HPI and below Physical Exam Const General: no acute distress, alert and awake Orientation/consciousness: patient oriented x3 HEENT Head: Yes normocephalic and Yes atraumatic Eyes EOM: EOMs intact bilaterally Resp Effort & Inspection: normal respiratory effort and able to speak in complete sentences Cardio Jugular venous distension: no JVD Skin General skin exam: turgor normal Rashes: no rashes Neuro General: patient oriented x3 Extrem Other: pain localizes of lumbar spine full painless ROM bilateral hipos nl gait Psych Appearance: grossly normal Affect: normal affect Attitude: cooperative Results Reviewed Results Reviewed: I personally reviewed relevant radiographs Bileraral total hip arthroplasty in expected post operative position with no hardware complications or evidence of loosening Assessment & Plan Assessment & Plan (1) Status post total hip replacement, bilateral: Code(s): Z96.643 - Presence of artificial hip joint, bilateral Plan: Doing well clinically and radiographically (2) Low back pain: Code(s): M54.50 - Low back pain, unspecified Plan: Low back pain without radiations. No evidence of hip pathology. Discussed referral to pain. Plan Scribed for Kam Franco MD by Khanh Reece, medical transcription editor, on 01/11/23 at 1:10 PM, EST. Orders: Orders XR pelvis 1-2V 01/11/23 M25.559 - Pain in unspecified hip Referrals Pain Management Referral M54.50 - Low back pain, unspecified Coding Level of Care Code Est Pt Level 3 (97775) Diagnoses Status post total hip replacement, bilateral Z96.643 Low back pain M54.50
== END 2023-01-11 13:07 | disposition home or self-care (01) ==
PROVIDERS: PCP Internal Medicine; Visit Provider Orthopaedic Surgery
DX: M54.50 Low back pain, unspecified (principal); Z96.643 Presence of artificial hip joint, bilateral
CPT/HCPCS: 99213

== ENCOUNTER 2023-01-11 12:26 | Outpatient (REF) | payer OTHER, MEDICAID, SELFPAY ==
--- NOTE | ~2023-01-11 | XR_ITS ---
EXAMINATION: XR PELVIS CLINICAL INFORMATION: Pain in unspecified hip. COMPARISON: MRI lumbar spine 05/25/2017. Radiographs left hip 04/30/2017. TECHNIQUE: 2 AP views of the pelvis. FINDINGS: Redemonstration of bilateral total hip arthroplasties. Hardware appears intact. Alignment appears similar. Extensive vascular calcifications. Surgical clips overlie the scrotal region. XR/XR pelvis 1-2V IMPRESSION: Bilateral total hip arthroplasties appear intact. Correlation with clinical exam recommended to determine further management. If there is concern for fracture or other underlying pathology, MRI could be obtained for further evaluation.
== END 2023-01-11 12:27 | disposition home or self-care (01) ==
LOC: HO.HOSX 12:26
PROVIDERS: PCP Internal Medicine; Visit Provider Orthopaedic Surgery
DX: M25.552 Pain in left hip (principal); M79.605 Pain in left leg; M54.50 Low back pain, unspecified; Z96.643 Presence of artificial hip joint, bilateral
CPT/HCPCS: 72170; 99212

== ENCOUNTER 2023-01-18 07:10 | Outpatient (REF) | payer OTHER, SELFPAY ==
[2023-01-18 08:13] LABS: Anion Gap 13 (12-20); Blood Urea Nitrogen 46 mg/dL (9-16); Calcium 10.2 mg/dL (8.4-10.2); Carbon Dioxide 24 mmol/L (22-29); Chloride 105 mmol/L (96-108); Estimated Glomerular Filt Rate 49; Glucose Random 131 mg/dL (60-115); Potassium 5.3 mmol/L (3.3-5.1); Sodium 137 mmol/L (135-145)
== END 2023-01-18 07:11 | disposition home or self-care (01) ==
LOC: HO.LAB 07:10
PROVIDERS: PCP Internal Medicine; Visit Provider Internal Medicine
DX: I12.9 Hypertensive chronic kidney disease with stage 1 through stage 4 chronic kidney disease, or unspecified chronic kidney disease (principal); N18.9 Chronic kidney disease, unspecified; N17.9 Acute kidney failure, unspecified; I25.10 Atherosclerotic heart disease of native coronary artery without angina pectoris; M54.50 Low back pain, unspecified; M54.16 Radiculopathy, lumbar region; M47.816 Spondylosis without myelopathy or radiculopathy, lumbar region
CPT/HCPCS: 36415; 80048; 99202

== ENCOUNTER 2023-01-18 12:55 | Outpatient (AMB) | payer OTHER, SELFPAY ==
[2023-01-18 13:11] VITALS: BP 165/75; PULSE 64; RESP 18; BMI 31.2
--- NOTE | 2023-01-18 13:11 | MHC.OFFVIS ---
Intake Vital Signs 01/18/23 13:11 Height 5 ft 6 in Weight 193 lb 4 oz BMI 31.2 BP 165/75 H Blood Pressure Location Lt brachial Position Sitting Respiration 18 Pulse 64 Pulse Source Pulse Oximeter Intake Visit Reasons: Low Back Pain, Unspecified Allergies No Known Allergies Allergy (Verified 01/18/23 13:10) HPI HPI Comments History of Present Illness Details Curtis is a very pleasant 62-year-old male who presents to the office today for evaluation management of his chronic lower back pain. Patient was referred by Dr. Franco, orthopedics. Patient reports that he has been suffering with lower back pain off and on since 2016. The pain started after he had hip replacement surgery. Patient states that until recently pain was well controlled and did not bother him terribly. He thought that it was his the artificial hips that were causing the pain so he went and saw Dr. Franco. X-rays of the pelvis showed no concerns with the hardware. Patient reports pain across lower back, worse with transitioning from sit to stand, when he 1st wakes up in the morning and starts moving, when he tries to position himself for sleeping. He reports radiation of the pain down his left leg to the ankle. He denies weakness numbness or tingling of the left lower extremity. Patient is currently taking Tylenol and Motrin as needed for his pain. He last completed physical therapy many years ago, he is willing to attend physical therapy again. Patient has never attempted manual manipulation by chiropractor, acupuncture, massage or injections. Patient does report that he was previously evaluated in the Pain Management office and offered spinal cord stimulator, he was not ready for implantable device at that time. Patient denies red flag symptoms including new loss of bowel, bladder or saddle anesthesia. In terms of muscle damage condition is described as aching, spasming, hot, burning, stabbing, sharp, shooting, cramping, tingling, pins and needles. Pain is negatively impacting patient's enjoyment of life, general activity, recreational activities, sleep and walking. Patient is known diabetic, most recent A1c is 7.0 per patient report. [facility] Medical History (Updated 01/18/23 @ 13:42 by Marissa Galvan, WINDOWS SYSTEMS ARCHITECT, RESPONDER) Positive cardiac stress test Left eye symptoms Gout Peripheral neuropathy Carotid stenosis History of CVA (cerebrovascular accident) Migraines Diabetes Elevated cholesterol HTN (hypertension) Surgical History (Updated 01/13/23 @ 10:36 by Kam Franco MD) History of right hip replacement (03/14/16) History of left hip replacement (07/25/16) H/O endarterectomy Hx of colonoscopy History of ankle surgery Family History Father No problems noted. Mother Heart disease Social History Household Members: Spouse Housing: Other Housing Other:: mobile home Are you a primary workforce investment act career manager to a significant other at home: No Do you presently have visiting nurse or other home services: No Alcohol intake: never Patient Tobacco Use Status: Former Tobacco user Quit Date: 6 years ago Tobacco use type: Cigarette Cigarette Packs Per Day: 3 Cigarettes Per Day: 60.0 Years Smoked: 45 e-Cigarette/Vaping Use: Former Use Second Hand Smoke Exposure: Yes Substance Use Type: Marijuana service: No Current occupational status: employed Review of Systems Const All systems reviewed & are unremarkable except as noted in HPI and below Physical Exam Vital Signs: Last Vital Signs Pulse 64 01/18/23 13:11 Resp 18 01/18/23 13:11 BP 165/75 H 01/18/23 13:11 BMI result Body Mass Index 31.2 General: awake, alert, oriented. Answers questions appropriately. Fully engaged in examination. Skin: warm, dry, intact HEENT: Normocephalic. Hearing intact. Cardiac: External chest normal in appearance. Respiratory: No cough, audible wheezing or stridor. Abdomen: without gross distension. MS: No obvious swelling or deformities. Able to stand on bilateral tiptoes and bilateral heels.? Able to transition from sit to stand unassisted. Ambulates with bilaterally normal heel strike and toe off Tender to palpation across lower back, midline lumbar vertebrae and lumbar paraspinal muscles. Nontender over PSIS THU positive on the left Facet loading positive Lumbar range of motion preserved SLR with and without dorsiflexion positive on the left Neurological: Oriented to person, place, time and situation. Thought process intact. No gait abnormalities appreciated. Psychiatric: Appropriate mood and affect. Good judgment and insight. Assessment & Plan Assessment & Plan (1) Low back pain: Code(s): M54.50 - Low back pain, unspecified (2) Lumbar radiculopathy: Code(s): M54.16 - Radiculopathy, lumbar region (3) Lumbar spondylosis: Code(s): M47.816 - Spondylosis without myelopathy or radiculopathy, lumbar region (4) Strain of lumbar paraspinal muscle: Code(s): S39.012A - Strain of muscle, fascia and tendon of lower back, initial encounter Plan Curtis is a very pleasant 62 year old male who presented to the office today for evaluation and management of his chronic lower back pain. Xray LS ordered for evaluation, no recent imaging for review Order placed for PT eval and treat Cyclobenzaprine 5mg po BID, patient instructed on cautions for use. C/W Tylenol and Ibuprofen as needed Discussed options for treatment including diagnostic interventional testing, epidural steroid injections, peripheral nerve stimulation with Sprint, RFA and more permanent neuromodulation. Patient will attempt conservative treatment with muscle relaxer and PT, plan to further discuss interventional treatment options if no improvement with PT. All questions and concerns have been answered and patient agrees with the plan. Follow up after PT, sooner if needed. Orders: Orders XR lumbar spine 4V min Today M54.50 - Low back pain, unspecified PT Evaluation and Treatment Today M54.50 - Low back pain, unspecified Medications: New cyclobenzaprine may cause drowsiness, no driving while taking this medication 5 mg PO BID PRN 60 tabs 0RF muscle spasm Coding Level of Care Code New Pt Level 4 (82503) Diagnoses Low back pain M54.50 Lumbar radiculopathy M54.16 Lumbar spondylosis M47.816 Strain of lumbar paraspinal muscle S39.012A
== END 2023-01-18 13:33 | disposition home or self-care (01) ==
PROVIDERS: PCP Internal Medicine; Visit Provider Registered Nurse Emergency
DX: M54.50 Low back pain, unspecified (principal); M47.26 Other spondylosis with radiculopathy, lumbar region; S39.012A Strain of muscle, fascia and tendon of lower back, initial encounter
CPT/HCPCS: 99204; 99214

== ENCOUNTER 2023-01-19 07:35 | Outpatient (REF) | payer OTHER, SELFPAY ==
--- NOTE | ~2023-01-19 | XR_ITS ---
EXAMINATION: XR LUMBOSACRAL SPINE WITH OBLIQUES CLINICAL INFORMATION: Low back pain COMPARISON: Lumbar spine x-ray on 04/14/2015 TECHNIQUE: AP, both oblique, and lateral views of the lumbar spine. Lateral view of the lumbosacral junction. FINDINGS: The visualized lumbar vertebrae are intact with normal alignment. Intervertebral disc spaces are markedly reduced at L3-L4 to L5-S1 levels. Multilevel large sharp anterior and lateral syndesmophytes are present. Bilateral oblique x-rays of lumbar spine show intact articular processes with no evidence of spondylolysis. Sacrum and coccyx are intact with normal alignment. Bilateral total hip arthroplasty prostheses are partially visualized. XR/XR lumbar spine 4V min IMPRESSION: 1. Interval development of advanced L3-L4 to L5-S1 degenerative lumbar disc disease and multilevel sharp syndesmophytes. 2. No fracture or dislocation of lumbar spine is seen. 3. Interval performance of bilateral total hip arthroplasty.
== END 2023-01-19 07:36 | disposition home or self-care (01) ==
LOC: HO.XRAY 07:35
PROVIDERS: PCP Internal Medicine; Visit Provider Registered Nurse Emergency
DX: M54.50 Low back pain, unspecified (principal)
CPT/HCPCS: 72110

== ENCOUNTER 2023-03-15 15:00 | Outpatient (RCR) | payer OTHER, SELFPAY ==
--- NOTE | 2023-03-20 11:32 | MHC.PT.DC ---
[facility] [place] [facility] [place] Office [place] Office [address] Isabel Marks [address] [phone] F: [phone] F: [phone] F: [phone] F: [phone] Physical Therapy Discharge Report Diagnosis: LOW BACK PAIN (KP) Date of Surgery: Date of Evaluation: 02/15/23 Date of Discharge: 03/12/23 Treatments to Date: 8 Cancellations to Date: 0 No Shows to Date: 0 Discharge Status: Insurance Declined Tx Recommend MD Follow-up Discharge Summary: Pt is confident in all exercises, no cueing is needed. Continues to have muscle spasms in B hips. Pt reports no change in symptoms since the start of therapy. At this time referring back to MD for follow up. D/C toHEP. Electronically signed by: Mindy Bender PT DPT Please sign and return to therapist. Thank you for your referral.
== END 2023-03-20 11:32 | disposition home or self-care (01) ==
LOC: HO.PT 15:00
PROVIDERS: PCP Internal Medicine; Visit Provider Registered Nurse Emergency
DX: M54.50 Low back pain, unspecified (principal)
CPT/HCPCS: 97110; 97140; 97161

== ENCOUNTER 2023-04-17 14:16 | Emergency (ER) | payer OTHER, SELFPAY ==
[2023-04-17 14:31] VITALS: BP 178/65; PULSE 72; RESP 18; TEMP 37; O2SAT 97; BMI 31.6
--- NOTE | 2023-04-17 14:35 | ECG_ITS ---
Test Reason : HYPERKALEMIA Blood Pressure : / mmHG Vent. Rate : 075 BPM Atrial Rate : 075 BPM P-R Int : 196 ms QRS Dur : 140 ms QT Int : 384 ms P-R-T Axes : 056 -58 036 degrees QTc Int : 428 ms Normal sinus rhythm Right bundle branch block Left anterior fascicular block Bifascicular block Minimal voltage criteria for LVH, may be normal variant ( R in aVL ) Abnormal ECG When compared with ECG of 14-JUN-2017 00:05, No significant change was found Referred By: Ernesto Connors Electronically Signed By:MEENAKSHI KRUSE MD
--- NOTE | 2023-04-17 14:42 | ED.GENADULT ---
HPI - General Adult General Chief complaint: Recheck/Abnormal Lab/Rx Stated complaint: Sent by PCP - abnormal labs Time Seen by Provider: 04/17/23 15:14 History of Present Illness HPI narrative: 63 years old with past medical history of CKD, chronic back pain secondary to lumbar radiculopathy, hypertension, peripheral artery disease diabetes, CAD, presents to the emergency room sent by his primary care physician for abnormal lab work in particular there was concern for patient kidney function and hyperkalemia. Patient reports that he went to his primary care physician today to establish care since is old primary care physician is no longer taking his insurance. Patient reported that he has not actually seen is new primary care physician yet and he just got blood work done. He reports no chest pain, shortness of breath, chills or fever. Denies abdominal pain nausea or vomiting reports that he is urinating as per usual. Reviewing the patient chart patient at baseline creatinine of 1.4 with prior admission to the hospital for [facility] with a creatinine of 2.4. Patient is on lisinopril 5 mg as well as NSAIDs as needed for back pain. Denies recent falls. Related Data Home Medications Medication Instructions Recorded Confirmed albuterol sulfate 90 mcg/actuation 2 puff PO QID PRN Shortness Of 06/28/21 02/05/22 aerosol inhaler Breath Or Wheezing bromfenac 0.07 % eye drops 1 drp ophthalmic (eye) DAILY 06/28/21 02/05/22 (Prolensa) gabapentin 300 mg capsule 300 mg PO QID 06/28/21 02/05/22 hydrochlorothiazide 25 mg tablet 25 mg PO DAILY 06/28/21 02/05/22 metformin 500 mg tablet 1,000 mg PO BID 06/28/21 02/05/22 sitagliptin phosphate 100 mg 100 mg PO DAILY 06/28/21 02/05/22 tablet (Januvia) insulin detemir U-100 100 unit/mL 14 unit subcut BEDTIME 08/30/21 02/05/22 (3 mL) subcutaneous pen (Levemir FlexTouch U-100 Insulin) atorvastatin 20 mg tablet 20 mg PO BEDTIME 12/22/21 02/05/22 cholecalciferol (vitamin D3) 50 50 mcg PO DAILY 02/05/22 02/05/22 mcg (2,000 unit) tablet (Vitamin D3) glipizide 10 mg tablet 10 mg PO BID 02/05/22 02/05/22 allopurinol 100 mg tablet 100 mg PO DAILY 06/06/22 cinnamon bark 500 mg capsule 500 mg PO DAILY 06/06/22 (Cinnamon) glipizide 5 mg tablet 10 mg PO BID 06/06/22 fenofibrate 54 mg tablet 54 mg PO DAILY 01/18/23 Previous Rx's Medication Instructions Recorded cefuroxime axetil 500 mg tablet 500 mg PO BID #6 tabs 02/08/22 doxycycline monohydrate 100 mg 100 mg PO Q12H #6 caps 02/08/22 capsule prednisone 20 mg tablet 40 mg (2 x 20 mg) PO DAILY #2 tabs 02/08/22 metoprolol succinate 25 mg 25 mg PO DAILY #30 tabs 03/09/22 tablet,extended release 24 hr cyclobenzaprine 5 mg tablet 5 mg PO BID PRN muscle spasm #60 01/18/23 tabs amlodipine 10 mg tablet 10 mg PO DAILY #30 tabs 04/17/23 Allergies Allergy/AdvReac Type Severity Reaction Status Date / Time No Known Allergies Allergy Verified 01/18/23 13:10 Review of Systems Review of Systems: Yes all other systems are reviewed and are negative [facility] Past Medical History Medical History (Updated 04/17/23 @ 17:28 by Hosea Mota MD) Positive cardiac stress test Left eye symptoms Gout Peripheral neuropathy Carotid stenosis History of CVA (cerebrovascular accident) Migraines Diabetes Elevated cholesterol HTN (hypertension) Surgical History (Updated 01/13/23 @ 10:36 by Kam Franco MD) History of right hip replacement (03/14/16) History of left hip replacement (07/25/16) H/O endarterectomy Hx of colonoscopy History of ankle surgery Family History Family History Father No problems noted. Mother Heart disease Social History Social History Household Members: Spouse Housing: Other Housing Other:: mobile home Are you a primary floor care specialist to a significant other at home: No Do you presently have visiting nurse or other home services: No Alcohol intake: never Patient Tobacco Use Status: Former Tobacco user Quit Date: 6 years ago Tobacco use type: Cigarette Cigarette Packs Per Day: 3 Cigarettes Per Day: 60.0 Years Smoked: 45 Smoked in Last 30 Days: No e-Cigarette/Vaping Use: Former Use Second Hand Smoke Exposure: Yes Use of substances other than those prescribed or required for medical reasons: No Substance Use Type: Marijuana Advance Directives: No Advance Directives Information Provided: No service: No Current occupational status: employed Physical Exam ED Vital Signs: Vital Signs - 24 hr 04/17/23 14:31 04/17/23 15:05 04/17/23 16:47 Temperature 98.6 F 97.7 F 98.3 F Pulse Rate 72 70 61 Respiratory Rate 18 16 18 Blood Pressure 178/65 H 178/62 H 168/61 H Pulse Oximetry 97 96 Oxygen Delivery Method Room Air Room Air BMI result Body Mass Index 31.6 General: Alert, Not in Distress Skin: No rash, warm HEENT: Atraumatic, No Exudate or Pharyngeal Erythema Resp: Normal Breath sounds bilaterally Cardio: Regular rate and Rhythm, Normal S1, S2 ABD: Abd soft, non tender, no guarding or rebound. Normal Bowel sounds. : No cva tenderness Neuro: Alert, oriented x4, PERRL Strenght 5/5 on all extremities Sensation is preserved in both lower and upper extremities Index to nose: normal Cranial Nerves II-XII grossly intact No dysarthria, or aphasia No neglet. Visual otero are normal bilaterally Psych: Cooperative, NO SI Course Course Course Narrative: RME; 63-year-old male sent to the ED for hyperkalemia. Patient presently asymptomatic. We will do repeat labs and EKG. Charge nurse informed to bring patient back to the ER Medical Decision Making Medical Decision Making MDM Narrative: Presented to the emergency room for abnormall lab work. Will repeat lab work On presentation patient is asymptomatic. Admission/Observation Consideration of admission/observation: Escalation of care including admission/observation considered Lab Data MDM Lab Attestation statement: I reviewed the patient's lab results. Mild increase of creatinine from baseline potassium is 5.8 possibly iatrogenic from use of AMBER-inhibitor. 04/17/23 14:49 04/17/23 14:49 Labs: Lab Results 04/17/23 Range/Units 14:49 WBC 11.1 H (4.8-10.8) X10*3/uL RBC 4.12 L (4.60-5.80) X10*6/uL Hgb 12.6 L (14.0-18.0) g/dl Hct 37.9 L (42.0-52.0) % MCV 92.0 (80.0-98.0) fL MCH 30.6 (27.0-33.0) pg MCHC 33.2 (31.0-36.0) g/dl RDW 12.9 (11.0-16.0) % Plt Count 260 (160-400) X10*3/uL MPV 9.5 (9.4-12.4) fL Immature Gran % (Auto) 0.4 (0.0-0.4) % Neut % (Auto) 62.8 (45-73) % Lymph % (Auto) 22.0 (20-40) % Stephens % (Auto) 5.6 (2-11) % Eos % (Auto) 8.7 H (0-4) % Baso % (Auto) 0.5 (0-2) % Lymph # (Auto) 2.4 (1.2-4.9) X10*3/uL Stephens # (Auto) 0.6 (0.1-1.2) X10*3/uL Eos # (Auto) 1.0 H (0.0-0.4) X10*3/uL Baso # (Auto) 0.1 (0.0-0.2) X10*3/uL Abs Immat Gran (auto) 0.04 H (0.00-0.03) X10*3/uL Absolute Neuts (auto) 7.0 (2.0-8.3) x10*3/uL Absolute Nucleated RBC 0.000 (0.0-0.012) X10*3/uL Nucleated RBC % (auto) 0.0 (0.0-0.2) /100WBC Sodium 136 (135-145) mmol/L Potassium 5.8 H (3.3-5.1) mmol/L Chloride 111 H (96-108) mmol/L Carbon Dioxide 20 L (22-29) mmol/L Anion Gap 11 L (12-20) BUN 38 H (9-16) mg/dL Creatinine 1.56 H (0.5-1.4) mg/dL Estim Creat Clear Calc 47.6 Estimated GFR 45 Random Glucose 184 H (60-115) mg/dL Calcium 10.1 (8.4-10.2) mg/dL Total Bilirubin 0.3 (0.0-1.0) mg/dL AST 21 (5-37) U/L ALT 15 (0-40) U/L Alkaline Phosphatase 39 (39-117) U/L Total Protein 7.2 (6.5-8.0) g/dL Albumin 4.2 (3.5-5.0) g/dL Independent Interpretation I performed an independent interpretation of an: EKG (Personally reviewed, sinus rhythm with left anterior hemiblock and right bundle branch block) Discharge Plan Discharge Clinical Impression: Acute hyperkalemia Patient Disposition: Home, Self-Care Instructions: Hyperkalemia (ED) Additional Instructions: You were seen in the emergency room for worsening kidney function and high potassium. Your lab work showed a mild increase of your creatinine and a mild hypokalemia with a level of 5.8. At this time this does not require acute correction, you received calcium in the ED and it is possible that this secondary to the use of a medication called lisinopril. For this we discontinued your lisinopril and increase the dose of amlodipine from 5 mg to 10 mg once a day. Prescription of the new amlodipine tablet was sent to her pharmacy. Please started tomorrow. Please follow-up with your primary care physician within 1 or 2 days to repeat your blood work. In case you experience any palpitation, shortness of breath, chest pain please return to the emergency room for evaluation. Prescriptions: New amlodipine 10 mg tablet 10 mg PO DAILY Qty: 30 0RF Discontinued amlodipine 5 mg tablet 5 mg PO DAILY Qty: 30 0RF Rx Instructions: OVERDUE FOR APPT. PLEASE CALL [phone] TO SCHEDULE FOLLOW UP FOR 2022. If you do not want to schedule appt with instrumentation technologist, you can opt to get future refills from your PCP. Thank you. lisinopril 5 mg tablet 5 mg PO DAILY Qty: 90 3RF No Action metoprolol succinate 25 mg tablet extended release 24 hr 25 mg PO DAILY Qty: 30 0RF Rx Instructions: Must make cardiology appt for refills glipizide 10 mg Tablet 10 mg PO BID cholecalciferol (vitamin D3) [Vitamin D3] 50 mcg (2,000 unit) Tablet 50 mcg PO DAILY prednisone 20 mg Tablet 40 mg PO DAILY Qty: 2 0RF doxycycline monohydrate 100 mg Capsule 100 mg PO Q12H Qty: 6 0RF cefuroxime axetil 500 mg tablet 500 mg PO BID Qty: 6 0RF Levemir FlexTouch U100 Insulin 100 unit/mL (3 mL) insulin pen 14 unit subcut BEDTIME metformin 500 mg tablet 1,000 mg PO BID gabapentin 300 mg capsule 300 mg PO QID Prolensa 0.07 % drops 1 drp ophthalmic (eye) DAILY Rx Instructions: instill in both eyes albuterol sulfate 90 mcg/actuation HFA aerosol inhaler 2 puff PO QID PRN (Reason: Shortness Of Breath Or Wheezing) Januvia 100 mg tablet 100 mg PO DAILY hydrochlorothiazide 25 mg tablet 25 mg PO DAILY atorvastatin 20 mg tablet 20 mg PO BEDTIME allopurinol 100 mg tablet 100 mg PO DAILY glipizide 5 mg tablet 10 mg PO BID cinnamon bark [Cinnamon] 500 mg capsule 500 mg PO DAILY fenofibrate 54 mg tablet 54 mg PO DAILY cyclobenzaprine 5 mg tablet 5 mg PO BID PRN (Reason: muscle spasm) Qty: 60 0RF Rx Instructions: may cause drowsiness, no driving while taking this medication Interventions: ED Discharge Assessment Last Done: 04/17/23 18:09 Discharge Date/Time: 04/17/23 18:10
[2023-04-17 14:56] LABS: MANUAL DIFF FLAG NO
[2023-04-17 14:59] LABS: Basophils Absolute Auto 0.1 X10*3/uL (0.0-0.2); Basophils Percent Auto 0.5 % (0-2); Eosinophils Percent Auto 8.7 % (0-4); Hematocrit 37.9 % (42.0-52.0); Hemoglobin 12.6 g/dl (14.0-18.0); Imm Gran Abs Auto 0.04 X10*3/uL (0.00-0.03); Imm Gran Pct Auto 0.4 % (0.0-0.4); Lymphocytes Absolute Auto 2.4 X10*3/uL (1.2-4.9); Mean Corpuscular HGB Conc 33.2 g/dl (31.0-36.0); Mean Corpuscular Hemoglobin 30.6 pg (27.0-33.0); Mean Platelet Volume 9.5 fL (9.4-12.4); Monocytes Absolute Auto 0.6 X10*3/uL (0.1-1.2); Monocytes Percent Auto 5.6 % (2-11); Neutrophils Percent Auto 62.8 % (45-73); Platelet Count 260 X10*3/uL (160-400); Red Blood Count 4.12 X10*6/uL (4.60-5.80); Red Cell Distribution Width 12.9 % (11.0-16.0); White Blood Count 11.1 X10*3/uL (4.8-10.8)
[2023-04-17 15:05] VITALS: BP 178/62; PULSE 70; RESP 16; TEMP 36.5
--- NOTE | 2023-04-17 15:07 | PC.NURSE ---
Patient comes to ED from home due to receiving a phone call from PCP due to an abnormal potassium level. Patient is alert and oriented. Respirations even and unlabored. Patient is asymptomatic at this time. Patient states that he has 6/10 bilateral leg and lower back pain that has been going on for about 1 month and a half.
[2023-04-17 15:26] LABS: Alanine Aminotransferase 15 U/L (0-40); Albumin Level 4.2 g/dL (3.5-5.0); Alkaline Phosphatase 39 U/L (39-117); Anion Gap 11 (12-20); Aspartate Amino Transferase 21 U/L (5-37); Bilirubin Total 0.3 mg/dL (0.0-1.0); Blood Urea Nitrogen 38 mg/dL (9-16); Calcium 10.1 mg/dL (8.4-10.2); Carbon Dioxide 20 mmol/L (22-29); Chloride 111 mmol/L (96-108); Creatinine Clr Calc Pharmacy 47.6; Estimated Glomerular Filt Rate 45; Glucose Random 184 mg/dL (60-115); Sodium 136 mmol/L (135-145); Total Protein 7.2 g/dL (6.5-8.0)
[2023-04-17 15:31] LABS: Potassium 5.8 mmol/L (3.3-5.1)
[2023-04-17 16:47] VITALS: BP 168/61; PULSE 61; RESP 18; TEMP 36.8; O2SAT 96
== END 2023-04-17 18:10 | disposition home or self-care (01) ==
PROVIDERS: Physician Assistant; Emergency Provider Student in an Organized Health Care Education/Training Program
DX: E87.5 Hyperkalemia (principal); I45.10 Unspecified right bundle-branch block; R94.31 Abnormal electrocardiogram [ECG] [EKG]; R79.89 Other specified abnormal findings of blood chemistry; I25.10 Atherosclerotic heart disease of native coronary artery without angina pectoris; Z79.899 Other long term (current) drug therapy; Z87.891 Personal history of nicotine dependence
CPT/HCPCS: 36415; 80053; 85025; 93005; 99284

== ENCOUNTER → 2023-04-17 14:35 | Outpatient (BNV) | payer OTHER, SELFPAY | PROVIDERS: Emergency Provider Student in an Organized Health Care Education/Training Program; Visit Provider Internal Medicine Cardiovascular Disease | DX: E87.5 Hyperkalemia (principal) | CPT/HCPCS: 93010 ==

== ENCOUNTER 2023-05-17 14:41 | Outpatient (REF) | payer OTHER, SELFPAY ==
[2023-05-17 15:01] LABS: MANUAL DIFF FLAG NO
[2023-05-17 15:29] LABS: Basophils Absolute Auto 0.1 X10*3/uL (0.0-0.2); Basophils Percent Auto 0.6 % (0-2); Hematocrit 41.3 % (42.0-52.0); Hemoglobin 13.7 g/dl (14.0-18.0); Imm Gran Abs Auto 0.05 X10*3/uL (0.00-0.03); Imm Gran Pct Auto 0.5 % (0.0-0.4); Lymphocytes Absolute Auto 2.9 X10*3/uL (1.2-4.9); Lymphocytes Percent Auto 28.4 % (20-40); Mean Corpuscular HGB Conc 33.2 g/dl (31.0-36.0); Mean Corpuscular Hemoglobin 30.4 pg (27.0-33.0); Mean Corpuscular Volume 91.6 fL (80.0-98.0); Mean Platelet Volume 9.4 fL (9.4-12.4); Monocytes Absolute Auto 0.7 X10*3/uL (0.1-1.2); Monocytes Percent Auto 6.5 % (2-11); Neutrophils Absolute Auto 5.4 x10*3/uL (2.0-8.3); Platelet Count 314 X10*3/uL (160-400); Red Blood Count 4.51 X10*6/uL (4.60-5.80); Red Cell Distribution Width 12.6 % (11.0-16.0)
[2023-05-17 15:30] LABS: Appearance Urine Clear; Color Urine Dark Yellow; Glucose Urine UA Negative (Negative); Leukocyte Esterase Urine Negative (Negative); Nitrite Urine Negative (Negative); Specific Gravity - Urine 1.015 (1.005-1.025); UMIC TRIGGER UA YES; Urine Blood Negative (Negative); Urine Ketones Negative (Negative); Urine Protein 100 (2+) mg/dL (Neg-Trace)
[2023-05-17 15:33] LABS: Bacteria Urine None Seen (None Seen); Hyaline Casts Urine 0-2 /LPF (0-2); RBC Urine 0-2 /HPF (0-2); WBC Urine 0-5 /HPF (0-5)
[2023-05-17 15:35] LABS: Estimated Average Glucose 151 mg/dL; Hemoglobin A1c % 6.9 % (<6.0)
[2023-05-17 15:50] LABS: Creatinine Urine 64.47 mg/dL; Protein/Creatinine Ratio, Ur 2.11 (<0.2); Total Protein Urine Random 136 mg/dL (<12)
[2023-05-17 15:55] LABS: Parathyroid Hormone Intact 60.9 pg/mL (8.7-77.1)
[2023-05-17 16:00] LABS: Anion Gap 11 (12-20); Blood Urea Nitrogen 32 mg/dL (9-16); Calcium 10.3 mg/dL (8.4-10.2); Carbon Dioxide 27 mmol/L (22-29); Chloride 106 mmol/L (96-108); Estimated Glomerular Filt Rate 57; Iron 83 mcg/dL (45-160); Percent Iron Saturation 27 % (15-50); Potassium 4.8 mmol/L (3.3-5.1); Sodium 139 mmol/L (135-145); Total Iron Binding Capacity 311 mcg/dL (228-428); Unsaturated Iron Binding 228 ug/dL; Uric Acid 6.9 mg/dL (3.4-7.0)
[2023-05-17 16:02] LABS: Microalbum/Creatinine Ratio Ur 1487.5 ug/mg cr (<30)
[2023-05-17 16:13] LABS: Ferritin 82 ng/mL (20-250); Vitamin D 25-OH Total 33.8 ng/mL (>30)
== END 2023-05-17 14:42 | disposition home or self-care (01) ==
LOC: HO.LAB 14:41
PROVIDERS: Visit Provider Internal Medicine
DX: N18.31 Chronic kidney disease, stage 3a (principal)
CPT/HCPCS: 36415; 80051; 81001; 82043; 82306; 82310; 82565; 82570; 82728; 83036; 83540; 83735; 83970; 84100; 84156; 84520; 84550; 85025

== ENCOUNTER 2023-08-16 14:19 | Outpatient (REF) | payer OTHER, SELFPAY ==
[2023-08-16 14:44] LABS: MANUAL DIFF FLAG NO
[2023-08-16 15:14] LABS: Basophils Absolute Auto 0.1 X10*3/uL (0.0-0.2); Basophils Percent Auto 0.5 % (0-2); Eosinophils Absolute Auto 0.7 X10*3/uL (0.0-0.4); Eosinophils Percent Auto 7.1 % (0-4); Hematocrit 38.8 % (42.0-52.0); Hemoglobin 12.6 g/dl (14.0-18.0); Imm Gran Abs Auto 0.03 X10*3/uL (0.00-0.03); Imm Gran Pct Auto 0.3 % (0.0-0.4); Lymphocytes Absolute Auto 2.6 X10*3/uL (1.2-4.9); Lymphocytes Percent Auto 25.2 % (20-40); Mean Corpuscular HGB Conc 32.5 g/dl (31.0-36.0); Mean Corpuscular Hemoglobin 30.1 pg (27.0-33.0); Mean Corpuscular Volume 92.8 fL (80.0-98.0); Mean Platelet Volume 9.8 fL (9.4-12.4); Monocytes Absolute Auto 0.8 X10*3/uL (0.1-1.2); Monocytes Percent Auto 7.8 % (2-11); Neutrophils Percent Auto 59.1 % (45-73); Platelet Count 299 X10*3/uL (160-400); Red Blood Count 4.18 X10*6/uL (4.60-5.80); Red Cell Distribution Width 13.6 % (11.0-16.0); White Blood Count 10.2 X10*3/uL (4.8-10.8)
== END 2023-08-16 14:20 | disposition home or self-care (01) ==
LOC: HO.LAB 14:19
PROVIDERS: Visit Provider Internal Medicine
DX: N18.31 Chronic kidney disease, stage 3a (principal)
CPT/HCPCS: 36415; 85025